=== PATIENT | female | born 1955 | race Caucasian/White ===

== ENCOUNTER 2021-12-16 14:32 | Observation (INO) | payer MEDICARE, SELFPAY ==
[2021-12-16] VITALS (29 sets, daily range): BP systolic 102–142; BP diastolic 76–99; PULSE 82–142; RESP 16–37; TEMP 36.6; O2SAT 90–98; BMI 44.7
--- NOTE | ~2021-12-16 | XR_ITS ---
EXAMINATION: XR chest 1V portable DATE: 12/16/2021 14:52 INDICATION: Chest pain. TECHNIQUE: A single frontal view of the chest was obtained. COMPARISON: Chest 2 views 01/21/2014, CT abdomen and pelvis 01/19/2014 FINDINGS: Sensitivity is decreased by obesity. There are airspace opacities in the lower lung zones. No visible pleural effusion. No pneumothorax. Cardiomegaly is noted. IMPRESSION: 1. Airspace opacities in the lower lung zones, consistent with atelectasis versus pneumonia. 2. Cardiomegaly. Reviewed, dictated and finalized at location A. IMPRESSION: 1. Airspace opacities in the lower lung zones, consistent with atelectasis vers us pneumonia. 2. Cardiomegaly.
--- NOTE | ~2021-12-16 | US_ITS ---
EXAMINATION: US venous doppler [facility] DATE: 12/17/2021 11:29 INDICATION: Bilateral lower limb swelling, shortness of breath TECHNIQUE: Jernigan scale images without and with compression and Doppler images of the bilateral lower e xtremity veins were obtained. COMPARISON: None FINDINGS: The right common femoral vein, profunda femoral vein, femoral vein, popliteal vein, peroneal trunk, p osterior tibial veins, and greater saphenous vein are patent. The left common femoral vein, profunda femoral vein, femoral vein, popliteal vein, peroneal trunk, po sterior tibial veins, and greater saphenous vein are patent. IMPRESSION: 1. Patent bilateral lower extremity veins. No evidence of deep venous thrombosis. Reviewed, dictated and finalized at location A. IMPRESSION: 1. Patent bilateral lower extremity veins. No evidence of deep venous thrombosi s.
--- NOTE | 2021-12-16 14:42 | ECG_ITS ---
Measurements Intervals [place] Rate: 133 P: CT: 0 QRS: 109 QRSD: 145 T: -51 QT: 316 QTc: 472 Interpretive Statements ATRIAL FIBRILLATION WITH RAPID VENTRICULAR RESPONSE RIGHT AXIS DEVIATION [QRS AXIS > 100] RIGHT BUNDLE BRANCH BLOCK [120+ ms QRS DURATION, UPRIGHT V1, 40+ ms S IN I/aVL/V4/V5/V6] NONSPECIFIC T-WAVE ABNORMALITY ABNORMAL ECG NO PREVIOUS ECG AVAILABLE FOR COMPARISON Electronically Signed On 12-16-2021 17:05:43 CDT by Mac Acosta M.D.
[2021-12-16 15:06] LABS: Basophils Absolute Auto 0.1 K/mm3 (0.0-0.1); Basophils Percent Auto 0.8 % (0.2-1.2); Eosinophils Absolute Auto 0.1 K/mm3 (0-0.3); Eosinophils Percent Auto 1.4 % (0-4.4); Hematocrit 42.3 % (37.0-47.0); Hemoglobin 13.5 g/dL (12.0-15.0); Immature Granulocyte Absolute 0.01 K/mm3 (0.00-0.031); Immature Granulocyte Percent A 0.1 % (0-0.5); Lymphocytes Absolute Auto 1.71 K/mm3 (0.9-3.2); Lymphocytes Percent Auto 21.8 % (18.3-44.2); Mean Corpuscular HGB Conc 31.9 g/dl (32-36); Mean Corpuscular Hemoglobin 29.8 pg (26-34); Mean Corpuscular Volume 93.4 fl (80-100); Mean Platelet Volume 9.4 fl (7.4-10.4); Monocytes Absolute Auto 0.7 K/mm3 (0.1-0.6); Monocytes Percent Auto 8.7 % (2.6-8.5); Neutrophils Absolute Auto 5.3 K/mm3 (1.3-6.7); Neutrophils Percent Auto 67.2 % (45.5-73.1); Platelet Count Result 206 k/mm3 (150-375); Red Blood Count 4.53 M/mm3 (4.2-5.4); White Blood Count 7.9 K/mm3 (4.5-10.0)
[2021-12-16 15:16] LABS: Alanine Aminotransferase 77 U/L (4-35); Albumin Level 3.5 g/dL (3.5-5.1); Alkaline Phosphatase 70 U/L (38-126); Anion Gap 7 mmol/L (8-16); Aspartate Amino Transferase 77 U/L (14-36); Bilirubin,Total 0.5 mg/dL (0.2-1.3); Blood Urea Nitrogen 21 mg/dL (7-17); Calcium 8.7 mg/dL (8.4-10.2); Carbon Dioxide 23 mmol/L (22-30); Chloride 109 mmol/L (98-107); Estimated CRCL calculation 75 ml/min; Estimated Glomerular Filt Rate > 60; Glucose 103 mg/dL (65-110); Lipase 152 U/L (23-300); Potassium 4.1 mmol/L (3.4-5.0); Sodium 139 mmol/L (137-145)
[2021-12-16 15:25] LABS: INR 1.1; Prothrombin Time 13.7 Seconds (11.1-14.7)
--- NOTE | 2021-12-16 15:25 | ED.ARRPALP ---
HPI - Arrhythmia/Palpitations General Chief Complaint: Arrhythmia/Palpitations Stated Complaint: irregular heartbeat with sob x 1 week Time Seen by Provider: 12/16/21 14:42 Source: RN notes reviewed History of Present Illness HPI narrative: Patient presents emergency department from PCPs office for rapid heart rate. The patient went to Dr. Reda's office today and was found to be in A. fib with RVR patient does not have a history of atrial fibrillation. States that she has intermittently felt her heart was racing over the past week with some intermittent shortness of breath states she does have an occasional feeling of chest tightness as well. She denies being on any blood thinners she denies any fevers or chills abdominal pain nausea vomiting Related Data Home Medications Medication Instructions Recorded Confirmed calcium carbonate 600 mg-vitamin 1 tablet PO DAILY 12/16/21 D3 20 mcg (800 unit) chewable tablet cholecalciferol (vitamin D3) 25 25 mcg PO DAILY 12/16/21 mcg (1,000 unit) capsule vitamin B complex 1 tablet PO DAILY 12/16/21 Allergies Allergy/AdvReac Type Severity Reaction Status Date / Time Mold (Blue) Cheese AdvReac Unknown THROAT Uncoded 12/16/21 15:41 SWELLING Review of Systems Review of Systems: Gen.: Denies fevers or chills ENT: Denies congestion Respiratory: Ports shortness of CV: See HPI GI: Denies abdominal pain nausea, emesis or diarrhea Musculoskeletal: Denies back pain or muscle pain Neuro: Denies numbness, tingling, weakness or focal weakness Skin: Denies rash Except as documented, all other systems reviewed and negative [facility] Past Medical History Medical History Cystocele, midline Herpes zoster without complication Symptomatic menopausal or female climacteric states Vitamin D deficiency, unspecified Family History Family History Mother Family history of congenital heart disease Father Family history of cardiovascular disease Cerebrovascular accident, Onset Age: 47 Grandparent Diabetes mellitus Other Hypertension Social History Social History (Updated 12/16/21 @ 16:11 by Shakeel Suero DO) Smoking status: Never smoker Alcohol intake: never Exam Narrative: APPEARANCE: No acute distress, nontoxic, resting in bed EYES: EOMI HEENT: Normocephalic, atraumatic, OMM RESPIRATORY: No respiratory distress Clear to auscultation bilaterally with no rhonchi wheezing or rales. CARDIOVASCULAR: Irregular and tachycardic without murmurs rubs or gallops. ABDOMINAL: Soft, nontender, nondistended, no rebound or guarding MUSCULOSKELETAl: Moves all extremities. No clubbing, cyanosis or edema. NEURO: Awake and alert. Following commands, speech normal, no focal deficits SKIN:: Warm, dry. No rashes lesions or abrasions PSYCHIATRIC: Normal affect/mood, Course Course Emergency Course: Discussed with FUR CUTTER Oralia for Dr. Acosta agrees with consult Discussed with FUR CUTTER Beck for Dr. Vargas agrees with admission Discussed with patient and family results of workup and diagnosis. Discussed need for admission. Patient and family understand and agree to current treatment plan Vital Signs Vital signs: Vital Signs Temperature 97.8 F 12/16/21 14:39 Pulse Rate 142 H 12/16/21 14:39 Respiratory Rate 32 H 12/16/21 14:39 Blood Pressure 111/99 H 12/16/21 14:39 Pulse Oximetry 97 12/16/21 14:39 Temperature 97.8 F 12/16/21 14:39 Pulse Rate 121 H 12/16/21 15:27 Respiratory Rate 32 H 12/16/21 14:39 Blood Pressure 111/99 H 12/16/21 15:27 Pulse Oximetry 97 12/16/21 14:39 MDM - Arrhythmia/Palpitations Lab Data Result diagrams: 12/16/21 15:01 12/16/21 15:01 Labs: Lab Results 12/16/21 12/16/21 12/16/21 Range/Units 15:01 15:01 15:01 WBC 7.9 (4.5-10.0) K/mm3 RBC 4.53 (4
[2021-12-16 15:26] LABS: Partial Thromboplastin Time 25.3 SECONDS (22.3-36.8)
[2021-12-16 15:27] LABS: Troponin I 0.014 ng/mL (0.000-0.034)
[2021-12-16] MEDS: dilTIAZem 100 MG/100 ML 100 MG/100 ML BAG IV CONT (15:27)
[2021-12-16] MEDS: dilTIAZem HCl INJ 25 MG/5 ML VIAL 5 MG IV PUSH (15:30)
[2021-12-16 15:40] LABS: NT Pro B Type Natriuretic Pept 3490 pg/mL (5-100)
[2021-12-16] MEDS: ENOXAPARIN 100 MG/ML SYRINGE 95 MG SUB-Q (15:46)
[2021-12-16] MEDS: ENOXAPARIN 30 MG/0.3 ML SYRINGE SUB-Q (15:46)
[2021-12-16 16:29] LABS: SARS-CoV-2 RNA PCR Negative
--- NOTE | 2021-12-16 18:41 | PM.IMHP ---
H&P: HPI History of Present Illness Date/Time: 12/16/21 18:41 Chief Complaint: Shortness of breath and rapid heart rate Narrative: Patient is a 66-year-old female with no significant past medical history who presented to the ED from her primary care provider's office for rapid heart rate and abnormal rhythm. Patient stated that this is been going on for a couple of days where she is feeling heaviness in her left upper shoulder and she is experiencing nausea. Patient did state that she does get very short of breath with moving or walking and patient did get very short of breath when I asked her to sit up. She also complained of severe exhaustion which she stated is she is not a nap for however she has been taking 4 hour naps pretty regularly. She states that she has been urinating okay and has been very stressed out be due to her present illness. BNP is slightly elevated she denies any sweats, fevers, chills, numbness, tingling, dizziness. Patient is being admitted to the hospital service under observation. Review of Systems Review of Systems: All systems reviewed & are unremarkable except as noted in HPI and below PMFSH Past Medical History Medical History (Updated 12/16/21 @ 18:59 by LC Gonzalez) Back fracture Cystocele, midline Elbow fracture Foot fracture Hand fracture Herpes zoster without complication Symptomatic menopausal or female climacteric states Vitamin D deficiency, unspecified Family History Family History Mother Family history of congenital heart disease Father Family history of cardiovascular disease Cerebrovascular accident, Onset Age: 47 Grandparent Diabetes mellitus Other Hypertension Social History Social History (Updated 12/16/21 @ 18:56 by LC Gonzalez) Social History: Patient lives at home with her and is the primary caregiver for her . Her son and her daughter are her surrogate and she wishes to be a full code at this time. Smoking status: Never smoker Alcohol intake: never Substance use: never Living arrangements: with family Occupation/Education: retired Additional occupation/education comments: Teacher Gender identity (if verbalized by the patient): Female Sexual Orientation (if Verbalized by the Patient): Straight or Heterosexual Spiritual care concerns: No Agree to blood products: Yes Meds Home Medications and Allergies Home Medications Medication Instructions Recorded Confirmed Type calcium carbonate 600 mg-vitamin 1 tablet PO DAILY 12/16/21 History D3 20 mcg (800 unit) chewable tablet cholecalciferol (vitamin D3) 25 25 mcg PO DAILY 12/16/21 History mcg (1,000 unit) capsule vitamin B complex 1 tablet PO DAILY 12/16/21 History Allergies Allergy/AdvReac Type Severity Reaction Status Date / Time Mold (Blue) Cheese AdvReac Unknown THROAT Uncoded 12/16/21 15:41 SWELLING Vital Signs Vital Signs - 24 hr 12/16/21 14:38 12/16/21 14:39 12/16/21 14:42 Temperature 97.8 F Pulse Rate 133 H 142 H 124 H Respiratory Rate 21 H 32 H 29 H Blood Pressure 111/99 H 111/99 H Pulse Oximetry 90 97 92 12/16/21 14:47 12/16/21 15:27 12/16/21 15:46 Temperature Pulse Rate 134 H 121 H 110 H Respiratory Rate 23 H 24 H Blood Pressure 111/99 H Pulse Oximetry 93 12/16/21 15:48 12/16/21 16:06 12/16/21 16:17 Temperature Pulse Rate 122 H 110 H 110 H Respiratory Rate 25 H 29 H 21 H Blood Pressure Pulse Oximetry 12/16/21 16:30 12/16/21 16:32 Temperature Pulse Rate 108 H 89 Respiratory Rate 28 H 26 H Blood Pressure 115/78 Pulse Oximetry Exam Const: General: cooperative, well developed, alert, awake, acute distress other (with movement), anxious and tired appearing Nutritional Appearance: well nourished Orientation/consciousness: patient oriented x3 Limitations:
[2021-12-16 18:53] LABS: Troponin I 0.015 ng/mL (0.000-0.034)
--- NOTE | 2021-12-16 21:14 | ADMGEN ---
This patient, Kandice Helton, was admitted to IMU Room 213-01 at 2009. Patient/family oriented to hospital policies and general routines including ID bracelet, bed and alarms, visiting hours, pain management, procedures, bathroom and other care routines, personal items, smoking policy, room service/diet, and visiting hours. Information on how to activate the Rapid Response Team has been discussed. Patient/Family are encouraged to report perceived risks to care and to ask questions if they do not understand what they are told or what they should do.
[2021-12-16 21:49] LABS: Troponin I 0.017 ng/mL (0.000-0.034)
--- NOTE | 2021-12-16 22:54 | ADMGEN ---
This patient, Kandice Helton, was admitted to IMU Room 213-01 at 2250. Patient/family oriented to hospital policies and general routines including ID bracelet, bed and alarms, visiting hours, pain management, procedures, bathroom and other care routines, personal items, smoking policy, room service/diet, and visiting hours. Information on how to activate the Rapid Response Team has been discussed. Patient/Family are encouraged to report perceived risks to care and to ask questions if they do not understand what they are told or what they should do.
[2021-12-17] VITALS (18 sets, daily range): BP systolic 100–130; BP diastolic 63–91; PULSE 73–107; RESP 18–22; TEMP 35.2–36.9; O2SAT 93–98
--- NOTE | 2021-12-17 | ECHO_ITS ---
Patient Info Name: Kandice Helton Age: 66 years : 1955 Gender: Female Ht: 63 in Wt: 274 lbs BSA: 2.43 m2 HR: 82 bpm BP: 100 / 63 mmHg Heart Rhythm: Atrial Fibrillation Technical Quality: Fair Exam Date: 12/17/2021 8:23 AM Exam Location: [facility] Pulmonary Patient Status: Outpatient Admit Date: 12/16/2021 Staff Ordering Physician: Vito Paz Customer Service Associate: India Navarro RDCS Attending Provider: Latoya Vargas MD Referring Physician: Jackson CRAWFORD; Exam Type: CA echo doppler color flow Study Info Indications - fluid overload Complete two-dimensional, color flow and Doppler transthoracic echocardiogram is performed. Summary 1. Complete two-dimensional, color flow and Doppler transthoracic echocardiogram is performed. 2. Left ventricular chamber dimension is moderately enlarged. 3. Left ventricular systolic function is severely reduced, estimated at 30-35%. 4. There is no increased left ventricular wall thickness. 5. The left ventricular diastolic function is abnormal. 6. Right ventricular chamber dimension is mildly enlarged. 7. Right ventricular systolic function is reduced. 8. Left atrial chamber dimension is moderately enlarged. 9. Right atrial chamber dimension is moderately enlarged. 10. There is mild to moderate mitral valve regurgitation. 11. There is mild tricuspid valve regurgitation. 12. Mild pulmonary hypertension, estimated pulmonary arterial systolic pressure is 35 mmHg. 13. There is mild pulmonic regurgitation. Left Ventricle Left ventricular chamber dimension is moderately enlarged. Left ventricular systolic function is severely reduced, estimated at 30-35%. There is no increased left ventricular wall thickness. The left ventricular diastolic function is abnormal. Right Ventricle Right ventricular chamber dimension is mildly enlarged. Right ventricular systolic function is reduced. Left Atria Left atrial chamber dimension is moderately enlarged. Right Atria Right atrial chamber dimension is moderately enlarged. Atrial Septum Intact interatrial septum visualized by color flow imaging. Aortic Valve The aortic valve is trileaflet. There is mild aortic valve sclerosis. There is no aortic valve stenosis. There is trace aortic valve regurgitation. Pulmonic Valve The pulmonic valve is normal. There is no pulmonic valve stenosis. There is mild pulmonic regurgitation. Mitral Valve The mitral valve has normal leaflets. There is no mitral valve stenosis. There is mild to moderate mitral valve regurgitation. Tricuspid Valve The tricuspid valve leaflets are normal. There is no significant tricuspid valve stenosis. There is mild tricuspid valve regurgitation. Mild pulmonary hypertension, estimated pulmonary arterial systolic pressure is 35 mmHg. Pericardium/Pleural The pericardium appears normal. There is small pericardial effusion. Inferior Vena Cava Dilated inferior vena cava with <50% collapse upon inspiration consistent with elevated right atrial pressure, 15 mmHg. Aorta The aortic root size at the sinus of Valsalva is normal. Left Ventricular Outflow Tract Name Value Normal LVOT 2D LVOT Diameter 2.0 cm
[2021-12-17] MEDS: FUROSEMIDE INJ 40 MG/4 ML VIAL IV PUSH (00:04)
[2021-12-17 06:01] LABS: Basophils Absolute Auto 0.1 K/mm3 (0.0-0.1); Basophils Percent Auto 0.8 % (0.2-1.2); Eosinophils Absolute Auto 0.1 K/mm3 (0-0.3); Eosinophils Percent Auto 2.3 % (0-4.4); Hematocrit 39.6 % (37.0-47.0); Hemoglobin 12.6 g/dL (12.0-15.0); Immature Granulocyte Absolute 0.01 K/mm3 (0.00-0.031); Immature Granulocyte Percent A 0.2 % (0-0.5); Lymphocytes Absolute Auto 1.53 K/mm3 (0.9-3.2); Lymphocytes Percent Auto 24.8 % (18.3-44.2); Mean Corpuscular HGB Conc 31.8 g/dl (32-36); Mean Corpuscular Hemoglobin 29.9 pg (26-34); Mean Corpuscular Volume 94.1 fl (80-100); Mean Platelet Volume 9.5 fl (7.4-10.4); Monocytes Absolute Auto 0.6 K/mm3 (0.1-0.6); Monocytes Percent Auto 9.4 % (2.6-8.5); Neutrophils Absolute Auto 3.9 K/mm3 (1.3-6.7); Neutrophils Percent Auto 62.5 % (45.5-73.1); Platelet Count Result 190 k/mm3 (150-375); Red Blood Count 4.21 M/mm3 (4.2-5.4); Red Cell Distribution Width 14.8 % (11.5-14.5); White Blood Count 6.2 K/mm3 (4.5-10.0)
[2021-12-17 06:06] LABS: Alanine Aminotransferase 77 U/L (4-35); Albumin Level 3.4 g/dL (3.5-5.1); Alkaline Phosphatase 62 U/L (38-126); Anion Gap 5 mmol/L (8-16); Aspartate Amino Transferase 67 U/L (14-36); Bilirubin,Total 0.7 mg/dL (0.2-1.3); Blood Urea Nitrogen 14 mg/dL (7-17); Calcium 8.3 mg/dL (8.4-10.2); Carbon Dioxide 27 mmol/L (22-30); Chloride 109 mmol/L (98-107); Estimated CRCL calculation 81 ml/min; Estimated Glomerular Filt Rate > 60; Glucose 82 mg/dL (65-110); Potassium 3.2 mmol/L (3.4-5.0); Sodium 141 mmol/L (137-145)
[2021-12-17] MEDS: POTASSIUM CHLORIDE 20 MEQ TABLET 40 MEQ PO (13:28)
--- NOTE | 2021-12-17 15:09 | PM.CNCAR ---
Assessment and Plan Assessment and plan (1) Atrial fibrillation with rapid ventricular response: Code(s): I48.91 - Unspecified atrial fibrillation Status: Acute Assessment and Plan: Atrial fibrillation with rapid ventricular response for unknown duration. Possibly as far back as Evgeny or beyond. She was having palpitations at that time. She has a chads Vasc score of 3 given heart failure, age and gender. Anticoagulation is warranted. I talked about the risks, benefits alternatives of anticoagulation she is agreeable. Also talked about the different anticoagulants including Eliquis, Xarelto or warfarin. Her is on Eliquis and she is familiar with this medication. Therefore will start her on Eliquis 5 mg p.o. b.i.d.. Also talked about rate versus rhythm control strategy. Initially will pursue rate control. Will start her on medications and pursue outpatient elective cardioversion after minimum of 4 weeks without interrupted anticoagulation. Will discontinue her diltiazem drip and start her on metoprolol tartrate 25 mg p.o. b.i.d. and transition to long-acting metoprolol succinate because of her cardiomyopathy and heart failure. Will check a TSH and T4 level. Will ensure that her magnesium and potassium have been checked in adequately replaced if need be. Apnea link will be ordered also for a screen for sleep apnea as a possible etiology of her sleep apnea. Echocardiogram is already ordered and read (2) Acute systolic (congestive) heart failure: Code(s): I50.21 - Acute systolic (congestive) heart failure Status: Acute Assessment and Plan: Heart failure is likely from cardiomyopathy related to atrial fibrillation with rapid ventricular response albeit other possibilities do remain. Will start Entresto 24/26 mg p.o. b.i.d.. Will start furosemide 20 mg daily. And follow electrolytes with a BMP in the morning. She will need an outpatient stress test and follow-up echocardiogram in 3 months (3) Cardiomyopathy: Code(s): I42.9 - Cardiomyopathy, unspecified Status: Acute Assessment and Plan: New onset severe cardiomyopathy. Likely related atrial fibrillation with rapid ventricular response albeit cannot exclude other etiologies to this point. Due to her risk of sudden cardiac with an ejection fraction less than 35%, LifeVest will be ordered. Patient is agreeable and understands (4) Right bundle branch block: Code(s): I45.10 - Unspecified right bundle-branch block Status: Acute History of Present Illness History of Present Illness Consult date/time: 12/17/21 15:09 Requesting physician: Shakeel Suero DO Consult reason: atrial fibrillation Reason For Visit: Atrial fibrillation with RVR Narrative: Reason for consultation: Atrial fibrillation Date of service 12/17/2021 Requesting provider: Dr. Suero History patient is a 66-year-old female previously fairly healthy who presented to her primary care office Dr. Kyleigh Read because of some weakness, shortness of breath. Patient was found to be in atrial fibrillation with rapid ventricular response and sent to the ER via EMS for further workup evaluation and treatment. Patient states that she had some palpitations around Evgeny. She would feel her heart beating erratically for couple of days and then it stops and then she states that a came back for couple of days but in general has not felt palpitations since that time. Over the past couple of weeks though she has had some heaviness in her chest and her she is doing things like climbing up and down steps. She has had some worsening swelling over the past few months. She denies any paroxysmal nocturnal dyspnea. She does snore but no witnessed apnea. She has had no syncope but did have an episode of severe dizziness while shopping this week. Over the past week or so though she has been extremely weak, short of breath. She has had no energy and no s
[2021-12-17] MEDS: METOPROLOL TARTRATE 25 MG TABLET PO (16:03)
--- NOTE | 2021-12-17 16:05 | PCCCNOTE ---
On 12/17/21, the student, [Nuvia Waggoner], provided care and completed [facility] documentation on this patient. I have reviewed the student's documentation and agree with the findings.
--- NOTE | 2021-12-17 17:43 | PM.IMPN ---
Progress Note: A&P Assessment and Plan (1) Atrial fibrillation with rapid ventricular response: Code(s): I48.91 - Unspecified atrial fibrillation Status: Acute Assessment and Plan: New onset AFib RVR EKG shows AFib with a rate of 133 Cardizem drip started Cards consulted thank you for your recommendations Tele monitor Trend heart rate Adjust medications as indicated Echo ordered and pending 12/17/2021 interval history: 66-year-old female presented with a new onset atrial fibrillation most likely secondary to stress is patient states her is severely ill for several years and she is his caregiver, patient seen by lock fitter stop the diltiazem drip started the patient on metoprolol rate control and patient is CHADS Vasc score is 3 based on hx heart failure, age and gender. patient is familiar with Eliquis Eliquis 5 mg b.i.d. patient will continue anticoagulation without interruption for 1 month before having outpatient cardioversion, patient cardiac echo showed severely reduced ejection fraction of 30% and left ventricular diastolic function is abnormal, patient may need cardiac catheterization to further evaluate cardiomyopathy. (2) Dyspnea: Qualifiers: Dyspnea type: shortness of breath Qualified Code(s): R06.02 - Shortness of breath Code(s): R06.00 - Dyspnea, unspecified Status: Acute Assessment and Plan: Complaints of shortness of breath Troponins negative BNP 3490 1 dose of Lasix Could be a combination of AFib and fluid overload Trend labs Labs in a.m. (3) Fluid overload: Code(s): E87.70 - Fluid overload, unspecified Status: Acute Assessment and Plan: BNP elevated at 3490 1 dose of IV Lasix given Echo ordered and pending Bilateral lower extremity Dopplers 2+ pitting edema on the bilateral lower extremity Trend urine output Subjective Date/time seen: 12/17/21 17:43 Chief Complaint: Shortness of breath and rapid heart rate HPI-Narrative: Patient is a 66-year-old female with no significant past medical history who presented to the ED from her primary care provider's office for rapid heart rate and abnormal rhythm. Patient stated that this is been going on for a couple of days where she is feeling heaviness in her left upper shoulder and she is experiencing nausea. Patient did state that she does get very short of breath with moving or walking and patient did get very short of breath when I asked her to sit up. She also complained of severe exhaustion which she stated is she is not a nap for however she has been taking 4 hour naps pretty regularly. She states that she has been urinating okay and has been very stressed out be due to her present illness. BNP is slightly elevated she denies any sweats, fevers, chills, numbness, tingling, dizziness. Patient is being admitted to the hospital service under observation. 12/17/2021 interval history: 66-year-old female presented with a new onset atrial fibrillation most likely secondary to stress is patient states her is severely ill for several years and she is his caregiver, patient seen by lock fitter stop the diltiazem drip started the patient on metoprolol rate control and patient is CHADS Vasc score is 3 based on hx heart failure, age and gender. patient is familiar with Eliquis Eliquis 5 mg b.i.d. patient will continue anticoagulation without interruption for 1 month before having outpatient cardioversion, patient cardiac echo showed severely reduced ejection fraction of 30% and left ventricular diastolic function is abnormal, patient may need cardiac catheterization to further evaluate cardiomyopathy. Review of Systems Review of Systems: All systems reviewed & are unremarkable except as noted in HPI and below Exam Narrative: morbidly obese Patient is comfortable, NAD HEENT: eyes are clear and none icteric LUNGS: normal r
[2021-12-17] MEDS: APIXABAN 5 MG TABLET PO (20:29)
[2021-12-17] MEDS: SACUBITRIL/VALSARTAN 24-26 MG TABLET 1 TAB PO (20:30)
[2021-12-18] VITALS (14 sets, daily range): BP systolic 108–128; BP diastolic 72–94; PULSE 79–116; RESP 14–18; TEMP 36.1–36.8; O2SAT 95–99
[2021-12-18 06:49] LABS: Hematocrit 39.8 % (37.0-47.0); Hemoglobin 12.7 g/dL (12.0-15.0); Mean Corpuscular HGB Conc 31.9 g/dl (32-36); Mean Corpuscular Hemoglobin 29.4 pg (26-34); Mean Corpuscular Volume 92.1 fl (80-100); Mean Platelet Volume 9.3 fl (7.4-10.4); Platelet Count Result 196 k/mm3 (150-375); Red Blood Count 4.32 M/mm3 (4.2-5.4); Red Cell Distribution Width 14.6 % (11.5-14.5); White Blood Count 6.2 K/mm3 (4.5-10.0)
[2021-12-18 07:00] LABS: Anion Gap 5 mmol/L (8-16); Blood Urea Nitrogen 9 mg/dL (7-17); Calcium 8.3 mg/dL (8.4-10.2); Carbon Dioxide 25 mmol/L (22-30); Chloride 110 mmol/L (98-107); Estimated CRCL calculation 93 ml/min; Estimated Glomerular Filt Rate > 60; Glucose 89 mg/dL (65-110); Potassium 3.7 mmol/L (3.4-5.0); Sodium 140 mmol/L (137-145)
[2021-12-18] MEDS: METOPROLOL TARTRATE 25 MG TABLET PO (08:28)
[2021-12-18] MEDS: FUROSEMIDE 20 MG TABLET PO (08:28)
[2021-12-18] MEDS: APIXABAN 5 MG TABLET PO ×2 (08:28→20:11)
[2021-12-18] MEDS: SACUBITRIL/VALSARTAN 24-26 MG TABLET 1 TAB PO ×2 (08:29→20:11)
--- NOTE | 2021-12-18 09:49 | PM.PNCARD ---
Progress Note: A&P Assessment and Plan (1) Atrial fibrillation with rapid ventricular response: Code(s): I48.91 - Unspecified atrial fibrillation Status: Acute Assessment and Plan: Atrial fibrillation with rapid ventricular response for unknown duration. Possibly as far back as [place] or beyond. She was having palpitations at that time. She has a chads Vasc score of 3 given heart failure, age and gender. Anticoagulation is warranted. I talked about the risks, benefits alternatives of anticoagulation she is agreeable. Continue Eliquis. Continue metoprolol but will transition her to metoprolol succinate 50 mg p.o. daily. Will start her on medications and pursue outpatient elective cardioversion after minimum of 4 weeks without interrupted anticoagulation. (2) Acute systolic (congestive) heart failure: Code(s): I50.21 - Acute systolic (congestive) heart failure Status: Acute Assessment and Plan: Heart failure is likely from cardiomyopathy related to atrial fibrillation with rapid ventricular response albeit other possibilities do remain. Continue Entresto, metoprolol, furosemide. KCL 40 mg p.o. x1 as her potassium is low She will need an outpatient stress test and follow-up echocardiogram in 3 months (3) Cardiomyopathy: Code(s): I42.9 - Cardiomyopathy, unspecified Status: Acute Assessment and Plan: New onset severe cardiomyopathy. Likely related atrial fibrillation with rapid ventricular response albeit cannot exclude other etiologies to this point. Due to her risk of sudden cardiac with an ejection fraction less than 35%. Awaiting [facility] (4) Right bundle branch block: Code(s): I45.10 - Unspecified right bundle-branch block Status: Acute Assessment and Plan: She has a mildly abnormal ApneaLink. Will recommend a formal outpatient sleep study Subjective Date/time seen: 12/18/21 09:49 Interval history: 66-year-old with weakness, atrial fibrillation with rapid ventricular response, cardiomyopathy Date of service 12/18/2021: She is tolerating her medications well. She feels okay denies any chest pain. She has some dyspnea and elevated heart rate by walking to the bathroom but overall is doing better. Swelling has improved. Heart rate is controlled at rest. Off diltiazem drip Review of Systems Review of Systems: All systems reviewed & are unremarkable except as noted in HPI and below Constitutional: Constitutional: Denies fatigue, Denies headache(s), Reports lethargy and Reports weakness Eyes: Eyes: Denies blurry vision ENT: Denies Normal hearing present, Denies headache(s) and Denies neck pain Cardiovascular: Cardiovascular: Denies chest pain, Reports palpitations, Reports dyspnea and Reports dyspnea on exertion Respiratory: Respiratory: Reports dyspnea and Reports dyspnea on exertion Gastrointestinal: Gastrointestinal: Denies abdominal pain Genitourinary: Genitourinary: Denies hematuria and Denies flank pain Musculoskeletal: Musculoskeletal: Denies neck pain Integumentary/Breasts: Skin/Breast: Denies dry skin Neurologic: Denies Normal hearing present, Denies headache(s) and Reports weakness Psychiatric: Psychiatric: Denies anxiety Endocrine: Endocrine: Denies fatigue and Reports palpitations Hematologic/Lymphatic: Hematologic/Lymphatic: Denies easy bleeding Allergic/Immunologic: Allergic/Immunologic: Denies GI upset with certain foods Exam Narrative: Pleasant and appropriate and appears stated age Const: General: comfortable and no acute distress HENMT: General nose exam: Normal nares present Eyes: Sclera: sclerae normal Neck: Neck: supple and no JVD Chest: Other: No reproducible chest wall pain to palpation Resp: Auscultation: diminished lung sounds Cardio: Rate: regular rate Rhythm: abnormal rhythm irregularly irregular GI: Inspection: non-distended Auscultation: normal bowel sounds Skin:
--- NOTE | 2021-12-18 10:51 | PC.NURSE ---
RN called [facility] at requesting a time when patient would get [facility] today. [employer] Manager said that patient insurance was denying at this time and that they needed the ECHO report faxed to [phone]. Report was faxed at 1050am on 12-18-21.
[2021-12-18] MEDS: POTASSIUM CHLORIDE 20 MEQ TABLET 40 MEQ PO (11:48)
--- NOTE | 2021-12-18 17:36 | PM.DS ---
DS: Admitting Diagnosis Discharge Date 12/18/2021 Admitting Diagnosis Shortness of breath and rapid heart rate DS: Discharge Diagnosis Discharge Diagnosis (1) Atrial fibrillation with rapid ventricular response: Code(s): I48.91 - Unspecified atrial fibrillation Status: Acute Assessment and Plan: New onset AFib RVR EKG shows AFib with a rate of 133 Cardizem drip started Cards consulted thank you for your recommendations Tele monitor Trend heart rate Adjust medications as indicated Echo ordered and pending 12/17/2021 interval history: 66-year-old female presented with a new onset atrial fibrillation most likely secondary to stress is patient states her is severely ill for several years and she is his caregiver, patient seen by stippler stop the diltiazem drip started the patient on metoprolol rate control and patient is CHADS Vasc score is 3 based on hx heart failure, age and gender. patient is familiar with Eliquis Eliquis 5 mg b.i.d. patient will continue anticoagulation without interruption for 1 month before having outpatient cardioversion, patient cardiac echo showed severely reduced ejection fraction of 30% and left ventricular diastolic function is abnormal, patient may need cardiac catheterization to further evaluate cardiomyopathy. (2) Dyspnea: Qualifiers: Dyspnea type: shortness of breath Qualified Code(s): R06.02 - Shortness of breath Code(s): R06.00 - Dyspnea, unspecified Status: Acute Assessment and Plan: Complaints of shortness of breath Troponins negative BNP 3490 1 dose of Lasix Could be a combination of AFib and fluid overload Trend labs Labs in a.m. (3) Fluid overload: Code(s): E87.70 - Fluid overload, unspecified Status: Acute Assessment and Plan: BNP elevated at 3490 1 dose of IV Lasix given Echo ordered and pending Bilateral lower extremity Dopplers 2+ pitting edema on the bilateral lower extremity Trend urine output DS: Summary Hospital Course Reason for hospitalization: Chief Complaint: Shortness of breath and rapid heart rate Narrative: Patient is a 66-year-old female with no significant past medical history who presented to the ED from her primary care provider's office for rapid heart rate and abnormal rhythm. Patient stated that this is been going on for a couple of days where she is feeling heaviness in her left upper shoulder and she is experiencing nausea. Patient did state that she does get very short of breath with moving or walking and patient did get very short of breath when I asked her to sit up. She also complained of severe exhaustion which she stated is she is not a nap for however she has been taking 4 hour naps pretty regularly. She states that she has been urinating okay and has been very stressed out be due to her present illness. BNP is slightly elevated she denies any sweats, fevers, chills, numbness, tingling, dizziness. Patient is being admitted to the hospital service under observation. Hospital Course: 12/17/2021 interval history: 66-year-old female presented with a new onset atrial fibrillation most likely secondary to stress is patient states her is severely ill for several years and she is his caregiver, patient seen by stippler stop the diltiazem drip started the patient on metoprolol rate control and patient is CHADS Vasc score is 3 based on hx heart failure, age and gender. patient is familiar with Eliquis Eliquis 5 mg b.i.d. patient will continue anticoagulation without interruption for 1 month before having outpatient cardioversion, patient cardiac echo showed severely reduced ejection fraction of 30% and left ventricular diastolic function is abnormal, patient may need cardiac catheterization to further evaluate cardiomyopathy. today patient remains clinically stable due to severe cardiomyopathy with ejection fraction
--- NOTE | 2021-12-18 18:40 | PC.NURSE ---
Discharge packet and new medication scripts discussed with patient. IV is out. Patient just waiting of artist's representative from [facility].
== END 2021-12-18 20:13 | disposition home or self-care (01) ==
LOC: ANHED 16:13 → ANHIMU 12-17 10:18
PROVIDERS: Internal Medicine Cardiovascular Disease; Admitting Provider Internal Medicine; Emergency Provider Emergency Medicine; PCP Family Medicine; Visit Provider Family Medicine
DX: I48.91 Unspecified atrial fibrillation (principal); I50.21 Acute systolic (congestive) heart failure; I42.9 Cardiomyopathy, unspecified; I45.10 Unspecified right bundle-branch block; R06.00 Dyspnea, unspecified; M79.89 Other specified soft tissue disorders; E87.70 Fluid overload, unspecified; I34.0 Nonrheumatic mitral (valve) insufficiency; I36.1 Nonrheumatic tricuspid (valve) insufficiency; I27.20 Pulmonary hypertension, unspecified; E55.9 Vitamin D deficiency, unspecified; Z20.822 Contact with and (suspected) exposure to COVID-19
CPT/HCPCS: 36415; 71045; 80048; 80053; 83690; 83735; 83880; 84436; 84443; 84484; 85025; 85027; 85610; 85730; 93005; 93306; 93970; 94762; 96372; 96374; 96375; 99285; A9270; C9803; G0378; J1650; J1940; U0003; U0005

== ENCOUNTER 2022-01-13 08:44 | Emergency (ER) | payer MEDICARE, SELFPAY ==
[2022-01-13 08:50] VITALS: BP 83/65; PULSE 65; RESP 18; TEMP 37; O2SAT 96
--- NOTE | 2022-01-13 09:39 | ED.EXTPRO ---
HPI - Extremity Problem General Chief complaint: Extremity Problem,Nontraumatic Stated complaint: L swollen UE Time Seen by Provider: 01/13/22 09:00 Source: patient Mode of arrival: ambulatory Limitations: no limitations History of Present Illness HPI Narrative: 66-year-old female presents with left elbow swelling and tenderness since Monday night. Patient states she noticed her left elbow was tender and swollen. Patient states symptoms have been getting worse. Patient states left elbow is warm to touch. Patient denies fevers. Patient denies any history of skin infection. MD Complaint: extremity pain and extremity swelling Onset (ago): day(s) (Four) Pain Consistency: constant Location: left Quality: other (Pressure) Radiation: none Relieving factors: cold therapy Exacerbating factors: range of motion Associated symptoms: arthralgias Related Data Home Medications Medication Instructions Recorded Confirmed calcium carbonate 600 mg-vitamin 1 tablet PO DAILY 12/16/21 12/22/21 D3 20 mcg (800 unit) chewable tablet cholecalciferol (vitamin D3) 25 25 mcg PO DAILY 12/16/21 12/22/21 mcg (1,000 unit) capsule vitamin B complex 1 tablet PO DAILY 12/16/21 12/22/21 Allergies Allergy/AdvReac Type Severity Reaction Status Date / Time Mold (Blue) Cheese AdvReac Unknown THROAT Uncoded 01/13/22 09:10 SWELLING Review of Systems Review of Systems: All systems reviewed & are unremarkable except as noted in HPI and below Constitutional: Constitutional: Reports no additional constitutional complaints Eyes: Eyes: Reports no additional eye complaints ENT: Reports system reviewed and no additional complaints, except as documented Cardiovascular: Cardiovascular: Reports no additional cardiovascular complaints Respiratory: Respiratory: Reports no additional respiratory complaints Gastrointestinal: Gastrointestinal: Reports no additional gastrointestinal complaints Genitourinary: Genitourinary: Reports no additional female genitourinary complaints Musculoskeletal: Musculoskeletal: Reports joint swelling Comments: Left elbow Integumentary/Breasts: Skin/Breast: Reports erythema Comments: warm Neurologic: Reports system reviewed and no additional complaints, except as documented Psychiatric: Psychiatric: Reports no additional psychiatric complaints Endocrine: Endocrine: Reports no additional endocrine complaints Hematologic/Lymphatic: Hematologic/Lymphatic: Reports no additional hematologic/lymphatic complaints Allergic/Immunologic: Allergic/Immunologic: Reports no additional allergic/immunologic complaints [facility] Past Medical History Medical History (Updated 01/13/22 @ 09:46 by Chace Renee APRN) Back fracture Cystocele, midline Elbow fracture Foot fracture Hand fracture Herpes zoster without complication Right bundle branch block Symptomatic menopausal or female climacteric states Vitamin D deficiency, unspecified Family History Family History Mother Family history of congenital heart disease Father Family history of cardiovascular disease Cerebrovascular accident, Onset Age: 47 Grandparent Diabetes mellitus Other Hypertension Social History Social History Social History: Patient lives at home with her and is the primary caregiver for her . Her son and her daughter are her surrogate and she wishes to be a full code at this time. Smoking packs per day: 0 Smoking cigarettes per day: 0.0 Years smoked: 15 Smoking pack-years: 0.[address]
[2022-01-13 09:56] VITALS: RESP 16
== END 2022-01-13 09:57 | disposition home or self-care (01) ==
PROVIDERS: Emergency Provider Nurse Practitioner Family; PCP Family Medicine
DX: L02.414 Cutaneous abscess of left upper limb (principal); Z87.891 Personal history of nicotine dependence
CPT/HCPCS: 10060; 87070; 87147; 87181; 87186; 87205; 99283

== ENCOUNTER 2022-01-28 00:34 | Day surgery (SDC) | payer MEDICARE, SELFPAY ==
[2022-01-27 13:16] VITALS: BMI 41.9
--- NOTE | 2022-01-28 07:30 | ECG_ITS ---
Measurements Intervals [place] Rate: 63 P: 60 LA: 262 QRS: 80 QRSD: 161 T: -3 QT: 445 QTc: 458 Interpretive Statements SINUS RHYTHM WITH FIRST DEGREE AV BLOCK RIGHT BUNDLE BRANCH BLOCK BASELINE ARTIFACT- I, II, AVR ABNORMAL ECG Electronically Signed On 01-28-2022 17:09:17 CDT by Kelby Quick D.O.
[2022-01-28 08:05] VITALS: BP 119/86; PULSE 96; RESP 21; TEMP 36.5; O2SAT 94; BMI 42.1
[2022-01-28 08:18] LABS: Anion Gap 7 mmol/L (8-16); Blood Urea Nitrogen 29 mg/dL (7-17); Carbon Dioxide 22 mmol/L (22-30); Chloride 109 mmol/L (98-107); Estimated CRCL calculation 69 ml/min; Estimated Glomerular Filt Rate > 60; Glucose 94 mg/dL (65-110); Magnesium 2.2 mg/dL (1.6-2.3); Potassium 5.5 mmol/L (3.4-5.0); Sodium 138 mmol/L (137-145)
--- NOTE | 2022-01-28 09:11 | WPDMODSED ---
Moderate Sedation Note-Pt Data Patient Data Diagnosis: A atrial fibrillation Cardiomyopathy Present Complaint: No complaints this morning Procedure to be performed/Plan: DC cardioversion Allergies Allergy/AdvReac Type Severity Reaction Status Date / Time Mold (Blue) Cheese AdvReac Unknown THROAT Uncoded 01/28/22 08:02 SWELLING Home Medications Medication Instructions Recorded Confirmed Type calcium carbonate 600 mg-vitamin 1 tablet PO DAILY 12/16/21 01/27/22 History D3 20 mcg (800 unit) chewable tablet (Caltrate 600 plus D) cholecalciferol (vitamin D3) 25 25 mcg PO DAILY 12/16/21 01/27/22 History mcg (1,000 unit) capsule vitamin B complex (B 1 tablet PO DAILY 12/16/21 01/27/22 History Complex-Vitamin B12) apixaban 5 mg tablet (Eliquis) 5 mg PO Q12HR #60 tabs 12/22/21 01/27/22 Rx furosemide 20 mg tablet 20 mg PO DAILY #30 tabs 12/22/21 01/27/22 Rx metoprolol succinate 50 mg 50 mg PO QAM #30 tabs 12/22/21 01/27/22 Rx tablet,extended release 24 hr sacubitril 24 mg-valsartan 26 mg 1 tablet PO Q12HR #60 tabs 12/22/21 01/27/22 Rx tablet (Entresto) doxycycline hyclate 100 mg capsule 100 mg PO Q12H 10 days #20 caps 01/27/22 01/27/22 Rx Current Medications: Active Medications Sodium Chloride (Normal Saline Iv) 1,000 mls @ 30 mls/hr IV CONT .Q24H LEE Sedation/Anesthesia: No previous sedation/anesthesia problems (including family history). [facility] Past Medical History Medical History Acute systolic (congestive) heart failure Back fracture Cystocele, midline Elbow fracture Fluid overload Foot fracture Hand fracture Herpes zoster without complication Right bundle branch block Symptomatic menopausal or female climacteric states Vitamin D deficiency, unspecified Family History Family History Mother Family history of congenital heart disease Father Family history of cardiovascular disease Cerebrovascular accident, Onset Age: 47 Grandparent Diabetes mellitus Other Hypertension Social History Social History Social History: Patient lives at home with her and is the primary caregiver for her . Her son and her daughter are her surrogate and she wishes to be a full code at this time. Smoking packs per day: 0 Smoking cigarettes per day: 0.0 Years smoked: 15 Smoking pack-years: 0.00 Smoking status: Former smoker Tobacco type: cigarettes Second hand tobacco smoke exposure: Yes Smoking end date: 09/04/71 Alcohol intake: never Substance use: never Substance use type: does not use Living arrangements: with family Additional occupation/education comments: Teacher Gender identity (if verbalized by the patient): Female Sexual Orientation (if Verbalized by the Patient): Straight or Heterosexual Spiritual care concerns: No Agree to blood products: Yes Mod Sed Physical Exam Physical Exam Pre Procedural Exam: Normal: Throat, Airway, Lungs, Neuro Exam and Extremities and Variation: Appearance (Morbidly obese lady no distress), Heart Size (PMI not palpable), Heart Rate (Tachycardic) and Heart Rhythm (Irregularly irregular) Hours since solid foods: 12 Hours since liquid intake: 12 Mallampati Classification: class III Internal Medicine - PN: Obj Da Vital Signs Vital Signs: Vital Signs - 24 hr 01/28/22 08:05 Temperature 36.5 C Pulse Rate 96 Respiratory Rate 21 H Blood Pressure 119/86 Pulse Oximetry 94 Oxygen Delivery Room Air Meds/Results Medications: Active Medications Generic Name Dose Route Start Last Admin Trade Name Freq PRN Reason Stop Dose Admin Sodium Chloride 1,000 mls @ 30 mls/hr 01/28/22 07:30 Normal Saline Iv IV CONT .Q24H LEE Labs CBC & Chem 7: 01/28/22 07:58 Labs: Laboratory Result
--- NOTE | 2022-01-28 09:15 | ECG_ITS ---
Measurements Intervals [place] Rate: 106 P: [place]: 0 QRS: 93 QRSD: 156 T: -51 QT: 370 QTc: 491 Interpretive Statements ATRIAL FIBRILLATION WITH RAPID VENTRICULAR RESPONSE VENTRICULAR PREMATURE COMPLEX RIGHT BUNDLE BRANCH BLOCK MINIMAL Q WAVES- INFERIOR LEADS ST-T WAVE ABNORMALITY IN INFERIOR LEADS- CONSIDER ISCHEMIA ABNORMAL ECG Electronically Signed On 01-28-2022 8:00:10 CDT by Kelby Quick D.O.
[2022-01-28 09:20] VITALS: BP 120/83; PULSE 79; RESP 23; O2SAT 100
--- NOTE | 2022-01-28 09:24 | P.PCNCC_ITS ---
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 She is been treated with anticoagulation as an outpatient in recommendation for today was admission for attempt at restoring sinus rhythm electrically. Procedure Procedure performed:: DC cardioversion Sedation/Medication given:: Propofol 50 mg Estimated blood loss:: None Procedure note:: Patient was brought to the cardiac nursery laborer holding area where she was in the postabsorptive state IV access was placed in the right upper extremity. The patient had defibrillator patches placed in the AP position and a connected to the defibrillator which was set at 200 joules of synchronized mode. She was then sedated with propofol 1 bolus of 50 mg provided very good sedation. She was then DC counter shocked in synchronized fashion with 200 joules restoring normal sinus rhythm with heart rate in the 70s. Findings:: As above Conclusion:: Successful uncomplicated DC cardioversion of atrial fibrillation restoring sinus rhythm using 200 joules x1 shock Darrian Flynn MD [facility]
[2022-01-28 09:26] VITALS: BP 119/82; PULSE 67; RESP 21; O2SAT 98
[2022-01-28 09:40] VITALS: BP 112/70; PULSE 65; RESP 17; O2SAT 96
[2022-01-28 09:55] VITALS: BP 111/85; PULSE 67; RESP 22; O2SAT 98
== END 2022-01-28 10:27 | disposition home or self-care (01) ==
PROVIDERS: PCP Family Medicine; Visit Provider Specialist
PROC: 5A2204Z Restoration of Cardiac Rhythm, Single (ICD-10-PCS; principal; 2022-01-28 09:00)
DX: I48.19 Other persistent atrial fibrillation (principal); I42.0 Dilated cardiomyopathy; I11.0 Hypertensive heart disease with heart failure; I50.22 Chronic systolic (congestive) heart failure; E78.5 Hyperlipidemia, unspecified; Z86.73 Personal history of transient ischemic attack (TIA), and cerebral infarction without residual deficits; Z87.891 Personal history of nicotine dependence; Z79.01 Long term (current) use of anticoagulants
CPT/HCPCS: 36415; 80048; 83735; 92960; J2704; J7040

== ENCOUNTER 2022-03-22 07:19 | Outpatient (CLI) | payer MEDICARE, SELFPAY ==
--- NOTE | 2022-04-12 21:00 | WPDSLEEPSTUD ---
Sleep Study Date of Study: 03/22/22 Ordering Provider: MICHELET Bae Interpreting Physician: Jeannie Durand DO Sleep Study Type: Polysomnogram Height: 1.6 m Weight: 107.955 kg Body Mass Index: 42.1 Neck Circumference (inches): 14.5 [place]: 4 Reason for Sleep Study Daytime hypersomnia, unrefreshing sleep Sleep History The patient is a 66-year-old female with GERD, chronic back pain, acute systolic congestive heart failure, atrial fibrillation, right bundle branch block and history of tobacco use disorder that had a sleep study ordered by the Pulmonary office because of an abnormal ApneaLink test during a recent hospitalization. The patient denies awakening from sleep short of breath. She denies awakening at night with heartburn, belching or cough. Her family states that she does snore but it is never loud enough that others complain. She occasionally has trouble sleeping when she has a cold. She denies waking up gasping for air throughout the night. She denies having breathing problems at night observed by herself or others. She occasionally sweats excessively at night. She frequently has heart palpitations or irregular heartbeats during the night. She constantly falls asleep during the day but never while driving. She denies sleep paralysis, cataplexy and hypnagogic / hypnopompic hallucinations. She denies having trouble at school or work due to sleepiness. She denies having nightmares. She frequently remembers her dreams. She frequently has thoughts racing through her mind. She denies feeling sad or depressed. She frequently has anxiety. She denies having muscular tension. She denies noticing parts of her body jerk. She occasionally kicks during the night. She occasionally has crawling and aching feelings in her legs and occasionally has leg pain during the night. She frequently grinds her teeth during sleep and frequently awakens with morning jaw pain. The patient is occasionally bothered by pain during the day and occasionally awakened by pain during the night. She occasionally wakes up feeling stiff in the morning. She occasionally wakes up with sore achy muscles. She occasionally wakes up with pain in the neck, spine and other joints. She goes to bed between midnight to 1:00 a.m. on both weekdays and weekends. She is able to fall asleep immediately. She will wake up once at most throughout the night to use the restroom. She is able fall back asleep within 5 minutes. She wakes up between 8:29 a.m. on both weekdays and weekends. She gets 6-1/2 hours of sleep per night. She will stay in bed for 30 minutes after waking up in the morning. She currently lives with her and 2 adult children. She will drink decaffeinated tea within 2 hours of bedtime. She does not engage in physical exercise before bedtime. She will read on her phone before falling asleep. She did take 3-4 hour naps in December and January 2022. She drinks 2-3 cups of coffee per day. She quit smoking cigarettes several years ago. She denies alcohol recreational drug use. PENDING SALE TO [facility] Past Medical History Medical History Acute systolic (congestive) heart failure Back fracture Cystocele, midline Elbow fracture Fluid overload Foot fracture Hand fracture Herpes zoster without complication History of cardioversion 5. Successful uncomplicated DC cardioversion of atrial fibrillation restoring sinus rhythm using 200 joules x1 shock Right bundle branch block Sleep disorder, unspecified Symptomatic menopausal or female climacteric states Vitamin D deficiency, unspecified Surgical History Surgical History Hx of tonsillectomy (~1972) Family History Family History Mother Family history of congenital heart disease Father Family history of cardiovasc
[2022-04-13 05:44] VITALS: BMI 42.1
--- NOTE | 2022-05-04 13:28 | SLEEP ---
PT RECEIVED RESULTS
== END 2022-03-23 05:23 | disposition home or self-care (01) ==
LOC: ANHCSM 07:20
PROVIDERS: PCP Family Medicine; Visit Provider Physician Assistant
DX: G47.9 Sleep disorder, unspecified (principal)
CPT/HCPCS: 95810

== ENCOUNTER 2022-03-30 00:47 | Day surgery (SDC) | payer MEDICARE, SELFPAY ==
[2022-03-29 12:48] VITALS: BMI 42.1
[2022-03-30] VITALS (9 sets, daily range): BP systolic 91–107; BP diastolic 56–71; PULSE 56–81; RESP 12–20; TEMP 35.8; O2SAT 91–97; BMI 44.4
--- NOTE | 2022-03-30 08:30 | ECG_ITS ---
Measurements Intervals [place] Rate: 90 P: [place]: 0 QRS: 96 QRSD: 164 T: -53 QT: 427 QTc: 524 Interpretive Statements ATRIAL FIBRILLATION RIGHT BUNDLE BRANCH BLOCK BORDERLINE ST-T WAVE ABNORMALITY- INFERIOR LEADS ABNORMAL ECG Electronically Signed On 03-30-2022 10:37:00 CDT by Kelby Quick D.O.
[2022-03-30 09:32] LABS: Anion Gap 8 mmol/L (8-16); Blood Urea Nitrogen 29 mg/dL (7-17); Calcium 9.2 mg/dL (8.4-10.2); Carbon Dioxide 26 mmol/L (22-30); Chloride 105 mmol/L (98-107); Estimated CRCL calculation 64 ml/min; Estimated Glomerular Filt Rate > 60; Glucose 92 mg/dL (65-110); Magnesium 2.2 mg/dL (1.6-2.3); Potassium 4.4 mmol/L (3.4-5.0); Sodium 139 mmol/L (137-145)
--- NOTE | 2022-03-30 10:00 | ECG_ITS ---
Measurements Intervals [place] Rate: 62 P: 59 WI: 246 QRS: 73 QRSD: 170 T: 81 QT: 480 QTc: 491 Interpretive Statements SINUS RHYTHM WITH FIRST DEGREE AV BLOCK RIGHT BUNDLE BRANCH BLOCK MINIMAL Q WAVES- INFERIOR LEADS BASELINE ARTIFACT- V5 ABNORMAL ECG Electronically Signed On 03-30-2022 10:39:27 CDT by Kelby Quick D.O.
--- NOTE | 2022-03-30 10:03 | WPDMODSED ---
Moderate Sedation Note-Pt Data Patient Data Diagnosis: Atrial fibrillation Present Complaint: Atrial fibrillation Procedure to be performed/Plan: Moderate sedation Electrical cardioversion Allergies Allergy/AdvReac Type Severity Reaction Status Date / Time contact metal agent Allergy Severe Swelling Verified 03/04/22 08:40 orange Allergy Severe Fatigued Verified 03/04/22 08:40 Mold (Blue) Cheese AdvReac Unknown THROAT Uncoded 03/04/22 08:40 SWELLING Home Medications Medication Instructions Recorded Confirmed Type calcium carbonate 600 mg-vitamin 1 tablet PO DAILY 12/16/21 03/04/22 History D3 20 mcg (800 unit) chewable tablet (Caltrate 600 plus D) cholecalciferol (vitamin D3) 25 25 mcg PO DAILY 12/16/21 03/04/22 History mcg (1,000 unit) capsule vitamin B complex (B 1 tablet PO DAILY 12/16/21 03/04/22 History Complex-Vitamin B12 tablet) apixaban 5 mg tablet (Eliquis) 5 mg PO Q12HR #60 tabs 12/22/21 03/04/22 Rx furosemide 20 mg tablet 20 mg PO DAILY #30 tabs 12/22/21 03/04/22 Rx sacubitril 24 mg-valsartan 26 mg 0.5 tablet PO BID 02/10/22 03/04/22 History tablet (Entresto) amiodarone 200 mg tablet 400 mg PO DAILY 03/04/22 03/04/22 History eszopiclone 1 mg tablet (Lunesta) 1 mg PO QHS #1 tablet 03/04/22 03/04/22 Rx metoprolol succinate 25 mg 25 mg PO DAILY 03/04/22 03/04/22 History tablet,extended release 24 hr Current Medications: Active Medications Sodium Chloride (Normal Saline Iv) 1,000 mls @ 30 mls/hr IV CONT .Q24H LEE Sedation/Anesthesia: No previous sedation/anesthesia problems (including family history). [facility] Past Medical History Medical History (Updated 03/21/22 @ 13:56 by Elizabeth Schreiber MA) Acute systolic (congestive) heart failure Back fracture Cystocele, midline Elbow fracture Fluid overload Foot fracture Hand fracture Herpes zoster without complication History of cardioversion 01.28.22 Successful uncomplicated DC cardioversion of atrial fibrillation restoring sinus rhythm using 200 joules x1 shock Right bundle branch block Sleep disorder, unspecified Symptomatic menopausal or female climacteric states Vitamin D deficiency, unspecified Surgical History Surgical History (Updated 03/21/22 @ 13:53 by Elizabeth Schreiber MA) Hx of tonsillectomy Family History Family History Mother Family history of congenital heart disease Father Family history of cardiovascular disease Cerebrovascular accident, Onset Age: 47 Grandparent Diabetes mellitus Other Hypertension Social History Social History (Updated 03/04/22 @ 08:43 by Alissa Lemons MA) Social History: Patient lives at home with her and is the primary caregiver for her . Her son and her daughter are her surrogate and she wishes to be a full code at this time. Smoking packs per day: 1 Smoking cigarettes per day: 20.0 Years smoked: 15 Smoking pack-years: 15.00 Smoking status: Former smoker Tobacco type: cigarettes Second hand tobacco smoke exposure: Yes Smoking end date: 09/04/10 Alcohol intake: never Substance use: never Substance use type: does not use Living arrangements: with family Additional occupation/education comments: Teacher Gender identity (if verbalized by the patient): Female Sexual Orientation (if Verbalized by the Patient): Straight or Heterosexual Spiritual care concerns: No Agree to blood products: Yes Mod Sed Physical Exam Physical Exam Pre Procedural Exam: Normal: Appearance, Eyes, Ears, Nose, Neck, Throat, Airway, Lungs, Heart Size, Heart Rate, Neuro Exam, Extremities and Skin and Variation: Heart Rhythm (Irregular irregular) Hours since solid foods: 12 Hours since liquid intake: 12 Mallampati Classification: class II Internal Medicine - PN: Obj Da Vital Signs Vital Signs: Vital Signs - 24 hr 03/30/22 09:05 03/30/22 09:57 Omer
--- NOTE | 2022-03-30 10:15 | WPDCARDVER ---
Cardioversion Cardioversion Date of procedure: 03/30/22 Procedure: 1. Moderate sedation 2. Electrical cardioversion Pre-op diagnosis: Atrial fibrillation Post-op diagnosis: Same Indications: Atrial fibrillation Description of procedure: After discussing the risks, benefits alternatives of procedure the patient be via verbal and written informed consent. Risks discussed included skin irritation or burning, bleeding, pain, infection, shocking into a more problematic heart rhythm, , adverse reaction to anesthesia. Patient has not missed any doses of her anticoagulant. After establishing continuous telemetry monitoring, pulse oxygenation and serial blood pressure assessments, time-out was taken procedure started. Procedure start time: 10:09 a.m. Procedure stop time 10:14 a.m. Complications: None Blood loss: None Medications were administered and patient was monitored by Yandy Davis RN Sedation: A total of 3 mg of Versed 50 mcg of fentanyl given in divided dosages Findings: Atrial fibrillation was confirmed. After adequate sedation, 150 joules of biphasic synchronized energy was used to restore sinus rhythm from atrial fibrillation. Conclusion: 1. Successful roman catholic of sinus rhythm using 150 joules of synchronized biphasic energy 2. Moderate sedation
== END 2022-03-30 12:12 | disposition home or self-care (01) ==
PROVIDERS: Internal Medicine Cardiovascular Disease; PCP Family Medicine; Visit Provider Specialist
PROC: 5A2204Z Restoration of Cardiac Rhythm, Single (ICD-10-PCS; principal; 2022-03-30 10:00)
DX: I48.19 Other persistent atrial fibrillation (principal); I42.0 Dilated cardiomyopathy; I50.22 Chronic systolic (congestive) heart failure; I45.10 Unspecified right bundle-branch block; E55.9 Vitamin D deficiency, unspecified; Z79.01 Long term (current) use of anticoagulants; Z87.891 Personal history of nicotine dependence
CPT/HCPCS: 36415; 80048; 83735; 92960; J2250; J2310; J3010; J7030

== ENCOUNTER 2022-05-12 08:08 | Outpatient (CLI) | payer MEDICARE, SELFPAY ==
--- NOTE | 2022-05-13 09:40 | WPDPFTINT ---
PFT Procedure Performed PFT Procedure Performed Spirometry with Pre/Post Bronchodilator Plethysmography (Lung Vol) Diffusing Cap (DLCO) Flow Vol Loop PFT Interpretation Lung volumes were measured with the body plethysmography method. The diminished expiratory reserve volume is due to obesity. The remaining lung volumes are unremarkable. Spirometry showed normal expiratory flow rates and a normal FEV1 to FVC ratio of 70%. Following administration of a bronchodilator there was no significant increase in the expiratory flow rates. Lung diffusion capacity is within the normal range at 76% predicted. The flow volume loop is unremarkable. Impression: Spirometry, lung volumes, and lung diffusion capacity all within the normal range.
--- NOTE | 2022-05-13 09:42 | WPDSIXMINUTE ---
Six Minute Walk Procedure Procedure Performed Pulmonary Stress Test (6 min walk) Six Minute Walk Six Minute Walk: This 6 minute walk test was carried out with the patient breathing ambient air. The pre walk oxyhemoglobin saturation was 95%. The patient walked over 426 m with no stops during testing. During the walk the oxyhemoglobin saturation remained in the range of 90% or higher. The perceived dyspnea on the Thania scale at baseline was less than 1 and increased to 4 at the end of testing. Impression: No evidence of oxyhemoglobin desaturation on this testing.
== END 2022-05-12 08:09 | disposition home or self-care (01) ==
LOC: ANHPFT 08:09
PROVIDERS: PCP Family Medicine; Visit Provider Physician Assistant
DX: G47.34 Idiopathic sleep related nonobstructive alveolar hypoventilation (principal); R06.09 Other forms of dyspnea
CPT/HCPCS: 94060; 94618; 94726; 94729

== ENCOUNTER 2022-07-27 13:30 | Outpatient (RCR) | payer MEDICARE, SELFPAY ==
[2022-04-19 12:07] VITALS: PULSE 80
== END 2022-07-29 13:40 | disposition home or self-care (01) ==
LOC: ANHCPREHAB 13:30
PROVIDERS: PCP Family Medicine; Visit Provider Nurse Practitioner Adult Health
DX: I50.89 Other heart failure (principal)
CPT/HCPCS: 93798

== ENCOUNTER 2022-08-02 14:21 | Outpatient (CLI) | payer MEDICARE, SELFPAY ==
--- NOTE | ~2022-08-02 | CT_ITS ---
EXAMINATION: CT abdomen wo con DATE: 08/02/2022 15:05 INDICATION: Adrenal gland tumor TECHNIQUE: Computed tomography (CT) of the abdomen and pelvis was performed without intravenous contr ast. The dose-length product was 1107.18 mGy-cm. Automated exposure control and iterative reconstruct ion technique were employed. COMPARISON: CT dated 01/19/2014. FINDINGS: There is dependent atelectasis. Cardiomegaly. No significant pleural or pericardial effusio n. There is a stable 1.3 x 1.1 cm left adrenal nodule measuring 5 Hounsfield units, compatible with b enign adenoma. Stable 1.3 cm right adrenal nodule measuring -11 Hounsfield units, also consistent wit h benign adenoma. The liver, spleen, pancreas, and kidneys are unremarkable. No hydronephrosis or renal stones. Nonobst ructive bowel pattern. No free air or free fluid. Gallbladder is present. No significant vascular abn ormality. No lymphadenopathy. Small hiatal hernia. IMPRESSION: 1. Stable small bilateral adrenal masses compared with 01/19/2014, compatible with benign adenomas. Reviewed, dictated and finalized at location A. HIC DESIGN ASSISTANT IMPRESSION: 1. Stable small bilateral adrenal masses compared with 01/19/2014, compatible wi th benign adenomas.
--- NOTE | ~2022-08-02 | US_ITS ---
US thyroid INDICATION: Nontoxic thyroid nodule TECHNIQUE: Real-time sonographic images of the thyroid gland were obtained. COMPARISON: No prior studies for comparison. FINDINGS: The right thyroid lobe measures 5.4 x 2.3 x 2.4 cm. The left thyroid lobe measures 5.8 x 2 .4 x 2.4 cm. Thyroid echotexture is heterogeneous. In the right lobe there is a solid predominantly h ypoechoic mass which is wider than tall, ill-defined margins and no internal echogenic foci, measurin g 1.8 x 1.6 x 1.5 cm, TR 4. Isthmus measures 1.2 cm. No discrete mass in the left lobe. IMPRESSION: 1. Enlarged thyroid gland with a 1.8 cm right thyroid mass, TR 4. Ultrasound-guided fine-needle aspi ration biopsy recommended. Reviewed, dictated and finalized at location A. JAVASCRIPT ENGINEER IMPRESSION: 1. Enlarged thyroid gland with a 1.8 cm right thyroid mass, TR 4. Ultrasound-g uided fine-needle aspiration biopsy recommended.
== END 2022-08-02 14:22 | disposition home or self-care (01) ==
PROVIDERS: PCP Family Medicine; Visit Provider Family Medicine
DX: D49.7 Neoplasm of unspecified behavior of endocrine glands and other parts of nervous system (principal); E04.1 Nontoxic single thyroid nodule; E27.9 Disorder of adrenal gland, unspecified
CPT/HCPCS: 74150; 76536

== ENCOUNTER 2022-10-25 16:46 | Outpatient (CLI) | payer MEDICARE, SELFPAY ==
--- NOTE | ~2022-10-25 | DEXA_ITS ---
Bone Density Report Name: DARIAN CANTRELL Age: 67 Sex: Female Ethnicity: White Date of : 1955 Indication: postmenopausal; screening for osteoporosis; prior fracture; Referring Provider: SHOAIB WALTER Study: Bone densitometry was performed. Exam Date: October 25, 2022 Accession number: [id number] Bone Density: Region BMD T-score Z-score Classification AP Spine(L1-L4) 1.225 1.6 3.7 Normal Femoral Neck (Left) 0.721 -1.2 0.6 Osteopenia Total Hip (Left) 0.954 0.1 1.6 Normal Femoral Neck (Right) 0.771 -0.7 1.0 Normal Total Hip (Right) 0.992 0.4 1.9 Normal Total Hip Mean 0.973 0.3 1.8 Normal World Health Organization criteria for BMD impression classify patients as: Normal (T-score at or above -1.0), Osteopenia (T-score between -1.0 and -2.5), or Osteoporosis (T-score at or below -2.5). 10-year Fracture Risk: FRAX not reported because: Prior hip or vertebral fracture Clinical Information Provided by Patient: Have had a previous hip or vertebral fracture Has had a low trauma fracture Has used the following medications: Vitamin D, Calcium Patient maximum height was 63 Menopause Age: 49 No regular weight bearing exercise Drinks caffeinated beverages Onset of menses at age 14 Number of children 2 Impression: The patient has low bone mass, based on the Left Femoral Neck T-score. The patient has risk factors, including: previous fracture. Discussion: INCREASED RISK OF FRACTURE DUE TO HISTORY OF FRACTURE. The patient's previous fracture puts the patient at high risk of a future fracture. In untreated patients, the risk of osteoporotic fracture increases approximately two-fold for each 1.0 SD decrease in T-score. Low bone density is not the only risk factor for fracture; also consider factors such as patient's age, frailty or poor health, risk of falling, risk of injury, previous osteoporotic fracture, family history of osteoporosis, cigarette smoking, low body weight, etc. Not everyone with a low trauma fracture has osteoporosis; osteomalacia and other metabolic bone disorders should also be considered. Patients who have osteoporosis should be evaluated for specific diseases and conditions (secondary causes) that may cause or contribute to bone loss and fracture risk. National Osteoporosis Foundation (NOF) recommends pharmacologic intervention for patients with a prior hip or vertebral fracture regardless of BMD T-score. The patient should follow a healthful lifestyle (good nutrition with adequate calcium and vitamin D, and appropriate weight-bearing exercise). Follow-Up: Consider a repeat BMD and Vertebral Fracture Assessment (VFA) exam in 2 years or sooner if medically necessary, to reassess this patient's status. Reported by: HEMAL on 10/25/2022 5:18:00 PM.
--- NOTE | ~2022-10-25 | MM_ITS ---
EXAMINATION: MM screening philippe BI w kary HISTORY: Screening mammogram TECHNIQUE: Craniocaudal and mediolateral oblique 3-D tomosynthesis images were obtained and synthetic 2-D images were generated. CAD analysis was submitted and interpreted. COMPARISON: 04/18/2013 bilateral screening mammogram BREAST PARENCHYMAL COMPOSITION: There are scattered areas of fibroglandular density. FINDINGS: Occasional stable circumscribed masses and occasional benign calcifications. There is no ev idence of suspicious mass, calcification, or architectural distortion to suggest malignancy in either breast. There has been no suspicious interval change. IMPRESSION: 1. No mammographic evidence of malignancy. 2. Recommend routine screening mammography in one year. BI-RADS Category 2: Benign finding(s). Reviewed, dictated and finalized at location A. ESSOR OF ENGINEERING
== END 2022-10-25 16:47 | disposition home or self-care (01) ==
PROVIDERS: PCP Family Medicine; Visit Provider Family Medicine
DX: Z12.31 Encounter for screening mammogram for malignant neoplasm of breast (principal); Z78.0 Asymptomatic menopausal state; M85.852 Other specified disorders of bone density and structure, left thigh
CPT/HCPCS: 77063; 77067; 77080

== ENCOUNTER → 2023-07-20 10:56 | Outpatient (CLI) | payer MEDICARE, SELFPAY ==
--- NOTE | ~2023-07-20 | XR_ITS ---
Lumbosacral Spine: AP and lateral views Clinical History: Pain Findings: The normal lordotic curve is maintained. Mild compression fracture deformity of L3 is prese nt, chronic. There is 8mm anterolisthesis of L3 over L4. There is advanced facet arthropathy througho ut the lumbar spine. There is advanced generative disc narrowing at L5-S1.. The sacroiliac joints ar e normally outlined. Impression: Chronic compression fracture of L3. 8 mm anterolisthesis of L3 over L4. Extensive facet joint arthropathy. Reviewed, dictated and finalized at location M. TYPE TELEGRAPHER Impression: Chronic compression fracture of L3. 8 mm anterolisthesis of L3 over L4. Extensive facet joint arthropathy.
--- NOTE | ~2023-07-20 | XR_ITS ---
Right Shoulder Technique: AP and scapular Y views were obtained. Clinical History: Pain Findings: No fracture or dislocation is seen. Osseous alignment is anatomic. Glenohumeral joint is in tact. There is mild AC joint degenerative change. Soft tissues are unremarkable. Impression: Mild AC joint degenerative change. Reviewed, dictated and finalized at [facility]. D ENGINEER AUDIO CONTROL Impression: Mild AC joint degenerative change.
--- NOTE | ~2023-07-20 | XR_ITS ---
AP and lateral views of the left hip Clinical history: Pain Findings: No acute fracture or dislocation is seen. Osseous alignment is anatomic. The left hip joint and left SI joint are preserved. Soft tissues are unremarkable. Impression: No significant abnormality is seen. Reviewed, dictated and finalized at [facility]. DER BRAKE LINING Impression: No significant abnormality is seen.
== END ==
PROVIDERS: PCP Family Medicine; Visit Provider Physician Assistant
DX: M25.552 Pain in left hip (principal); M54.50 Low back pain, unspecified; M25.511 Pain in right shoulder; M48.56XA Collapsed vertebra, not elsewhere classified, lumbar region, initial encounter for fracture; M47.816 Spondylosis without myelopathy or radiculopathy, lumbar region
CPT/HCPCS: 72100; 73030; 73502

== ENCOUNTER → 2023-07-24 09:48 | Outpatient (CLI) | payer MEDICARE, SELFPAY ==
--- NOTE | ~2023-07-24 | US_ITS ---
EXAMINATION: US thyroid DATE: 07/24/2023 10:06 INDICATION: Nontoxic single thyroid nodule. TECHNIQUE: Multiple ultrasound images of the thyroid were obtained. COMPARISON: Ultrasound 08/02/2022 FINDINGS: The right thyroid lobe measures 5.9 x 2.1 x 2.6 cm. The left thyroid lobe measures 5.0 x 2.0 x 2.4 c m. In the right thyroid lobe, there is a 2.1 cm predominantly solid, isoechoic, wider than tall nodu le with ill-defined margin without echogenic foci (TI-RADS TR3), stable from 08/02/22. In the thyroid isthmus, there is a 12 mm predominantly solid, hypoechoic, wider than tall nodule with smooth margin without echogenic foci (TR4). IMPRESSION: 1. Thyroid nodules. Thyroid ultrasound is recommended in one year. Reviewed, dictated and finalized at location E. [facility] EDUCATION COORDINATOR
== END ==
PROVIDERS: PCP Family Medicine; Visit Provider Physician Assistant
DX: E04.2 Nontoxic multinodular goiter (principal)
CPT/HCPCS: 76536

== ENCOUNTER 2024-01-01 13:14 | Outpatient (CLI) | payer MEDICARE, SELFPAY ==
--- NOTE | ~2024-01-01 | MM_ITS ---
EXAMINATION: MM diagnostic philippe BI w kary HISTORY: Reported abnormal PET scan of right breast TECHNIQUE: ML, MLO and CC 3-D tomosynthesis images of both breasts were performed and synthetic 2-D i mages were generated. CAD analysis was submitted and interpreted. COMPARISON: 10/25/2022, 04/18/2013 bilateral screening mammogram examinations BREAST PARENCHYMAL COMPOSITION: There are scattered areas of fibroglandular density. FINDINGS: There is a circumscribed low density opacity in the posterior inner mid to upper right breast, dimini shed in size since 04/18/2013. Stable circumscribed 6.5 mm posterior upper outer left breast circumscribed opacity since 2012. Stable or slightly smaller approximately 2.5 mm circumscribed opacity in the lower outer left breast at mid depth. No interval suspicious mass, architectural distortion, malignant calcification, skin thickening or re traction or significant new or developing density since 04/18/2013 is detected. IMPRESSION: 1. Stable or diminished size of the benign appearing circumscribed opacities of each breast; no mammo graphic evidence of malignancy 2. No mammographic correlate for a reported 1.7 cm right breast lesion is evident. Recommend review o f the PET/CT scan for correlation with the mammogram. The PET CT examination is not available here. BI-RADS Category 2: Benign finding(s). Reviewed, dictated and finalized at location A. IMPRESSION: 1. Stable or diminished size of the benign appearing circumscribed opacities of each breast; no mammographic evidence of malignancy 2. No mammographic correlate for a reported 1.7 cm right breast lesion is evide nt. Recommend review of the PET/CT scan for correlation with the mammogram. The PET CT examination is not available here. BI-RADS Category 2: Benign finding(s).
== END 2024-01-01 13:15 | disposition home or self-care (01) ==
PROVIDERS: PCP Family Medicine; Visit Provider Nurse Practitioner Family
DX: N63.12 Unspecified lump in the right breast, upper inner quadrant (principal); R94.8 Abnormal results of function studies of other organs and systems; R92.8 Other abnormal and inconclusive findings on diagnostic imaging of breast
CPT/HCPCS: 77062; 77066; G0279

== ENCOUNTER 2024-07-12 20:33 | Emergency (ER) | payer MEDICARE, SELFPAY ==
[2024-07-12] VITALS (14 sets, daily range): BP systolic 115–154; BP diastolic 75–104; PULSE 67–80; RESP 17–20; TEMP 37.1; O2SAT 88–100
--- NOTE | ~2024-07-12 | XR_ITS ---
HISTORY: Right arm pain COMPARISON: None TECHNIQUE: 3 views of the right humerus FINDINGS: Acute comminuted fracture of the right humeral neck is identified with overlap of the fracture fragme nts Significant soft tissue deformity is also present. The distal humerus is unremarkable. IMPRESSION: Comminuted right humeral neck fracture, as detailed above. Reviewed, dictated and finalized at location A. EGNATOR ELECTROLYTIC CAPACITORS
--- NOTE | ~2024-07-12 | XR_ITS ---
CHEST RADIOGRAPH CLINICAL HISTORY: Syncope . COMPARISON: 12/16/2021 TECHNIQUE: Single portable view of the chest. FINDINGS The cardiomediastinal silhouette is enlarged, unchanged. The lungs are clear. Visualized osseous structures and soft tissues are unremarkable. IMPRESSION: No focal infiltrate or effusion. Reviewed, dictated and finalized at location A. ITURE REPAIRER
--- NOTE | ~2024-07-12 | CT_ITS ---
EXAMINATION: CT brain wo con DATE: 07/12/2024 21:08 INDICATION: Head injury. TECHNIQUE: Computed tomography (CT) of the head was performed without intravenous contrast. The mA wa s adjusted according to patient size. Iterative reconstruction technique was employed. The dose-lengt h product was 681.00 mGy-cm. COMPARISON: None FINDINGS: There are scattered areas of low attenuation in the cerebral white matter. There is no intr acranial hemorrhage, acute infarction, or abnormal intracranial mass lesion. The ventricles are barrington l in size. The orbits are normal. There is mild mucosal thickening in the paranasal sinuses. The mast oid air cells are normal. There is right frontal scalp soft tissue swelling. IMPRESSION: 1. Extensive nonspecific cerebral white matter disease, which likely represents chronic small vessel ischemic disease. Reviewed, dictated and finalized at location A. EATION PROGRAM COORDINATOR
--- NOTE | ~2024-07-12 | XR_ITS ---
HISTORY: Right shoulder pain COMPARISON: None TECHNIQUE: 2 views of the right shoulder were performed FINDINGS: Acute comminuted fracture of the neck of the right humerus is identified with overlap of the fracture fragments. Inferior displacement of the humeral head in relation to the glenoid fossa. Significant narrowing of the acromioclavicular joint is also noted. The adjacent lung is unremarkable. No acute rib fracture is present. IMPRESSION: Comminuted acute right humeral neck fracture, as detailed above. Reviewed, dictated and finalized at location A. EGNATION OPERATOR
--- NOTE | 2024-07-12 20:45 | PC.NURSE ---
Patient stated she want to wait right now on the morphine, they just gave me fentanyl, I don't want to be drugged out. Patient informed to hit call button if she needs pain medicine, that it is ordered when she needs it. Patient verbalized understanding. Patient now being taken to imaging via stretcher at this time.
[2024-07-12] MEDS: MORPHINE SULFATE (*CRX) 4 MG/ML INJ IV PUSH (21:21)
--- NOTE | 2024-07-12 22:07 | ED_ITS ---
HPI - Fall General Chief Complaint: Fall Stated Complaint: fall Time Seen by Provider: 07/12/24 20:34 Source: patient and EMS Mode of arrival: EMS Limitations: no limitations History of Present Illness HPI Narrative: This is a 68-year-old female, with history of AFib on Eliquis, brought in by EMS after a fall. The patient states she was on a motorized scooter in the yard and fell off when it hit a divot in the ground. She states she hit her head and fell on her right shoulder. She complains of 9/10 right shoulder pain. She was given a total of 100 mcg of fentanyl EN route. She denies loss of consciousness or focal weakness / numbness. She has no other complaints at this time. Related Data Home Medications Medication Instructions Recorded Confirmed calcium 600 mg (as carbonate)-vit 1 tablet PO DAILY 12/16/21 04/30/24 D3 20 mcg (800 unit) chewable tablet (Caltrate plus D) cholecalciferol (vitamin D3) 25 25 mcg PO DAILY 12/16/21 04/30/24 mcg (1,000 unit) capsule vitamin B complex (B 1 tablet PO DAILY 12/16/21 04/30/24 Complex-Vitamin B12 tablet) metoprolol succinate 25 mg 25 mg PO DAILY 03/04/22 04/30/24 tablet,extended release 24 hr sacubitril 49 mg-valsartan 51 mg 1 tablet PO BID 05/02/22 04/30/24 tablet (Entresto) magnesium oxide 250 mg PO DAILY 11/16/23 04/30/24 Allergies Allergy/AdvReac Type Severity Reaction Status Date / Time contact metal agent Allergy Severe Swelling Verified 07/12/24 20:41 orange Allergy Severe Fatigued Verified 07/12/24 20:41 amiodarone AdvReac Intermediate abnormal Verified 07/12/24 20:41 thyroid function Mold (Blue) Cheese AdvReac Unknown THROAT Uncoded 04/30/24 13:31 SWELLING Review of Systems Review of Systems: All systems reviewed & are unremarkable except as noted in HPI and below PMFSH Past Medical History Medical History Abscess of left elbow Acute systolic (congestive) heart failure Back fracture Cystocele, midline Elbow fracture Elbow pain, left Fluid overload Foot fracture Hand fracture Herpes zoster without complication History of cardioversion 5..22 Successful uncomplicated DC cardioversion of atrial fibrillation restoring sinus rhythm using 200 joules x1 shock Olecranon bursitis, left elbow Right bundle branch block Sleep disturbances Symptomatic menopausal or female climacteric states Tendonitis of shoulder, right Vitamin D deficiency, unspecified Surgical History Surgical History Hx of tonsillectomy (~1972) Family History Family History Mother Family history of congenital heart disease Hypertension Family history of cardiovascular disease Father Family history of cardiovascular disease Cerebrovascular accident, Onset Age: 47 Hypertension Grandparent Diabetes mellitus Sibling Hypertension Family history of cardiovascular disease Diabetes mellitus Emphysema lung Social History Social History Social History: Patient lives at home with her and is the primary caregiver for her . Her son and her daughter are her surrogate and she wishes to be a full code at this time. Smoking packs per day: 0.5 Smoking cigarettes per day: 10.0 Years smoked: 20 Smoking pack-years: 10.00 Smoking status: Former smoker Tobacco type: cigarettes Second hand tobacco smoke exposure: Yes Smoking end date: 09/04/10 Additional smoking assessment comments: smoke off and on, quit several times Alcohol intake: never Substance use: never Substance use type: does not use Do You Feel Safe in your Home?: Yes Lack of Transportation: No Lack of Food: Never True Current Housing: I Have Housing Concerned About Future Housing: No Difficulty Paying Gas/Electric Bills: No Difficulty Paying for Meds: No Currently Unemployed: No Education: Master's Degree or Higher Difficulty w/ Childcare or Family Care: No Living arrangements: with family Occupation/Education: retired Additional occupation/education comments: Teacher Gender identity (if verbalized by the patient): Female Sexual Orientation (if Verbalized by the Patient): Straight or Heterosexual Spiritual care concerns: No Agree to blood products: Yes Exam Narrative: GENERAL: Well-developed, well-nourished, and in no acute distress. HEAD: Normocephalic, The hematoma is noted over the right frontal forehead with superficial abrasion EYES: PERRLA and EOMI. ENT: Nares clear, no rhinorrhea or epistaxis. Mucous membranes moist. Oropharynx without tonsillar hypertrophy exudate or other lesions. NECK: Supple. No midline spine tenderness to palpation, no step-off or crepitus CHEST: Clear to auscultation. No respiratory distress. No wheezes rales or rhonchi HEART: Regular rate and rhythm. No murmur heard. Normal peripheral pulses. ABDOMEN: Soft, nontender, nondistended, normal active bowel sounds. BACK: No midline spine tenderness to palpation, no step-off or crepitus EXTREMITIES: the right arm is in a sling. It is tender to palpation at the lateral aspect of the arm, just distal to the shoulder. Range of motion of the right arm limited by pain. Normal range of motion Of all other extremities. No edema. SKIN: Warm, dry, no rash. NEURO: Alert and oriented x3. No focal deficit. Moving all 4 limbs spontaneously PSYCH: Normal mood and affect. Course Course Emergency Course: 23:15 - STAT Rad interpretation of CT head demonstrates no intracranial hemorrhage. No significant mass or midline shift. No skull fracture. 03:53 - On initial attempt to discharge the patient, she lost consciousness while being placed and a sling for her right arm. I suspected vasovagal syncope at that time, however the patient lost consciousness again while sitting forward. Multiple attempts were required by nursing staff to obtain line and draw labs leading to delay. CBC demonstrates baseline anemia with hemoglobin of 11 but is otherwise unremarkable. Chemistries demonstrate mild hypokalemia with potassium of 3.1 and decreased bicarb of 18 as well as hypocalcemia of 6.9. The patient was given IV fluids and IV calcium with improvement. I suspect vasovagal syncope. the patient was able to ambulate without difficulty after intervention. Will discharge. Vital Signs Vital signs: Vital Signs Temperature 98.8 F 07/12/24 20:34 Pulse Rate 78 07/12/24 20:34 Respiratory Rate 20 07/12/24 20:34 Blood Pressure 154/81 H 07/12/24 20:34 Pulse Oximetry 100 07/12/24 20:34 Oxygen Delivery Room Air 07/12/24 20:34 Temperature 98.8 F 07/12/24 20:34 Pulse Rate 70 07/13/24 03:46 Respiratory Rate 17 07/13/24 03:46 Blood Pressure 146/61 H 07/13/24 03:46 Pulse Oximetry 94 07/13/24 03:46 Oxygen Delivery Room Air 07/12/24 20:34 MDM - Fall MDM Narrative Medical decision making narrative: Plan: Imaging, pain control, reassess Differential Diagnosis Differential diagnosis: Likely concussion without loss of consciousness and other ( skull fracture, intracranial hemorrhage, humerus fracture, dislocation, other) Lab Data 07/13/24 01:21 07/13/24 01:21 Labs: Lab Results 07/13/24 Range/Units 01:21 WBC 7.7 (4.5-10.0) K/mm3 RBC 3.65 L (4.2-5.4) M/mm3 Hgb 11.0 L (12.0-15.0) g/dL Hct 37.0 (37.0-47.0) % MCV 101.4 H (80-100) fl MCH 30.1 (26-34) pg MCHC 29.7 L (32-36) g/dl RDW 13.1 (11.5-14.5) % Plt Count 154 (150-375) k/mm3 MPV 9.5 (7.4-10.4) fl Immature Gran % (Auto) 0.3 (0-0.5) % Neut % (Auto) 80.2 H (45.5-73.1) % Lymph % (Auto) 10.8 L (18.3-44.2) % Hodgeman % (Auto) 7.5 (2.6-8.5) % Eos % (Auto) 0.4 (0-4.4) % Baso % (Auto) 0.8 (0.2-1.2) % Lymph # (Auto) 0.83 L (0.9-3.2) K/mm3 [place]geman # (Auto) 0.6 (0.1-0.6) K/mm3 Eos # (Auto) 0.0 (0-0.3) K/mm3 Baso # (Auto) 0.1 (0.0-0.1) K/mm3 Abs Immat Gran (auto) 0.02 (0.00-0.031) K/mm3 Absolute Neuts (auto) 6.2 (1.3-6.7) K/mm3 Absolute Nucleated RBC 0.000 (0.0-0.012) K/mm3 Nucleated RBC % 0.0 (0.0-0.2) % % Immature Plt Fraction 1.8 (0.9-11.2) % Sodium 139 (137-145) mmol/L Potassium 3.1 L (3.4-5.0) mmol/L Chloride 118 H (98-107) mmol/L Carbon Dioxide 18 L (22-30) mmol/L Anion Gap 3 L (4-12) mmol/L BUN 18 H D (7-17) mg/dL Creatinine 0.50 L (0.7-1.0) mg/dL Estim Creat Clear Calc 101 ml/min Estimated GFR > 60 (59 - ) Glucose 96 (65-110) mg/dL Calcium 6.9 L (8.4-10.2) mg/dL Total Bilirubin 0.5 (0.2-1.3) mg/dL AST 31 (14-36) U/L ALT 17 (6-35) U/L Alkaline Phosphatase 72 (38-126) U/L Total Protein 6.0 L (6.3-8.2) g/dL Albumin 3.0 L (3.5-5.1) g/dL Discharge Plan Discharge Clinical Impression: Fracture of proximal end of humerus Qualifiers: Encounter type: initial encounter Fracture type: closed Fracture morphology: other fracture Fracture alignment: displaced Laterality: right Qualified Code(s): S42.291A - Other displaced fracture of upper end of right humerus, initial encounter for closed fracture Hematoma of frontal scalp Qualifiers: Encounter type: initial encounter Qualified Code(s): S00.03XA - Contusion of scalp, initial encounter Syncope Qualifiers: Syncope type: vasovagal syncope Qualified Code(s): R55 - Syncope and collapse Patient Disposition: Home, Self-Care Condition: Stable Instructions: Antibiotic Form, Arm Fracture in Adults (ED) Additional Instructions: You were seen in the emergency department. an x-ray of the arm and shoulder showed a fracture of the humerus without dislocation. I recommend pain medications and follow-up with an orthopedic surgeon. a CT scan of the head was not concerning for a skull fracture or bleeding in the brain. If you develop persistent vomiting, weakness/ numbness, loss of consciousness, the arm appears blue/cold, or if you have other emergent concerns for life, limb, or eyesight, return to the emergency department. Patient Language: Kinyarwanda Prescriptions: No Action Eliquis 5 mg tablet 5 mg PO Q12HR Qty: 60 0RF furosemide 20 mg tablet 20 mg PO DAILY Qty: 30 0RF Caltrate 600 plus D 600 mg-20 mcg (800 unit) tablet,chewable 1 tablet PO DAILY vitamin B complex [B Complex-Vitamin B12] Tablet 1 tablet PO DAILY cholecalciferol (vitamin D3) 25 mcg (1,000 unit) capsule 25 mcg PO DAILY metoprolol succinate 25 mg tablet extended release 24 hr 25 mg PO DAILY magnesium oxide 250 mg magnesium tablet 250 mg PO DAILY Entresto 49-51 mg Tablet 1 tablet PO BID atorvastatin 20 mg tablet 20 mg PO QHS Qty: 90 3RF Follow-up/Referrals: Jose R Partida MD [Physician] - 1 Week Kyleigh Read MD [Primary Care Provider] - 2 Weeks Time of Disposition: 23:18
--- NOTE | 2024-07-12 23:20 | PC.NURSE ---
Patient was getting sling placed on right arm by phlebotomy tech, and patient had syncopal episode that was witnessed. ERP notified, no new orders. Patient had vasovagal sycnopal episode. Patient given snack upon request. Patient a/ox4.
[2024-07-12] MEDS: oxyCODONE/ACETAMINOPHEN (*CRX) 5-325 MG TABLET 1 TABLET PO (23:26)
--- NOTE | 2024-07-12 23:47 | PC.NURSE ---
RN went to go discharge pt when family member mentioned pt had just passed out from her dose of oxycodone. Dr. Resendez notified and verbally states for this Rn to get pt up and moving and see how she feels.This RN went back into room had pt sit up very slowly. Pt states she felt fine and kept belching. Rn asked if she felt like she was going to vomit pt denies N/V at this time. Pt then proceeds to tell RN that she is going to pass out. RN sat pt down on bed and called seasonal tax preparer to have Dr. resendez come into room. Dr. Resendez now present at bedside. This RN explained to Dr. resendez what had happened and he had helped pull pt back up into bed at this time.
[2024-07-12] MEDS: SODIUM CHLORIDE 0.9% IV 1,000 ML 999 ML IV CONT (23:56)
[2024-07-13] VITALS (18 sets, daily range): BP systolic 119–146; BP diastolic 61–73; PULSE 66–84; RESP 16–21; O2SAT 91–97
--- NOTE | 2024-07-13 00:03 | ECG_ITS ---
Test Date: 2024-07-13 00:03:17 Measurements Intervals [place] Rate: 70 P: 53 FL: 227 QRS: 43 QRSD: 166 T: 66 QT: 438 QTc: 475 Interpretive Statements SINUS RHYTHM WITH FIRST DEGREE AV BLOCK RIGHT BUNDLE BRANCH BLOCK CONSIDER INFERIOR INFARCT, AGE INDETERMINATE BASELINE ARTIFACT- I, III, V4 ABNORMAL ECG No previous ECG available for comparison Electronically Signed On 07-13-2024 06:56:51 ENVIRONMENTAL STUDIES PROFESSOR by Kelby Quick D.O.
--- NOTE | 2024-07-13 01:08 | PC.NURSE ---
Patient is tough stick, liliana RNs and holter scanning technician attempted, labs were rejected and now need redrawn. Phlebotomy called.
[2024-07-13 01:37] LABS: Basophils Absolute Auto 0.1 K/mm3 (0.0-0.1); Basophils Percent Auto 0.8 % (0.2-1.2); Eosinophils Percent Auto 0.4 % (0-4.4); Immature Granulocyte Absolute 0.02 K/mm3 (0.00-0.031); Immature Granulocyte Percent A 0.3 % (0-0.5); Immature Platelet Fraction Pct 1.8 % (0.9-11.2); Lymphocytes Absolute Auto 0.83 K/mm3 (0.9-3.2); Lymphocytes Percent Auto 10.8 % (18.3-44.2); Mean Corpuscular HGB Conc 29.7 g/dl (32-36); Mean Corpuscular Hemoglobin 30.1 pg (26-34); Mean Corpuscular Volume 101.4 fl (80-100); Mean Platelet Volume 9.5 fl (7.4-10.4); Monocytes Absolute Auto 0.6 K/mm3 (0.1-0.6); Monocytes Percent Auto 7.5 % (2.6-8.5); Neutrophils Absolute Auto 6.2 K/mm3 (1.3-6.7); Neutrophils Percent Auto 80.2 % (45.5-73.1); Platelet Count Result 154 k/mm3 (150-375); Red Blood Count 3.65 M/mm3 (4.2-5.4); Red Cell Distribution Width 13.1 % (11.5-14.5); White Blood Count 7.7 K/mm3 (4.5-10.0)
[2024-07-13 01:47] LABS: Alanine Aminotransferase 17 U/L (6-35); Alkaline Phosphatase 72 U/L (38-126); Anion Gap 3 mmol/L (4-12); Aspartate Amino Transferase 31 U/L (14-36); Bilirubin,Total 0.5 mg/dL (0.2-1.3); Blood Urea Nitrogen 18 mg/dL (7-17); Calcium 6.9 mg/dL (8.4-10.2); Carbon Dioxide 18 mmol/L (22-30); Chloride 118 mmol/L (98-107); Estimated CRCL calculation 101 ml/min; Estimated Glomerular Filt Rate > 60; Glucose 96 mg/dL (65-110); Potassium 3.1 mmol/L (3.4-5.0); Sodium 139 mmol/L (137-145)
[2024-07-13] MEDS: CALCIUM GLUCONATE 1,000 MG/10 ML VIAL 1000 MG IV PUSH (02:07)
--- NOTE | 2024-07-13 03:49 | PC.NURSE ---
Patient able to stand and move positions with no assistance. Patient states she feels better and pain is more tolerable. Patient states she feels comfortable going home. Patient denies any lightheadedness with position change. ERP notified.
== END 2024-07-13 04:18 | disposition home or self-care (01) ==
PROVIDERS: Emergency Provider Preventive Medicine Aerospace Medicine; PCP Family Medicine
DX: S42.291A Other displaced fracture of upper end of right humerus, initial encounter for closed fracture (principal); S00.03XA Contusion of scalp, initial encounter; R55 Syncope and collapse; V29.99XA Rider (driver) (passenger) of other motorcycle injured in unspecified traffic accident, initial encounter; I48.91 Unspecified atrial fibrillation; Z79.01 Long term (current) use of anticoagulants; E55.9 Vitamin D deficiency, unspecified; Z87.891 Personal history of nicotine dependence
CPT/HCPCS: 36415; 70450; 71045; 73030; 73060; 80053; 85025; 85055; 93005; 96361; 96374; 96375; 99284; A4565; A9270; J0612; J2270; J7030

== ENCOUNTER 2024-08-26 08:17 | Outpatient (CLI) | payer MEDICARE, SELFPAY ==
--- NOTE | ~2024-08-26 | US_ITS ---
EXAMINATION: US thyroid DATE: 08/26/2024 08:34 INDICATION: Thyroid nodule. TECHNIQUE: Multiple ultrasound images of the thyroid were obtained. COMPARISON: Ultrasound 07/24/2023, 08/02/2022 FINDINGS: The right thyroid lobe measures 5.1 x 2.1 x 2.0 cm. The left thyroid lobe measures 4.3 x 1.9 x 1.9 c m. In the right thyroid lobe, there is a 14 mm predominantly solid, hypoechoic, wider than tall nodu le with ill-defined margin and punctate echogenic foci (TI-RADS TR5). In the thyroid isthmus, there i s a 13 mm solid, isoechoic, wider than tall nodule with ill-defined margin and punctate echogenic foc i (TR4), stable in size from 07/24/23 and not visualized on 08/02/22. IMPRESSION: 1. Thyroid nodules. Ultrasound-guided fine-needle aspiration of the 14 mm right thyroid nodule is rec ommended. Reviewed, dictated and finalized at location [] LEVELER IMPRESSION: 1. Thyroid nodules. Ultrasound-guided fine-needle aspiration of the 14 mm right thyroid nodule is recommended.
== END 2024-08-26 08:18 | disposition home or self-care (01) ==
LOC: GOSHIMG 08:18
PROVIDERS: PCP Family Medicine; Visit Provider Family Medicine
DX: E04.2 Nontoxic multinodular goiter (principal)
CPT/HCPCS: 76536

== ENCOUNTER 2024-10-08 12:20 | Outpatient (CLI) | payer MEDICARE, SELFPAY ==
--- NOTE | ~2024-10-08 | US_ITS ---
EXAMINATION: US FNA w image guidance DATE: 10/08/2024 13:22 INDICATION: Nontoxic single thyroid nodule. TECHNIQUE: The procedure and its benefits and risks were discussed with the patient. Risks specifically discusse d included bleeding. The patient verbalized understanding of the risks and agreed to proceed. The nec k was prepped and draped in the usual sterile manner. 1% lidocaine was used for local anesthesia. 8 passes were made with a 25G needle into the lesion under ultrasound guidance. There were no immedia te complications. FINDINGS: Grayscale ultrasound images demonstrate needles advanced into a 14 mm nodule in right thyroid lobe fo r biopsy. IMPRESSION: 1. Ultrasound-guided fine needle aspiration of a right thyroid nodule. Reviewed, dictated and finalized at location A. RUMENT REPAIR SPECIALIST
--- OUTSIDE RECORDS SUMMARY | 2024-10-08 12:26 | XMS_ITS | Encounter Summary ---
Author Organization [facility] Healthcare Address [address] [place] [address] Care Team Providers Care Canvas Shrinker Name Role Phone Kyleigh Read MD Primary Care Provider + Encounter Details Date Type Department Care Team (Late st Contact Info) Description 10/07/2024 Telephone [facility] Medical Group Cardiology [address] [facility] [address] [facility] [address] [place] [address] Debra Cancino NP [address] [facility] [address] [place] [address] Social History Tobacco Use Types Packs/Day Years Used Date Smoking Tobacco: Former Cigarettes 0.3 35 1 975 - 2010 Smokeless Tobacco: Never AUDIT-C Answer Date Recorded Q1: How often do you have a drink containing alcohol? Never 01/25/2023 Q2: How many drinks containi ng alcohol do you have on a typical day when you are drinking? Patient does not drink Q3: How often do you have si x or more drinks on one occasion? Never 01/25/2023 Personal Safety Answer Date Recorded Have you ever been in or are you currently in a harmful physical or emotional relationship or is someone making you feel afraid or unsafe? Denies 03/06/2023 Comments No Sex and Gender Information Value Date Recorded Sex Assigned at Not on file Legal Sex Female 12:40 PM LABORATORY MECHANICAL TECHNICIAN Gender Identity Female 01/25/2022 10:56 AM CDT Sexual Orientation Not on file documented as of this encounter Miscellaneous Notes * Addendum Note - Roxana Donovan RN - 10/07/2024 10:02 AM CSTAddended by: ROXANA DONOVAN on: 10/07/2024 10:02 AM Modules accepted: Orders RATORY MECHANICAL TECHNICIAN * Telephone Encounter - Roxana Donovan RN - 10/07/2024 10:01 AM LABORATORY MECHANICAL TECHNICIAN LM on VM reviewing message from CT and sent lab orders to [employer]. Advised pt to callback with any questions or concerns. RATORY MECHANICAL TECHNICIAN * Telephone Encounter - Debra Cancino NP - 10/07/2024 9:57 AM LABORATORY MECHANICAL TECHNICIAN I am glad to hear that. I would like her to continue the same schedule with furosemide 20 mg b.i.d.and potassium chloride 20 mEq once daily and recheck a BMP in 1 month again. Thank you. RATORY MECHANICAL TECHNICIAN * Telephone Encounter - Roxana Donovan RN - 10/07/2024 9:44 AM LABORATORY MECHANICAL TECHNICIAN Spoke with pt, reviewed message from CT and she verbalized understanding. Pt has lost 8 lbs and theswelling has gone down but is not completely gone. She said her legs are definitely not as tight asthey once were. Pt said she also cut out crackers from her diet so she hopes that will also help inthe future. Pt wanted me to let you know that she is transitioning back to sleeping in her bed and o nly in the recliner when her shoulders are hurting her and she also mentioned that she feels like spacing out the water pills has also helped instead of just taking once a day. Will forward to CT. Please advise, thank you! RATORY MECHANICAL TECHNICIAN * Telephone Encounter - Roxana Donovan RN - 10/07/2024 8:48 AM LABORATORY MECHANICAL TECHNICIAN ----- Message from Debra Cancino NP sent at 10/07/2024 8:35 AM LABORATORY MECHANICAL TECHNICIAN ----- Please call her to let her know I got the results of her blood test from Monday. Result is normal. When I saw her in the office I had her increase furosemide to 20 mg b.i.d. and add potassium chloride 20 mEq once daily with a meal. Please ask her how she is doing in regards to change in weight and change in leg swelling and then we will determine what to do with diuretics at that point. Thank you. LM on VM reviewing message from CT and requested callback to discuss her message. RATORY MECHANICAL TECHNICIAN RATORY MECHANICAL TECHNICIAN documented in this encounter Plan of Treatment Scheduled Orders Name Type Priority Associated Diagnoses Orde r Schedule Basic metabolic panel Lab Routine Chronic systolic congestive heart failure (CMS/HCC) (HCC) Expected: 10/10/2024, Expires: 10/07/2025 documented as of this encounter Visit Diagnoses Diagnosis Chronic systolic congestive heart failure (CMS/HCC) (HCC)- Primary documented in this encounter Care Teams Canvas Shrinker Relationship Specialty Start Date End Date Kyleigh Read MD PCP - General Family Medicine 12/17/21 documented as of this encounter
--- OUTSIDE RECORDS SUMMARY | 2024-10-08 12:26 | XMS_ITS | Referral Summary ---
Author Organization [facility] [address] [facility] [address] Address [address] [place] [address] Care Team Providers Care Hazmat Truck Driver Name Role Phone Kyleigh Read MD Primary Care Provider + Encounters Date Type Department Care Team Description 10/07/2024 Telephone [facility] Cardiology [address] [place] [address] Debra Cancino NP 09/30/2024 9:40 AM [facility] - 09/30/2024 11:59 PM [facility] Hospital Encounter [facility] [address] [place] [address] Ling Goodwin MD Other closed displaced fracture of proximal end of right humerus, initial encounter Discharge Disposition: Discharge to home or self care 09/30/2024 10:40 AM [facility] Office Visit [facility] Orthopaedic Surgery [address] [facility] Advanced Medicine 6th [place] [address] [place] [address] Ling Goodwin MD Other closed displaced fracture of proximal end of right humerus, initial encounter (Primary Dx) 09/27/2024 8:30 AM [facility] Office Visit [facility] Cardiology [address] [place] [address] Debra Cancino NP Chronic systolic congestive heart failure (CMS/HCC) (HCC); Edema, lower extremity 09/13/2024 Telephone [facility] Cardiology [address] [place] [address] Mac Acosta MD 09/12/2024 10:30 AM [facility] Office Visit [facility] Cardiology [address] [facility] Office Building [address] [place] [address] Rohit Workman MD Atrial fibrillation and flutter (HCC) [I48.91, I48.92] (Primary Dx) 08/30/2024 8:43 AM [facility] - 08/30/2024 11:59 PM [facility] Hospital Encounter [facility] ([facility]) [address] [place] [address] Discharge Disposition: Discharge to home or self care 08/30/2024 8:43 AM [facility] - 08/30/2024 11:59 PM [facility] Hospital Encounter [facility] ([facility]) [address] [place] [address] Cardiac sarcoidosis Discharge Disposition: Discharge to home or self care 08/30/2024 2:00 PM [facility] Office Visit [facility] Pulmonary [address] [place] [address] Advanced Medicine 8th [place] [address] [place] [address] Florentino Partida MD Nonischemic cardiomyopathy (CMS/HCC) (HCC) (Primary Dx); Atrial fibrillation and flutter (HCC) 08/21/2024 10:40 AM [facility] - 08/21/2024 11:59 PM [facility] Hospital Encounter [facility] [address] [place] [address] Ling Goodwin MD Other closed displaced fracture of proximal end of right humerus, initial encounter Discharge Disposition: Discharge to home or self care 08/21/2024 11:40 AM [facility] Office Visit [facility] Orthopaedic Surgery [address] [place] [address] Advanced Medicine 6th [place] [address] [place] [address] Ling Goodwin MD Other closed displaced fracture of proximal end of right humerus, initial encounter (Primary Dx) 07/24/2024 10:25 AM [facility] Office Visit [facility] Orthopaedic Surgery [address] [place] [address] Medicine 6th [place] [address] [place] [address] Ling Goodwin MD Other closed displaced fracture of proximal end of right humerus, initial encounter (Primary Dx) 07/18/2024 9:05 PM [facility] - 07/18/2024 11:59 PM [facility] Hospital Encounter [facility] [address] [place] [address] Discharge Disposition: Discharge to home or self care 07/18/2024 7:47 PM [facility] - 07/18/2024 11:59 PM [facility] Hospital Encounter [facility] [address] [place] [address] Discharge Disposition: Discharge to home or self care from Last 3 Months Allergies Active Allergy Reactions Criticality Noted Date Comments Amiodarone Other (See comments) Medium 08/30/2024 Thyroid Toxicity Cheese - Blue Other (See comments) Low 04/07/2022 Neck gland swelling and bloating Medications calcium carbonate/vitam in D3 (CALTRATE 600 PLUS D ORAL) Take 1 tablet by mouth nightly Active vitamin b complex tabletIndicatio ns:Vitamin Deficiency Prevention Take 1 tablet by mouth nightly Active cholecalciferol (VITAMIN D-3) 1,000 unit capsule Take 1 capsule (1,000 Units total) by mouth nightly Active oxygenIndicatio ns:Dyspnea Administer 2 L/min into each nostril nightly Active atorvastatin (LIPITOR) 20 mg tabletIndicatio ns:hyperlipidem ia Take 1 tablet (20 mg total) by mouth nightly Active magnesium oxide (MAG-OX) 250 mg (150.8 mg elemental) tabletIndicatio ns:hypomagnesem ia Take 1 tablet (250 mg total) by mouth daily Active Eliquis 5 mg tabletIndicatio ns:Atrial fibrillation, unspecified type (HCC) TAKE 1 TABLET BY MOUTH EVERY 12 HOURS 60 tablet 11 12/18/19 24 Active metoprolol XL (TOPROL-XL) 25 mg extended release tabletIndicatio ns:Atrial fibrillation, unspecified type (HCC) TAKE 1 TABLET BY MOUTH EVERY DAY IN THE MORNING 90 tablet 3 01/08/20 24 Active Entresto 49-51 mg tabletIndicatio ns:Chronic systolic congestive heart failure (CMS/HCC) (HCC) TAKE 1 TABLET BY MOUTH TWICE A DAY 60 tablet 11 03/11/20 24 Active azithromycin (ZITHROMAX) 250 mg tablet TAKE 2 TABLETS BY MOUTH TODAY, THEN TAKE 1 TABLET DAILY FOR 4 DAYS DIRECTED 08/18/20 Active predniSONE (DELTASONE) 20 mg tablet TAKE 3 TABLETS ORAL ROUTE ONCE DAILY FOR 5 DAYS 08/18/20 24 Active potassium chloride ER (KLOR-CON) 20 mEq CR tabletIndicatio ns:Chronic systolic congestive heart failure (CMS/HCC) (HCC) Take 1 tablet (20 mEq total) by mouth daily With a meal 30 tablet 1 09/27/19 25 Active furosemide (LASIX) 20 mg tabletIndicatio ns:Chronic systolic congestive heart failure (CMS/HCC) (HCC) Take 1 tablet (20 mg total) by mouth 2 (two) times a day 60 tablet 1 09/27/19 25 Active furosemide (LASIX) 20 mg tabletIndicatio ns:Chronic systolic congestive heart failure (CMS/HCC) (HCC) Take 1 tablet (20 mg total) by mouth daily 90 tablet 1 07/01/20 24 025 Discontinued Active Problems Problem Noted Date Diagnosed Date Cardiac sarcoidosis 01/25/2024 Frequent PVCs 06/09/2023 Atrial fibrillation and flutter 01/25/2023 Assessment & Plan (03/29/2023 2:06 PM CDT): Persistent atrial fibrillation s/p PVI x 4, Cryo ablation - 07/2022 Developed recurrent symptomatic atrial fibrillation and flutter and underwent repeat PVI ablation with posterior wall isolation - 01/25/2023 She had atypical flutter post ablation and was successfully cardioverted 03/06/2023 She remains in sinus rhythm following cardioversion Reduce amiodarone 100 mg daily due to abnormal thyroid studies, possible subclinical hypothyroidism. Will continue to follow closely. If she remains in sinus rhythm, will plan to discontinue amiodarone at next visit Continue metoprolol and Eliquis Assessment & Plan (03/01/2023 10:55 AM CDT): Persistent atrial fibrillation s/p PVI x 4, Cryo ablation - 07/2022 Developed recurrent symptomatic atrial fibrillation and flutter and underwent repeat PVI ablation with posterior wall isolation - 01/25/2023 She is in atypical flutter today, rate controlled. Will schedule cardioversion, she has not missed any doses of Eliquis in the past 4 weeks Continue amiodarone, metoprolol and Eliquis Assessment & Plan (01/26/2023 12:30 PM CDT): -recurrent episodes of Atrial fib/flutter for the past year, causing exertional SOB and palpitations -failed medical management and DCCV -now s/p ablation by EP, monitored overnight. Required IV lasix x2 doses; diuresed well. Continue home PO lasix 01/27 -resumed amiodarone, metoprolol and eliquis -PPI x30 days per EP recs -NSR on tele - EP f/u 03/01 Morbid obesity with BMI of 40.0-44.9, adult 01/03 Assessment & Plan (01/25/2023 4:49 PM CDT): -counseled on weight loss NICM (nonischemic cardiomyopathy) ([facility]) 02/02 Assessment & Plan (03/29/2023 2:06 PM CDT): Chronic HFrEF, euvolemic on exam Continue GDMT per cosmetology teacher Assessment & Plan (03/01/2023 10:55 AM CDT): Chronic HFrEF, euvolemic on exam Continue GDMT per Dr. Acosta Assessment & Plan (01/25/2023 4:50 PM CDT): -currently stable Chronic systolic congestive heart failure ([facility]) 02/14/2022 Assessment & Plan (01/26/2023 12:31 PM CDT): -previous TTE with EF of 35% -was given IV lasix during A fib ablation today; additional dose given today. Diuresed well. Cleared for d/c by EP. -seems to be euvolemic at this time -CTM -resumed entresto, statin, BB Assessment & Plan (07/07/2022 10:01 AM CDT): - Continue home medications of metoprolol XL, entresto BID, lasix 20mg daily Hyperlipidemia, unspecified 02/14/2022 Assessment & Plan (01/25/2023 4:49 PM CDT): -resumed statin Resolved Problems Problem Noted Date Diagnosed Date Resolved Date Atrial fibrillation ([facility]) 07/06/2022 01/25/2023 Chronic anticoagulation 05/26/202201/03 Persistent atrial fibrillation 02/14/2022 01/25/2023 Assessment & Plan (07/07/2022 10:01 AM CDT): Patient with atrial fibrillation, had unsuccessful cardioversions. Now s/p ablation 07/06 - continue amiodarone 200mg, metoprolol XL 25, and eliquis - PPI x 30d - EP f/u 08/01 Lumbago 06/23/2010 01/25/2023 Immunizations Name Administration Dates Next Due Influenza, Unspecified 06/13/2022 Social History Tobacco Use Types Packs/Day Years Used Date Smoking Tobacco: Former Cigarettes 0.3 35 1 975 - 2009 Smokeless Tobacco: Never Tobacco Cessation:Counseling Given: Not Answered AUDIT-C Answer Date Recorded Q1: How often [...] on file Legal Sex Female 12:40 PM [facility] Gender Identity Female 01/25/2022 10:56 AM CDT Sexual Orientation Not on file Last Filed Vital Signs Vital Sign Reading Time Taken Comments Blood Pressure 110/66 09/27/2024 8:27 AM [facility] Pulse 74 09/27/2024 8:27 AM [facility] Temperature 36.3 ??C (97.4 ??F) 08/30/2024 1:47 PM CS T Respiratory Rate 15 08/30/2024 1:47 PM [facility] Oxygen Saturation 95% 09/27/2024 8:27 AM [facility] Inhaled Oxygen Concentration - - Weight 115.7 kg (255 lb) 09/27/2024 8:27 AM [facility] Height 160 cm (5' 3 ) 09/27/2024 8:27 AM [facility] Body Mass Index 45.17 09/27/2024 8:27 AM [facility] Plan of Treatment Not on file Medical Devices Implanted Type Area Personnel Arbitrator Device Identifier Shelf Expiration Date Model / Serial / Lot [employer] Vascade Mvp 6-12fr Venous Closure [id number] - [id number] - [id number] Implanted:Qty: 1 on 01/25/2023 by Rohit Workman MD at [facility] Collagen Right: Femoral Vein [employer] 11/03/2024 800-612C- 10U / [id number] / [id number] [employer] Vascade Mvp 6-12fr Venous Closure [id number] - [id number] - [id number] Implanted:Qty: 1 on 01/25/2023 by Rohit Workman MD at [facility] Collagen Left: Femoral Vein [employer] 10/28/2024 800-612C- 10U / [id number] 02B / [id number] 02B [employer] Vascade Mvp 6-12fr Venous Closure [id number] - [id number] - [id number] Implanted:Qty: 1 on 01/25/2023 by Rohit Workman MD at [facility] Collagen Left: Femoral Vein [employer] 10/28/2024 800-612C- 10U / [id number] 02B / [id number] 02B [employer] Vascade 6/7fr Bioabsorbable Vascular System Compression Collagen [id number] - [id number] Implanted:Qty: 1 on 07/06/2022 by Rohit Workman MD at [facility] Left: Femoral Vein [employer] 03/29/2024 700-580I- 05U / / [id number] 01A [employer] Vascade Mvp 6-12fr Venous Closure [id number] - [id number] Implanted:Qty: 1 on 07/06/2022 by Derek Day DO at [facility] Left: Femoral Vein [employer] 03/21/2024 800-612C- 10U / / [id number] 26C Description:rEF #[id number] [employer] Vascade Mvp 6-12fr Venous Closure [id number] - [id number] Implanted:Qty: 1 on 07/06/2022 by Derek Day DO at [facility] Right: Femoral Vein [employer] 03/21/2024 800-612C- 10U / / [id number] 26C Description:REF: 800-612C Procedures Procedure Name Priority Date/Time Associated Diagnosis Comments BASIC METABOLIC PANEL Routine 10/04/2024 10:55 AM [facility] Chronic systolic congestive heart failure (CMS/HCC) (HCC) XR SHOULDER RIGHT 2 OR MORE VIEWS Schedule Routine, Read Routine (OP Routine) 09/30/2024 10:10 AM [facility] Other closed displaced fracture of proximal end of right humerus, initial encounter ECG 12-LEAD Routine 09/12/2024 10:17 AM [facility] Atrial fibrillation and flutter (HCC) [I48.91, I48.92] PET/CT MYOCARDIAL METABOLIC EVALUATION FOR SARCOID Schedule Routine, Read Routine (OP Routine) 08/30/2024 11:39 AM [facility] Cardiac sarcoidosis XR SHOULDER RIGHT 2 OR MORE VIEWS Schedule Routine, Read Routine (OP Routine) 08/21/2024 10:53 AM [facility] Other closed displaced fracture of proximal end of right humerus, initial encounter XR TRANSFER OF OUTSIDE FILMS Routine 07/18/2024 9:05 PM [facility] XR TRANSFER OF OUTSIDE FILMS Routine 07/18/2024 7:47 PM [facility] from Last 3 Months Results * (ABNORMAL) Basic metabolic panel (10/04/2024 10:55 AM [facility]) Glucose 93 65 - 139 mg/dL [facility] Comment: ? Non-fasting reference interval BUN 26(H) 7 - 25 mg/dL [facility] Creatinine 0.64 0.60 - 1.00 mg/dL [facility] eGFR 94 > OR = 60 mL/min/1.7 3m2 [facility] BUN/creat ratio 41(H) 6 - 22 (calc) [facility] Sodium 142 135 - 146 mmol/L [facility] Potassium, pl 4.3 3.5 - 5.3 mmol/L [facility] Chloride 105 98 - 110 mmol/L [facility] CO2 27 20 - 32 mmol/L [facility] Calcium 9.5 8.6 - 10.4 mg/dL [facility] Blood 10/04/2024 10:5 5 AM [facility] 10/04/2024 10:55 AM [facility] Narrative [facility] - 10/05/2024 4:00 AM [facility] FASTING:NO FASTING: NO Debra Cancino NP LAB BLOOD ORDERABLES Annette l Result [facility] [address] [place] [address] * X-ray shoulder right 2+ views (09/30/2024 10:10 AM [facility]) Anatomical Region Laterality Modality Upper Extremities, Shoulder Right Comp uted Radiography 09/30/2024 11:0 2 AM [facility] Impressions 09/30/2024 12:57 PM [facility] 1. ??Healing right humeral surgical neck fracture in unchanged alignment. Dictated by: Ho Arriola MD PHD The radiology attending physician has personally reviewed this study, and had reviewed and/or edited this written report and agrees with it. Electronically signed by: Stanislav Villasenor M.D. Narrative 09/30/2024 12:57 PM [facility] EXAMINATION: XR SHOULDER RIGHT 2 OR MORE VIEWS HISTORY: ??Shoulder fracture. FINDINGS: 3 exposures of the right shoulder compared to 08/21/2024. Healing reduced fracture of the right humerus surgical neck with fragments in unchanged alignment. ??Mild acromioclavicular osteoarthritis. Procedure Note Stanislav Sunshine MD - 09/30/2024 EXAMINATION: XR SHOULDER RIGHT 2 OR MORE VIEWS HISTORY: Shoulder fracture. FINDINGS: 3 exposures of the right shoulder compared to 08/21/2024. Healing reduced fracture of the right humerus surgical neck with fragments in unchanged alignment. Mild acromioclavicular osteoarthritis. IMPRESSION: 1. Healing right humeral surgical neck fracture in unchanged alignment. Dictated by: Ho Arriola MD PHD The radiology attending physician has personally reviewed this study, and had reviewed and/or edited this written report and agrees with it. Electronically signed by: Stanislav Villasenor M.D. us Ling Goodwin MD IMG XR PROCEDURES Final Re sult * ECG 12 lead (09/12/2024 10:17 AM [facility]) us Rohit Workman MD ECG ORDERABLES Final R esult * PET/CT FDG Cardiac Sarcoid/Infection (08/30/2024 11:39 AM [facility]) Anatomical Region Laterality Modality N/A Positron Emissio n Tomography (PET) 08/30/2024 2:05 PM [facility] Impressions 08/30/2024 2:09 PM [facility] 1. ??Interval complete resolution of the abnormal inflammatory myocardial FDG uptake described in prior exam dating 11/27/23. ??Thus, no evidence of myocardial inflammation any more. 2. ??No evidence of systemic inflammation. 3. ??Moderate FDG uptake around the healed proximal right humerus fracture. Dr. Armstrong also participated in the interpretation of the study. Dictated by: Del Epperson MD The radiology attending physician has personally reviewed this study, and had reviewed and/or edited this written report and agrees with it. Electronically signed by: Mikie Del Valle M.D. Narrative 08/30/2024 2:09 [address] [facility] EXAMINATION: MYOCARDIAL PET/CT (METABOLISM) DATE OF STUDY: 08/30/2024 ?? SCANNER: [facility] [employer] (NV1). ??This is a high-resolution scanner, which can result in higher SUVs (and even detection of new small lesions) compared to older scanners. RADIOPHARMACEUTICAL: 16.29 mCi F-18 Fluorodeoxyglucose (FDG) i.v. Injection site: Left hand. HISTORY: 69-year-old woman with atrial fibrillation (treated with amiodarone and ablation in 2021 and ) further to the left premature ventricular contractions likely LV in origin based on Holter monitoring raising concern for cardiac sarcoidosis. ??Prior PET/CT dated 3 01/27/2024 showed findings compatible with cardiac inflammatory process. ??Genetic testing did not identify any pathological gradients to cause disease. Evaluate for active inflammation/sarcoidosis of the myocardium. ?? TECHNIQUE: The patient fasted for approximately 16 hours prior to administration of FDG. ??The patient had been instructed to avoid carbohydrates (and consume only proteins and fat) during the last meal prior to fasting, and the patient did comply with these instructions. ?? The patient's fasting blood glucose level, measured by glucometer before injection of FDG, was 90 mg/dL. ?? After intravenous administration of FDG, noncontrast CT images were obtained for attenuation correction and for fusion with emission PET images to allow for anatomical localization of findings. Emission PET images were then obtained. ??The study was interpreted on the [employer] workstation. Scanned area: upper thorax to the lower thorax; the time from injection of FDG to start of imaging for this scan position was 83 and 90 minutes. COMPARISON: FDG-PET/CT 11/26/2023. FINDINGS: There is interval resolution of the patchy tracer uptake along the left ventricular myocardium and septal quiroz. ??No abnormal myocardial FDG uptake on the current study. Moderate FDG uptake around the healing proximal right humerus fracture. Procedure Note Mikie Del Valle MD - 08/30/2024 EXAMINATION: MYOCARDIAL PET/CT (METABOLISM) DATE OF STUDY: 08/30/2024 SCANNER: [facility] [employer] (NV1). This is a high-resolution scanner, which can result in higher SUVs (and even detection of new small lesions) compared to older scanners. RADIOPHARMACEUTICAL: 16.29 mCi F-18 Fluorodeoxyglucose (FDG) i.v. Injection site: Left hand. HISTORY: 69-year-old woman with atrial fibrillation (treated with amiodarone and ablation in 2021 and ) further to the left premature ventricular contractions likely LV in origin based on Holter monitoring raising concern for cardiac sarcoidosis. Prior PET/CT dated 3 01/27/2024 showed findings compatible with cardiac inflammatory process. Genetic testing did not identify any pathological gradients to cause disease. Evaluate for active inflammation/sarcoidosis of the myocardium. TECHNIQUE: The patient fasted for approximately 16 hours prior to administration of FDG. The patient had been instructed to avoid carbohydrates (and consume only proteins and fat) during the last meal prior to fasting, and the patient did comply with these instructions. The patient's fasting blood glucose level, measured by glucometer before injection of FDG, was 90 mg/dL. After intravenous administration of FDG, noncontrast CT images were obtained for attenuation correction and for fusion with emission PET images to allow for anatomical localization of findings. Emission PET images were then obtained. The study was interpreted on the [employer] workstation. Scanned area: upper thorax to the lower thorax; the time from injection of FDG to start of imaging for this scan position was 83 and 90 minutes. COMPARISON: FDG-PET/CT 11/26/2023. FINDINGS: There is interval resolution of the patchy tracer uptake along the left ventricular myocardium and septal quiroz. No abnormal myocardial FDG uptake on the current study. Moderate FDG uptake around the healing proximal right humerus fracture. IMPRESSION: 1. Interval complete resolution of the abnormal inflammatory myocardial FDG uptake described in prior exam dating 11/27/23. Thus, no evidence of myocardial inflammation any more. 2. No evidence of systemic inflammation. 3. Moderate FDG uptake around the healed proximal right humerus fracture. Dr. Armstrong also participated in the interpretation of the study. Dictated by: Del Epperson MD The radiology attending physician has personally reviewed this study, and had reviewed and/or edited this written report and agrees with it. Electronically signed by: Mikie Del Valle M.D. Florentino Partida MD IMG PET PROCEDURES Final Res ult * X-ray shoulder right 2+ views (08/21/2024 10:53 AM [facility]) Anatomical Region Laterality Modality Upper Extremities, Shoulder Right Comp uted Radiography 08/21/2024 11:3 0 AM [facility] Impressions 08/21/2024 11:30 AM [facility] Healing comminuted proximal right humerus fracture in unchanged alignment. Electronically signed by: Uriel Weaver M.D. Narrative 08/21/2024 11:30 AM [facility] XR SHOULDER RIGHT 2 OR MORE VIEWS HISTORY: ??Shoulder fracture. FINDINGS: ??3 views of the right shoulder are obtained and compared with 07/12/2024. There is redemonstrated mildly comminuted and displaced proximal right humerus fracture. ??There is mild interval callus formation. Alignment is unchanged. ??There is unchanged mild acromial clavicular and glenohumeral osteoarthritis. ??Soft tissues are normal. Procedure Note Uriel Weaver MD - 08/21/2024 XR SHOULDER RIGHT 2 OR MORE VIEWS HISTORY: Shoulder fracture. FINDINGS: 3 views of the right shoulder are obtained and compared with 07/12/2024. There is redemonstrated mildly comminuted and displaced proximal right humerus fracture. There is mild interval callus formation. Alignment is unchanged. There is unchanged mild acromial clavicular and glenohumeral osteoarthritis. Soft tissues are normal. IMPRESSION: Healing comminuted proximal right humerus fracture in unchanged alignment. Electronically signed by: Uriel Weaver M.D. Ling Goodwin MD IMG XR PROCEDURES Final Re sult * XR Outside Reference (07/18/2024 9:05 PM [facility]) Impressions RAD_PACS_[facility] - 07/18/2024 9:05 PM [facility] These images are for Reference purposes only and have not been reviewed by [facility]. ??There will be no report generated by a [facility] Radiologist. Narrative RAD_PACS_[facility] - 07/18/2024 9:05 PM [facility] EXAMINATION: ??Images For Reference Purposes Only us Ling Goodwin MD IMG XR PROCEDURES Final Re sult Performing Organization Address City/[facility] Co de Phone Number [facility]_PACS[facility] * XR Outside Reference (07/18/2024 7:47 PM [facility]) Impressions [facility] - 07/18/2024 7:47 PM [facility] These images are for Reference purposes only and have not been reviewed by [facility]. ??There will be no report generated by a [facility] Radiologist. Narrative [facility] - 07/18/2024 7:47 PM [employer] EXAMINATION: ??Images For Reference Purposes Only us Ling Goodwin MD IMG XR PROCEDURES Final Re sult Performing Organization Address [facility] Co de Phone Number [facility] from Last 3 Months Insurance T MEDICARE [facility] MEDICARE [facility] MEDICARE [facility] MEDICARE Advance Directives For more information, please contact: [phone] * Full Code (Latest Code Status on File) Date Activated Date Inactivated Comments 01/25/2023 4:20 PM 01/26/2023 4:32 PM * Full Code Date Activated Date Inactivated Comments 07/06/2022 4:07 PM 07/07/2022 3:29 PM Care Teams Hazmat Truck Driver Relationship Specialty Start Date End Date Kyleigh Read MD PCP - General Family Medicine 12/17/21
--- OUTSIDE RECORDS SUMMARY | 2024-10-08 12:27 | XMS_ITS | Clinical Summary ---
Author Organization [facility] [place] [address] [facility] [address] Address [address] [place] [address] Care Team Providers Care Tare Weigher Name Role Phone Kyleigh Read MD Primary Care Provider + Allergies Active Allergy Reactions Criticality Noted Date [...] TABLET DAILY FOR 4 DAYS DIRECTED 08/18/20 24 Active predniSONE (DELTASONE) 20 mg tablet TAKE [...] -counseled on weight loss NICM (nonischemic cardiomyopathy) ([facility]) 02/02 Assessment & Plan (03/29/2023 2:06 PM CDT): Chronic HFrEF, euvolemic on exam Continue GDMT per sample checker Assessment & Plan (03/01/2023 10:55 AM CDT): Chronic HFrEF, euvolemic on exam Continue GDMT per Dr. Acosta Assessment & Plan (01/25/2023 4:50 PM CDT): -currently stable Chronic systolic congestive heart failure (CMS/H CC) 02/14/2022 Assessment & Plan (01/26/2023 12:31 [...] Date Diagnosed Date Resolved Date Atrial fibrillation ([facility]) 07/06/2022 01/25/2023 Chronic anticoagulation 05/26/202201/03 Persistent atrial fibrillation 02/14/2022 01/25/2023 Assessment & Plan (07/07/2022 10:01 AM CDT): Patient with atrial fibrillation, had unsuccessful cardioversions. Now s/p ablation 07/06 - continue amiodarone 200mg, metoprolol XL 25, and eliquis - PPI x 30d - EP f/u 08/01 Lumbago 06/23/2010 01/25/2023 Encounters Date Type Department Care Team Description 10/07/[address] [facility] Cardiology [address] [facility] [address] [place] [address] Debra Cancino NP 09/30/2024 10:40 AM CLAIMS AUDITOR Office Visit [facility] Orthopaedic Surgery [address] [facility] 6th [place] [address] [place] [address] Ling Goodwin MD Other closed displaced fracture of proximal end of right humerus, initial encounter (Primary Dx) 09/30/2024 9:40 AM CLAIMS AUDITOR - 09/30/2024 11:59 PM CLAIMS AUDITOR Hospital Encounter [facility] [address] [place] [address] Ling Goodwin MD Other closed displaced fracture of proximal end of right humerus, initial encounter Discharge Disposition: Discharge to home or self care 09/27/2024 8:30 AM CLAIMS AUDITOR Office Visit [facility] Medical [facility] Cardiology [address] [place] [address] Debra Cancino NP Chronic systolic congestive heart failure (CMS/HCC) (HCC); Edema, lower extremity 09/13/[address] [facility] Medical [facility] Cardiology [address] [place] [address] Mac Acosta MD 09/12/2024 10:30 AM CLAIMS AUDITOR Office Visit [facility] Cardiology [address] [facility] [address] [place] [phone] Rohit Workman MD Atrial fibrillation and flutter (HCC) [I48.91, I48.92] (Primary Dx) 08/30/2024 2:00 PM CLAIMS AUDITOR Office Visit [facility] Pulmonary [facility] [facility] 8th [place] [address] [place] [address] Florentino Partida MD Nonischemic cardiomyopathy (CMS/HCC) (HCC) (Primary Dx); Atrial fibrillation and flutter (HCC) 08/30/2024 8:43 AM CLAIMS AUDITOR - 08/30/2024 11:59 PM CLAIMS AUDITOR Hospital Encounter [facility]) [address] [place] [phone] Discharge Disposition: Discharge to home or self care 08/30/2024 8:43 AM CLAIMS AUDITOR - 08/30/2024 11:59 PM CLAIMS AUDITOR Hospital Encounter [facility]) [address] [place] [address] Cardiac sarcoidosis Discharge Disposition: Discharge to home or self care 08/21/2024 11:40 AM CLAIMS AUDITOR Office Visit [facility] [address] [facility] 6th [place] [address] [place] [address] Ling Goodwin MD Other closed displaced fracture of proximal end of right humerus, initial encounter (Primary Dx) 08/21/2024 10:40 AM CLAIMS AUDITOR - 08/21/2024 11:59 PM CLAIMS AUDITOR Hospital Encounter [facility]) [address] [place] [address] Ling Goodwin MD Other closed displaced fracture of proximal end of right humerus, initial encounter Discharge Disposition: Discharge to home or self care 07/24/2024 10:25 AM CLAIMS AUDITOR Office Visit [facility]edic Surgery [address] [place] [address] Advanced Medicine 6th [place] [address] [place] [address] Ling Goodwin MD Other closed displaced fracture of proximal end of right humerus, initial encounter (Primary Dx) 07/18/2024 9:05 PM CLAIMS AUDITOR - 07/18/2024 11:59 PM CLAIMS AUDITOR Hospital Encounter [facility] Radiology [place] [facility] ([facility]) [address] [place] [phone] Discharge Disposition: Discharge to home or self care 07/18/2024 7:47 PM CLAIMS AUDITOR - 07/18/2024 11:59 PM CLAIMS AUDITOR Hospital Encounter [facility] ([facility]) [address] [place] [phone] Discharge Disposition: Discharge to home or self care from Last 3 Months Immunizations Name Administration Dates Next Due Influenza, Unspecified 06/13/2022 Surgical History Surgery Date Site/Laterality Comments TONSILLECTOMY TUBAL LIGATION CARDIOVERSION x 3 CARDIAC ELECTROPHYSIOLOGY MA PPING AND ABLATION 07/05/2022 - 08/03/2022 Medical History Medical History Date Comments Arrhythmia CHF (congestive heart failure) (CMS/HCC) (HCC) Atrial fibrillation and flutter (HCC) Obesity Back pain Family History Medical History Relation Name Comments Heart disease Father atrial septal defect Mother Stroke Other 1 Stroke Syndrome - (Added by TW Conv) Hypertension Other 2 Hypertension - (Added by TW Conv) Heart disease Other 3 Heart Disease - (Added by TW Conv) Heart failure Sister Anesthesia problems Neg Hx Malig Hyperthermia Neg Hx Pseudochol deficiency Neg Hx Relation Name Status Comments Father Mother Other 1 Other 2 Other 3 Sister Social History Tobacco Use Types Packs/Day Years Used Date Smoking Tobacco: Former Cigarettes 0.3 35 1 975 - 2010 Smokeless Tobacco: Never Tobacco Cessation:Counseling Given: Not [...] on file Legal Sex Female 12:40 PM CLAIMS AUDITOR Gender Identity Female 01/25/2022 10:56 AM CDT Sexual Orientation Not on file Obstetrics History Last Filed Vital Signs Vital Sign Reading Time Taken Comments Blood Pressure 110/66 09/27/2024 8:27 AM CLAIMS AUDITOR Pulse 74 09/27/2024 8:27 AM CLAIMS AUDITOR Temperature 36.3 ??C (97.4 ??F) 08/30/2024 1:47 PM CS T Respiratory Rate 15 08/30/2024 1:47 PM CLAIMS AUDITOR Oxygen Saturation 95% 09/27/2024 8:27 AM CLAIMS AUDITOR Inhaled Oxygen Concentration - - Weight 115.7 kg (255 lb) 09/27/2024 8:27 AM CLAIMS AUDITOR Height 160 cm (5' 3 ) 09/27/2024 8:27 AM CLAIMS AUDITOR Body Mass Index 45.17 09/27/2024 8:27 AM CLAIMS AUDITOR Plan of Treatment Health Maintenance Due Date Last Done Comments Breast Cancer Screening-Mammogram 1953 Colon Cancer Screening-Colonoscopy 1955 Depression Screening 1953 Hepatitis C Screening 1953 Osteoporosis Screening-Bone Density Scan 1953 Pneumococcal vaccine 65+ (1 of 2 - PCV) 1959 DTaP/Tdap/Td Vaccine (1 - Tdap) 1964 Hepatitis B Screening 1971 Zoster Vaccine (1 of 2) 2003 Well Visit 65+ 2018 Fall Risk Assessment 03/06/2024 03/06/2023 Covid-19 Vaccine (4 - 2023-2 5 season) 2024 06/13/2021, 11/19/2020, 10/29/2020 Influenza Vaccine (#1) 2024 2, 06/13/2021, 06/15/2020, Additional history exists Medical Devices Implanted Type Area Certified Orthotist/Pedorthist Device Identifier Shelf Expiration Date Model / Serial / Lot [employer] Vascade Mvp 6-12fr Venous Closure [id number] - [id number] - [id number] Implanted:Qty: 1 on 01/25/2023 by Rohit Workman MD at [facility] Collagen Right: Femoral Vein [employer] 11/03/2024 800-612C- 10U / [id number] / [id number] 13A [employer] Vascade Mvp 6-12fr Venous Closure [id number] - [id number] - [id number] Implanted:Qty: 1 on 01/25/2023 by Rohit Workman MD at [facility] Collagen Left: Femoral Vein [employer] 10/28/2024 800-612C- 10U / [id number] 02B / [id number] 02B [employer] Vascade Mvp 6-12fr Venous Closure [id number] - [id number] - [id number] Implanted:Qty: 1 on 01/25/2023 by Rohit Workman MD at [facility] Collagen Left: Femoral Vein [employer] 10/28/2024 800-612C- 10U / [id number] 02B / [id number] 02B [employer] Vascade 6/7fr Bioabsorbable Vascular System Compression Collagen [id number] - [id number] Implanted:Qty: 1 on 07/06/2022 by Rohit Workman MD at [facility] Left: Femoral Vein [employer] 03/29/2024 700-580I- 05U / / [id number] 01A [employer] Vascade Mvp 6-12fr Venous Closure [id number] - [id number] Implanted:Qty: 1 on 07/06/2022 by Derek Day DO at [facility] Left: Femoral Vein [employer] 03/21/2024 800-612C- 10U / / [id number] 26C Description:rEF #[id number] [employer] Vascade Mvp 6-12fr Venous Closure [id number] - [id number] Implanted:Qty: 1 on 07/06/2022 by Derek Day DO at [facility] Right: Femoral Vein [employer] 03/21/2024 800-612C- 10U / / [id number] 26C Description:REF: 800-612C Procedures Procedure Name Priority Date/Time Associated Diagnosis Comments BASIC METABOLIC PANEL Routine 10/04/2024 10:55 AM CLAIMS AUDITOR Chronic systolic congestive heart failure (CMS/HCC) (HCC) XR SHOULDER RIGHT 2 OR MORE VIEWS Schedule Routine, Read Routine (OP Routine) 09/30/2024 10:10 AM CLAIMS AUDITOR Other closed displaced fracture of proximal end of right humerus, initial encounter ECG 12-LEAD Routine 09/12/2024 10:17 AM CLAIMS AUDITOR Atrial fibrillation and flutter (HCC) [I48.91, I48.92] PET/CT MYOCARDIAL METABOLIC EVALUATION FOR SARCOID Schedule Routine, Read Routine (OP Routine) 08/30/2024 11:39 AM CLAIMS AUDITOR Cardiac sarcoidosis XR SHOULDER RIGHT 2 OR MORE VIEWS Schedule Routine, Read Routine (OP Routine) 08/21/2024 10:53 AM CLAIMS AUDITOR Other closed displaced fracture of proximal end of right humerus, initial encounter XR TRANSFER OF OUTSIDE FILMS Routine 07/18/2024 9:05 PM CLAIMS AUDITOR XR TRANSFER OF OUTSIDE FILMS Routine 07/18/2024 7:47 PM CLAIMS AUDITOR from Last 3 Months Results * (ABNORMAL) Basic metabolic panel (10/04/2024 10:55 AM CLAIMS AUDITOR) Glucose 93 65 - 139 mg/dL [facility] Blood 10/04/2024 10:5 5 AM CLAIMS AUDITOR 10/04/2024 10:55 AM CLAIMS AUDITOR Narrative [facility] - 10/05/2024 4:00 AM CLAIMS AUDITOR FASTING:NO FASTING: NO Debra Cancino NP LAB BLOOD ORDERABLES Annette l Result [facility] [address] [place] [address] * X-ray shoulder right 2+ views (09/30/2024 10:10 AM CLAIMS AUDITOR) Anatomical Region Laterality Modality Upper Extremities, Shoulder Right Comp uted Radiography 09/30/2024 11:0 2 AM CLAIMS AUDITOR Impressions 09/30/2024 12:57 PM CLAIMS AUDITOR 1. ??Healing right humeral surgical neck fracture in unchanged alignment. Dictated by: Ho Arriola MD PHD The radiology attending physician has personally reviewed this study, and had reviewed and/or edited this written report and agrees with it. Electronically signed by: Stanislav Villasenor M.D. Narrative 09/30/2024 12:57 PM CLAIMS AUDITOR EXAMINATION: XR SHOULDER RIGHT 2 OR MORE VIEWS HISTORY: ??Shoulder fracture. FINDINGS: 3 exposures of the right shoulder compared to 08/21/2024. Healing reduced fracture of the right humerus surgical neck with fragments in unchanged alignment. ??Mild acromioclavicular osteoarthritis. Procedure Note Zi Sunshinege Alberto, MD - 09/30/2024 EXAMINATION: XR SHOULDER RIGHT [...] * ECG 12 lead (09/12/2024 10:17 AM CLAIMS AUDITOR) us Rohit Workman MD ECG ORDERABLES Final R esult * PET/CT FDG Cardiac Sarcoid/Infection (08/30/2024 11:39 AM CLAIMS AUDITOR) Anatomical Region Laterality Modality N/A Positron Emissio n Tomography (PET) 08/30/2024 2:05 PM CLAIMS AUDITOR Impressions 08/30/2024 2:09 PM CLAIMS AUDITOR 1. ??Interval complete resolution of the abnormal [...] Del Valle M.D. Narrative 08/30/2024 2:09 PM CLAIMS AUDITOR EXAMINATION: MYOCARDIAL PET/CT (METABOLISM) DATE OF STUDY: 08/30/2024 ?? SCANNER: [facility] N PET Vision (NV1). ??This is a high-resolution [...] obtained. ??The study was interpreted on the Gevo workstation. Scanned area: upper thorax to the [...] PET/CT (METABOLISM) DATE OF STUDY: 08/30/2024 SCANNER: [facility] Quench (NV1). This is a high-resolution scanner, which [...] obtained. The study was interpreted on the Gevo workstation. Scanned area: upper thorax to the [...] shoulder right 2+ views (08/21/2024 10:53 AM CLAIMS AUDITOR) Anatomical Region Laterality Modality Upper Extremities, Shoulder Right Comp uted Radiography 08/21/2024 11:3 0 AM CLAIMS AUDITOR Impressions 08/21/2024 11:30 AM CLAIMS AUDITOR Healing comminuted proximal right humerus fracture in unchanged alignment. Electronically signed by: Uriel Weaver M.D. Narrative 08/21/2024 11:30 AM CLAIMS AUDITOR XR SHOULDER RIGHT 2 OR MORE VIEWS [...] * XR Outside Reference (07/18/2024 9:05 PM CLAIMS AUDITOR) Impressions [facility] - 07/18/2024 9:05 PM CLAIMS AUDITOR These images are for Reference purposes only and have not been reviewed by [facility]. ??There will be no report generated by a [facility] Radiologist. Narrative [facility] - 07/18/2024 9:05 PM CLAIMS AUDITOR EXAMINATION: ??Images For Reference Purposes Only Ling Goodwin MD IMG XR PROCEDURES Final Re sult [facility] * XR Outside Reference (07/18/2024 7:47 PM CLAIMS AUDITOR) Impressions [facility] - 07/18/2024 7:47 PM CLAIMS AUDITOR These images are for Reference purposes only and have not been reviewed by [facility]. ??There will be no report generated by a [facility] Radiologist. Narrative [facility] - 07/18/2024 7:47 PM CLAIMS AUDITOR EXAMINATION: ??Images For Reference Purposes Only us Ling Goodwin MD IMG XR PROCEDURES Final Re sult [facility] from Last 3 Months Insurance [employer] MEDICARE [employer] MEDICARE [employer] MEDICARE [employer] MEDICARE Advance Directives For more information, please contact: [phone] * Full Code (Latest Code Status on File) Date Activated Date Inactivated Comments 01/25/2023 4:20 PM 01/26/2023 4:32 PM * Full Code Date Activated Date Inactivated Comments 07/06/2022 4:07 PM 07/07/2022 3:29 PM Care Teams Tare Weigher Relationship Specialty Start Date End Date Kyleigh Read MD PCP - General Family Medicine 12/17/21
== END 2024-10-08 12:21 | disposition home or self-care (01) ==
PROVIDERS: PCP Family Medicine; Visit Provider Family Medicine
DX: E04.1 Nontoxic single thyroid nodule (principal)
CPT/HCPCS: 10005; 88172; 88173; 88177; 88305

== ENCOUNTER 2025-01-01 10:28 | Emergency (ER) | payer MEDICARE, SELFPAY ==
--- NOTE | ~2025-01-01 | XR_ITS ---
Right Knee Technique: AP, lateral, and sunrise views were obtained. Clinical History: Pain Findings: No fracture or dislocation is seen. Osseous alignment is anatomic. There is mild tricompart mental degenerative change. Soft tissues are unremarkable. No joint effusion is seen. Impression: Mild tricompartmental degenerative change. Reviewed, dictated and finalized at [facility]. Impression: Mild tricompartmental degenerative change.
[2025-01-01 10:36] VITALS: BP 110/80; PULSE 70; RESP 18; TEMP 36.6; O2SAT 96
--- OUTSIDE RECORDS SUMMARY | 2025-01-01 11:40 | XMS_ITS | Referral Summary ---
Author Organization [facility] [address] [facility] [address] Address [address] [place] [address] Care Team Providers Care Director Workforce Management Name Role Phone Kyleigh Read MD Primary Care Provider + Encounters Date Type Department Care Team Description 12/25/2024 10:12 AM CDT - 12/25/2024 11:59 PM CDT Hospital Encounter [facility] [address] [place] [address] Other closed displaced fracture of proximal end of right humerus, initial encounter Discharge Disposition: Discharge to home or self care 12/25/2024 10:40 AM CDT Office Visit [facility] Orthopaedic Surgery [address] [facility] Advanced Medicine 6th [place] [address] [place] [address] Ling Goodwin MD Other closed displaced fracture of proximal end of right humerus, initial encounter (Primary Dx); Follow-up exam 11/15/2024 11:30 AM CDT Office Visit [facility] Medical Group Cardiology [address] [facility] [address] [place] [address] Mac Acosta MD Atrial fibrillation and flutter (HCC) (Primary Dx); Cardiac sarcoidosis; Chronic systolic congestive heart failure (HCC); Frequent PVCs; NICM (nonischemic cardiomyopathy) (HCC); Morbid obesity with BMI of 40.0-44.9, adult (HCC); Hyperlipidemia, unspecified hyperlipidemia type 11/05/2024 Results Follow-Up [facility] Medical Group Cardiology [address] [place] [address] Debra Cancino NP 10/16/2024 Orders Only [facility] Orthopaedic Surgery [address] [facility] 6th [place] [address] [place] [address] Ling Goodwin MD Other closed displaced fracture of proximal end of right humerus, initial encounter (Primary Dx) 10/07/2024 Telephone [facility] Medical [facility] Cardiology [address] [place] [address] Debra Cancino NP from Last 3 Months Allergies Active Allergy Reactions Criticality Noted Date Comments Amiodarone Other (See comments) Medium 08/30/2024 Thyroid Toxicity Cheese - Blue Other (See comments) Low 04/07/2022 Neck gland swelling and bloating Medications calcium carbonate/vandana min D3 (CALTRATE 600 PLUS D ORAL) Take 1 tablet by mouth nightly Active vitamin b complex tabletIndicati ons:Vitamin Deficiency Prevention Take 1 tablet by mouth nightly Active cholecalcifero l (VITAMIN D-3) 1,000 unit capsule Take 1 capsule (1,000 Units total) by mouth nightly Active oxygenIndicati ons:Dyspnea Administer 2 L/min into each nostril nightly Active atorvastatin (LIPITOR) 20 mg tabletIndicati ons:hyperlipid emia Take 1 tablet (20 mg total) by mouth nightly Active magnesium oxide (MAG-OX) 250 mg (150.8 mg elemental) tabletIndicati ons:hypomagnes emia Take 1 tablet (250 mg total) by mouth daily Active Entresto 49-51 mg tabletIndicati ons:Chronic systolic congestive heart failure (HCC) TAKE 1 TABLET BY MOUTH TWICE A DAY 60 tablet 11 024 Active furosemide (LASIX) 20 mg tabletIndicati ons:Chronic systolic congestive heart failure (HCC) TAKE 1 TABLET BY MOUTH TWICE A DAY 180 tablet 1 025 Active potassium chloride ER 20 mEq CR tabletIndicati ons:Chronic systolic congestive heart failure (HCC) TAKE 1 TABLET (20 MEQ TOTAL) BY MOUTH DAILY WITH A MEAL 90 tablet 1 025 Active Eliquis 5 mg tabletIndicati ons:Atrial fibrillation, unspecified type (HCC) TAKE 1 TABLET BY MOUTH EVERY 12 HOURS 60 tablet 11 025 Active Zepbound 2.5 mg/0.5 mL pen injector 2.5 MG (0.5 ML) SUBCUTANEOUSLY WEEKLY 025 Active Zepbound 5 mg/0.5 mL pen injector INJECT 5 MG (0.5 ML) SUBCUTANEOUSLY WEEKLY BMI 44 025 Active metoprolol XL (TOPROL-XL) 25 mg extended release tabletIndicati ons:Atrial fibrillation, unspecified type (HCC) TAKE 1 TABLET BY MOUTH EVERY DAY IN THE MORNING 90 tablet 2 025 Active metoprolol XL (TOPROL-XL) 25 mg extended release tabletIndicati ons:Atrial fibrillation, unspecified type (HCC) TAKE 1 TABLET BY MOUTH EVERY DAY IN THE MORNING 90 tablet 3 024 2024 Discontinued Active Problems Problem Noted Date Diagnosed [...] -counseled on weight loss NICM (nonischemic cardiomyopathy) 02/14/2022 Assessment & Plan (03/29/2023 2:06 PM CDT): Chronic HFrEF, euvolemic on exam Continue GDMT per town administrator Assessment & Plan (03/01/2023 10:55 AM CDT): Chronic HFrEF, euvolemic on exam Continue GDMT per Dr. Acosta Assessment & Plan (01/25/2023 4:50 PM CDT): -currently stable Chronic systolic congestive heart failure 2021 Assessment & Plan (01/26/2023 12:31 PM CDT): [...] Date Diagnosed Date Resolved Date Atrial fibrillation 07/06/2022 01/26/20 23 Chronic anticoagulation 05/26/2022 052 12/2022 Persistent atrial fibrillation 02/14/2022 01/25/2023 Assessment & Plan (07/07/2022 10:01 AM CDT): Patient with atrial fibrillation, had unsuccessful cardioversions. Now s/p ablation 07/06 - continue amiodarone 200mg, metoprolol XL 25, and eliquis - PPI x 30d - EP f/u 08/01 Lumbago 06/23/2010 01/25/2023 Immunizations Immunization Administration Dates Next Due Influenza, Unspecified 06/13/2022 Social History Tobacco Use Types Packs/Day Years Used Date Smoking Tobacco: Former Cigarettes 0.3 40.7 0 09/04/1974 - 2009 Smokeless Tobacco: Never Tobacco Cessation:Counseling [...] on file Legal Sex Female 12:40 PM BUSINESS EMPLOYMENT SPECIALIST Gender Identity Female 01/25/2022 10:56 AM CDT Sexual Orientation Not on file Last Filed Vital Signs Vital Sign Reading Time Taken Comments Blood Pressure 114/70 11/15/2024 11:38 AM CDT Pulse 77 11/15/2024 11:38 AM CDT Temperature 36.3 C (97.4 F) 08/30/2024 1:47 PM BUSINESS EMPLOYMENT SPECIALIST Respiratory Rate 15 08/30/2024 1:47 PM BUSINESS EMPLOYMENT SPECIALIST Oxygen Saturation 97% 11/15/2024 11:38 AM CDT Inhaled Oxygen Concentration - - Weight 111.1 kg (245 lb) 11/15/2024 11:38 AM CDT Height 160 cm (5' 3 ) 11/15/2024 11:38 AM CDT Body Mass Index 43.4 11/15/2024 11:38 AM CDT Plan of Treatment Not on file Medical Devices Implanted Type Area Freight Sorter Device Identifier Shelf Expiration Date Model / Serial / Lot [employer] Vascade Mvp 6-12fr Venous Closure [id number] - [id number] - [id number] Implanted:Qty: 1 on 01/25/2023 by Rohit Workman MD at [facility] Collagen Right: Femoral Vein [employer] 11/03/2024 800-612C- 10U / [id number] / [id number] 13A [employer] Vascade Mvp 6-12fr Venous Closure [id number] - [id number] - [id number] Implanted:Qty: 1 on 01/25/2023 by Rohit Workman MD at [facility] Collagen Left: Femoral Vein [employer] 10/28/2024 800-612C- 10U / [id number] [id number] / [id number] 02B [employer] Vascade Mvp 6-12fr Venous Closure [id number] - [id number] - [id number] Implanted:Qty: 1 on 01/25/2023 by Rohit Workman MD at [facility] Collagen Left: Femoral Vein [employer] 10/28/2024 800-612C- 10U / [id number] 02B / [id number] 02B [employer] Vascade 6/7fr Bioabsorbable Vascular System Compression Collagen [id number] - [id number] Implanted:Qty: 1 on 07/06/2022 by Rohit Workman MD at [facility] Left: Femoral Vein [employer] 03/29/2024 700-580I- 05U / / [id number] 01A [employer] Vascade Mvp 6-12fr Venous Closure [id number] - [id number] Implanted:Qty: 1 on 07/06/2022 by Derek Day DO at [facility] Left: Femoral Vein [employer] 03/21/2024 800-612C- 10U / / [id number] 26C Description:rEF #800-612C [employer] Vascade Mvp 6-12fr Venous Closure [id number] - [id number] Implanted:Qty: 1 on 07/06/2022 by Derek Day DO at [facility] Right: Femoral Vein [employer] 03/21/2024 800-612C- 10U / / [id number] 26C Description:REF: 800-612C Procedures Procedure Name Priority Date/Time Associated Diagnosis Comments XR SHOULDER RIGHT 2 OR MORE VIEWS Routine 12/25/2024 10:25 AM CDT Other closed displaced fracture of proximal end of right humerus, initial encounter POCT LIPID PANEL Routine 11/15/2024 11:3 8 AM CDT Hyperlipidemia, unspecified hyperlipidemia type BASIC METABOLIC PANEL Routine 11/04/2024 11:12 AM BUSINESS EMPLOYMENT SPECIALIST Chronic systolic congestive heart failure (HCC) BASIC METABOLIC PANEL Routine 10/04/2024 10:55 AM BUSINESS EMPLOYMENT SPECIALIST Chronic systolic congestive heart failure (HCC) from Last 3 Months Results * XR Shoulder Right 2 or More Views (12/25/2024 10:25 AM CDT) Anatomical Region Laterality Modality Upper Extremities, Shoulder Right Comp uted Radiography 12/25/2024 11:0 1 AM CDT Impressions 12/25/2024 11:01 AM CDT 1. Healing proximal right humerus fracture in unchanged alignment Electronically signed by: Arlette Hernandez MD Narrative 12/25/2024 11:01 AM CDT EXAMINATION: XR SHOULDER RIGHT 2 OR MORE VIEWS HISTORY: Right shoulder pain FINDINGS: 3 views of the right shoulder are compared to 09/30/2024. There is a healing fracture of the proximal right humerus at the surgical neck. Overall alignment is unchanged. Mild acromioclavicular joint osteoarthritis is noted. The glenohumeral joint appears normal. Procedure Note Chari Hernandez MD - 12/25/2024 EXAMINATION: XR SHOULDER RIGHT 2 OR MORE VIEWS HISTORY: Right shoulder pain FINDINGS: 3 views of the right shoulder are compared to 09/30/2024. There is a healing fracture of the proximal right humerus at the surgical neck. Overall alignment is unchanged. Mild acromioclavicular joint osteoarthritis is noted. The glenohumeral joint appears normal. IMPRESSION: 1. Healing proximal right humerus fracture in unchanged alignment Electronically signed by: Arlette Hernandez MD Ling Goodwin MD IMG XR PROCEDURES Final Re sult * POCT lipid panel (11/15/2024 11:38 AM CDT) Cholesterol, POC 172 mg/dL HDL, POC 65 mg/dL Triglycerides, POC 45 mg/dL LDL Cholesterol POC 98 mg/dL Chol/HDL Ratio, POC 1.5 Non-HDL Cholesterol, POC 107 mg/dL Cholesterol Total, POC 172 mg/dL Capillary blood 11/15/2024 1 1:38 AM CDT Mac Acosta MD POINT OF CARE TEST ORDERA BLES Final Result * (ABNORMAL) Basic metabolic panel (11/04/2024 11:12 AM BUSINESS EMPLOYMENT SPECIALIST) Glucose 102(H) 65 - 99 mg/dL [facility] Comment: Fasting reference interval For someone without known diabetes, a glucose value between 100 and 125 mg/dL is consistent with prediabetes and should be confirmed with a follow-up test. BUN 25 7 - 25 mg/dL [facility] Creatinine 0.73 0.60 - 1.00 mg/dL [facility] eGFR 88 > OR = 60 mL/min/1.7 3m2 [facility] BUN/creat ratio SEE NOTE: 6 - 22 (calc) [facility] Comment: Not Reported: BUN and Creatinine are within reference range. Sodium 141 135 - 146 mmol/L [facility] Potassium, pl 3.8 3.5 - 5.3 mmol/L [facility] Chloride 105 98 - 110 mmol/L [facility] CO2 28 20 - 32 mmol/L [facility] Calcium 9.1 8.6 - 10.4 mg/dL [facility] Blood 11/04/2024 11:1 2 AM BUSINESS EMPLOYMENT SPECIALIST 11/04/2024 11:13 AM BUSINESS EMPLOYMENT SPECIALIST Debra Cancino NURSES' AIDE LAB BLOOD ORDERABLES Annette l Result [facility] [address] [place] [address] * (ABNORMAL) Basic metabolic panel (10/04/2024 10:55 AM BUSINESS EMPLOYMENT SPECIALIST) Pathologist [facility] Glucose 93 65 - 139 mg/dL [facility] Comment: Non-fasting reference interval BUN 26(H) 7 - [...] [facility] Blood 10/04/2024 10:5 5 AM BUSINESS EMPLOYMENT SPECIALIST 10/04/2024 10:55 AM BUSINESS EMPLOYMENT SPECIALIST Narrative [facility] - 10/05/2024 4:00 AM BUSINESS EMPLOYMENT SPECIALIST FASTING:NO FASTING: NO Debra Cancino NP LAB BLOOD ORDERABLES Annette l Result [facility] [address] [place] [address] from Last 3 Months Insurance [facility] MEDICARE [facility] MEDICARE [employer] MEDICARE [employer] MEDICARE Advance Directives For more information, please contact: [phone] * Full Code (Latest Code Status on File) Date Activated Date Inactivated Comments 01/25/2023 4:20 PM 01/26/2023 4:32 PM * Full Code Date Activated Date Inactivated Comments 07/06/2022 4:07 PM 07/07/2022 3:29 PM Care Teams Director Workforce Management Relationship Specialty Start Date End Date Kyleigh Read MD PCP - General Family Medicine 12/17/21
--- OUTSIDE RECORDS SUMMARY | 2025-01-01 11:41 | XMS_ITS | Encounter Summary ---
Author Organization [facility] Healthcare Address [address] [place] [address] Care Team Providers Care Molding Machine Operator Name Role Phone Kyleigh Read MD Primary Care Provider + Encounter Details Date Type Department Care Team (Late st Contact Info) Description 11/05/2024 Results Follow-Up [facility] Medical Group Cardiology [address] [facility] 162 [facility] [address] [place] [address] Debra Cancino NP [address] [facility] [address] [place] [address] Social History Tobacco Use Types [...] on file Legal Sex Female 12:40 PM SOA INTEGRATION ARCHITECT Gender Identity Female 01/25/2022 10:56 AM CDT Sexual Orientation Not on file documented as of this encounter Plan of Treatment Not on file documented as of this encounter Visit Diagnoses Not on filedocumented in this encounter Care Teams Molding Machine Operator Relationship Specialty Start Date End Date Kyleigh Read MD PCP - General Family Medicine 12/17/21 documented as of this encounter
--- OUTSIDE RECORDS SUMMARY | 2025-01-01 11:41 | XMS_ITS | Clinical Summary ---
Author Organization [facility] [address] [facility] [address] Address [address] [place] [address] Care Team Providers Care Tail Puller Name Role Phone Kyleigh Read MD Primary [...] HFrEF, euvolemic on exam Continue GDMT per gameplay engineer Assessment & Plan (03/01/2023 10:55 AM CDT): [...] Date Resolved Date Atrial fibrillation 07/06/2022 01/26/20 Chronic anticoagulation 05/26/202201/03 Persistent atrial fibrillation 02/14/2022 01/25/2023 Assessment & Plan (07/07/2022 10:01 AM CDT): Patient with atrial fibrillation, had unsuccessful cardioversions. Now s/p ablation 07/06 - continue amiodarone 200mg, metoprolol XL 25, and eliquis - PPI x 30d - EP f/u 08/01 Lumbago 06/23/2010 01/25/2023 Encounters Date Type Department Care Team Description 12/25/2024 10:40 AM CDT Office Visit [facility] Orthopaedic Surgery [address] [facility] Advanced Medicine 6th [place] [address] [place] [address] Ling Goodwin MD Other closed displaced fracture of proximal end of right humerus, initial encounter (Primary Dx); Follow-up exam 12/25/2024 10:12 AM CDT - 12/25/2024 11:59 PM CDT Hospital Encounter [facility] [address] [place] [address] Other closed displaced fracture of proximal end of right humerus, initial encounter Discharge Disposition: Discharge to home or self care 11/15/2024 11:30 AM CDT Office Visit [facility] Medical Group Cardiology [address] [facility] [address] [place] [address] Mac Acosta MD Atrial fibrillation and flutter (HCC) (Primary Dx); Cardiac sarcoidosis; Chronic systolic congestive heart failure (HCC); Frequent PVCs; NICM (nonischemic cardiomyopathy) (HCC); Morbid obesity with BMI of 40.0-44.9, adult (HCC); Hyperlipidemia, unspecified hyperlipidemia type 11/05/2024 Results Follow-Up [facility] Medical Group Cardiology [address] [place] [address] Debra Cancino NP 10/16/2024 Orders Only [facility] Orthopaedic Surgery [address] [facility] 6th [place] [address] [place] [address] Ling Goodwin MD Other closed displaced fracture of proximal end of right humerus, initial encounter (Primary Dx) 10/07/2024 Telephone [facility] Medical Group Cardiology [address] [place] [address] Debra Cancino NP from Last 3 Months Immunizations Immunization Administration Dates Next Due Influenza, Unspecified 06/13/2022 Surgical History Surgery Date Site/Laterality Comments TONSILLECTOMY TUBAL LIGATION CARDIOVERSION x 3 CARDIAC ELECTROPHYSIOLOGY MA PPING AND ABLATION 07/05/2022 - 08/03/2022 Medical History Medical History Date Comments Arrhythmia CHF (congestive heart failure) (HCC) Atrial fibrillation and flutter (HCC) Obesity Back pain Family History Medical History Relation Name Comments Asthma Father Father Clotting disorder Father Father Heart attack Father Father Heart disease Father Father defects Mother atrial septal defect Mother Stroke Other 1 Stroke Syndrome - (Added by TW Conv) Hypertension Other 2 Hypertension - (Added by TW Conv) Heart disease Other 3 Heart Disease - (Added by TW Conv) Heart failure Sister Anesthesia problems Neg Hx Malig Hyperthermia Neg Hx Pseudochol deficiency Neg Hx Relation Name Status Comments Father Father Mother Other 1 Other 2 Other [...] on file Legal Sex Female 12:40 PM ROUTE SALES DRIVER Gender Identity Female 01/25/2022 10:56 AM CDT Sexual Orientation Not on file Obstetrics History Last Filed Vital Signs Vital Sign Reading Time Taken Comments Blood Pressure 114/70 11/15/2024 11:38 AM CDT Pulse 77 11/15/2024 11:38 AM CDT Temperature 36.3 C (97.4 F) 08/30/2024 1:47 PM ROUTE SALES DRIVER Respiratory Rate 15 08/30/2024 1:47 PM ROUTE SALES DRIVER Oxygen Saturation 97% 11/15/2024 11:38 AM CDT Inhaled Oxygen Concentration - - Weight 111.1 kg (245 lb) 11/15/2024 11:38 AM CDT Height 160 cm (5' 3 ) 11/15/2024 11:38 AM CDT Body Mass Index 43.4 11/15/2024 11:38 AM CDT Plan of Treatment Health Maintenance Due Date Last Done Comments Breast Cancer Screening-Mammogram 1955 Colon Cancer Screening-Colonoscopy 1955 Depression Screening 1953 Hepatitis C Screening 1955 Osteoporosis Screening-Bone Density Scan 1953 DTaP/Tdap/Td Vaccine (1 - Tdap) 1964 Hepatitis B Screening 1971 Pneumococcal vaccine 65+ (1 of 2 - PCV) 1972 Zoster Vaccine (1 of 2) 2003 Well Visit 65+ 2018 Fall Risk Assessment 03/06/2024 03/06/2023 Covid-19 Vaccine (4 - 2023-2 5 season) 2024 06/13/2021, 11/19/2020, 10/29/2020 Influenza Vaccine (Season Ended) 2025 06/13/2022, 06/13/2021, 06/15/2020, Additional history exists Medical Devices Implanted Type Area Winter Sports Manager Device Identifier Shelf Expiration Date Model / Serial / Lot [employer] Vascade Mvp 6-12fr Venous Closure [id number] - [id number] - [id number] Implanted:Qty: 1 on 01/25/2023 by Rohit Workman MD at [facility] Collagen Right: Femoral Vein [employer] 11/03/2024 800-612C- 10U / [id number] 13A / [id number] 13A [employer] Vascade Mvp 6-12fr Venous Closure [id number] - [id number] - [id number] Implanted:Qty: 1 on 01/25/2023 by Rohit Workman MD at [facility] Collagen Left: Femoral Vein [employer] 10/28/2024 800-612C- 10U / [id number] 02B / [id number] 02B [employer] Vascade Mvp 6-12fr Venous Closure [id number] - [id number] - [id number] Implanted:Qty: 1 on 01/25/2023 by Rohit Workman MD at [facility] Collagen Left: Femoral Vein [employer] 10/28/2024 800-612C- 10U / [id number] 02B / [id number] 02B [employer] Vascade 6/7fr Bioabsorbable Vascular System Compression Collagen [id number] - [id number] Implanted:Qty: 1 on 07/06/2022 by Rohit Workman MD at [facility] Left: Femoral Vein [employer] 03/29/2024 700-580I- 05U / / [id number] 01A [employer] Vascade Mvp 6-12fr Venous Closure [id number] - [id number] Implanted:Qty: 1 on 07/06/2022 by Derek Day DO at [facility] Left: Femoral Vein [employer] 03/21/2024 800-612C- 10U / / [id number] 26C Description:rEF #800-612C [employer] Vascade Mvp 6-12fr Venous Closure [id number] - [id number] Implanted:Qty: 1 on 07/06/2022 by Derek Day DO at [facility] Right: Femoral Vein [employer] 03/21/2024 800-612C- 10U / / [id number] 26C Description:REF: 800-612C Procedures Procedure Name Priority Date/Time Associated Diagnosis Comments XR SHOULDER RIGHT 2 OR MORE VIEWS Routine 12/25/2024 10:25 AM CDT Other closed displaced fracture of proximal end of right humerus, initial encounter POCT LIPID PANEL Routine 11/15/2024 11:3 8 AM CDT Hyperlipidemia, unspecified hyperlipidemia type BASIC METABOLIC PANEL Routine 11/04/2024 11:12 AM ROUTE SALES DRIVER Chronic systolic congestive heart failure (HCC) BASIC METABOLIC PANEL Routine 10/04/2024 10:55 AM ROUTE SALES DRIVER Chronic systolic congestive heart failure (HCC) from [...] (ABNORMAL) Basic metabolic panel (11/04/2024 11:12 AM ROUTE SALES DRIVER) Glucose 102(H) 65 - 99 mg/dL [facility] Blood 11/04/2024 11:1 2 AM ROUTE SALES DRIVER 11/04/2024 11:13 AM ROUTE SALES DRIVER us Debra Cancino TEACHER DRAMATICS LAB BLOOD ORDERABLES Annette l Result [facility] [address] [place] [address] * (ABNORMAL) Basic metabolic panel (10/04/2024 10:55 AM ROUTE SALES DRIVER) [facility] Glucose 93 65 - 139 mg/dL [facility] Blood 10/04/2024 10:5 5 AM ROUTE SALES DRIVER 10/04/2024 10:55 AM ROUTE SALES DRIVER Narrative [facility] - 10/05/2024 4:00 AM ROUTE SALES DRIVER FASTING:NO FASTING: NO us Debra Cancino TEACHER DRAMATICS LAB BLOOD ORDERABLES Annette l Result [facility] [address] [place] [address] from Last 3 Months Insurance [facility] MEDICARE [facility] MEDICARE [facility] [place] [address] [employer] MEDICARE Advance Directives For more information, please contact: [phone] * Full Code (Latest Code Status on File) Date Activated Date Inactivated Comments 01/25/2023 4:20 PM 01/26/2023 4:32 PM * Full Code Date Activated Date Inactivated Comments 07/06/2022 4:07 PM 07/07/2022 3:29 PM Care Teams Tail Puller Relationship Specialty Start Date End Date Kyleigh Read MD PCP - General Family Medicine 12/17/21
--- NOTE | 2025-01-01 12:48 | ED.GENADULT ---
HPI - General Adult General Chief complaint: Extremity Problem,Nontraumatic Stated complaint: my knee, my leg R side Time Seen by Provider: 01/01/25 11:00 History of Present Illness HPI narrative: Patient is a 69-year-old female who presents ER with right knee pain. No fevers or chills or sweats. Was walking in her leg buckled. Has tenderness over the medial aspect of the knee. No fevers or chills or sweats. No swelling. Worse with bearing weight. Radiates into the posterior calf. She is on anticoagulation. Related Data Home Medications ?Medication ?Instructions ?Recorded ?Confirmed ?Last Taken ?Type calcium 600 mg (as carbonate)-vit 1 tablet PO DAILY 12/16/21 10/22/24 03/30/22 07:00 History D3 20 mcg (800 unit) chewable tablet (Caltrate plus D) cholecalciferol (vitamin D3) 25 25 mcg PO DAILY 12/16/21 10/22/24 03/30/22 07:00 History mcg (1,000 unit) capsule vitamin B complex (B 1 tablet PO DAILY 12/16/21 10/22/24 01/27/22 History Complex-Vitamin B12 tablet) metoprolol succinate 25 mg 25 mg PO DAILY 03/04/22 10/22/24 03/30/22 History tablet,extended release 24 hr 0700 sacubitril 49 mg-valsartan 51 mg 1 tablet PO BID 05/02/22 10/22/24 Unknown History tablet (Entresto) magnesium oxide 250 mg PO DAILY 11/16/23 10/22/24 Unknown History furosemide 20 mg tablet 40 mg PO DAILY 10/22/24 10/22/24 Unknown History potassium chloride 20 mEq 20 meq PO DAILY 10/22/24 10/22/24 Unknown History tablet,extended release (K-Tab) Allergies Allergy/AdvReac Type Severity Reaction Status Date / Time contact metal agent Allergy Severe Swelling Verified 07/22/24 10:52 orange Allergy Severe Fatigued Verified 07/22/24 10:52 amiodarone AdvReac Intermediate abnormal Verified 07/22/24 10:52 thyroid function Mold (Blue) Cheese AdvReac Unknown THROAT Uncoded 07/22/24 10:52 SWELLING Review of Systems Review of Systems: All systems reviewed & are unremarkable except as noted in HPI and below Constitutional: Constitutional: Reports no additional constitutional complaints Cardiovascular: Cardiovascular: Reports no additional cardiovascular complaints Respiratory: Respiratory: Reports no additional respiratory complaints Musculoskeletal: Musculoskeletal: Reports no additional musculoskeletal complaints Neurologic: Reports system reviewed and no additional complaints, except as documented [facility] Past Medical History Medical History Tendonitis of shoulder, right Sleep disturbances Elbow pain, left Olecranon bursitis, left elbow History of cardioversion 5.. Successful uncomplicated DC cardioversion of atrial fibrillation restoring sinus rhythm using 200 joules x1 shock Abscess of left elbow Right bundle branch block Acute systolic (congestive) heart failure Fluid overload Foot fracture Elbow fracture Hand fracture Back fracture Vitamin D deficiency, unspecified Cystocele, midline Herpes zoster without complication Symptomatic menopausal or female climacteric states Surgical History Surgical History Hx of tonsillectomy (~1972) Family History Family History Mother Family history of congenital heart disease Hypertension Family history of cardiovascular disease Father Family history of cardiovascular disease Cerebrovascular accident, Onset Age: 47 Hypertension Grandparent Diabetes mellitus Sibling Hypertension Family history of cardiovascular disease Diabetes mellitus Emphysema lung Social History Social History Social History: Patient lives at home with her and is the primary caregiver for her . Her son and her daughter are her surrogate and she wishes to be a full code at this time. Smoking packs per day: 0.5 Smoking cigarettes per day: 10.0 Years smoked: 20 Smoking pack-years: 10.00 Smoking status: Former smoker Tobacco type: cigarettes Second hand tobacco smoke exposure: Yes Smoking end date: 09/04/10 Additional smoking assessment comments: smoke off and on, quit several times Alcohol intake: never Substance use: never Substance use type: does not use Do You Feel Safe in your Home?: No Lack of Transportation: YES Lack of Food: Never True Current Housing: I Have Housing Concerned About Future Housing: No Difficulty Paying Gas/Electric Bills: No Difficulty Paying for Meds: No Currently Unemployed: No Education: Master's Degree or Higher Difficulty w/ Childcare or Family Care: No Living arrangements: with family Occupation/Education: retired Additional occupation/education comments: Teacher Gender identity (if verbalized by the patient): Female Sexual Orientation (if Verbalized by the Patient): Straight or Heterosexual Spiritual care concerns: No Agree to blood products: Yes Exam Narrative: GENERAL: Well-appearing, well-nourished, and in no acute distress. HEAD: Normocephalic, atraumatic. ENT: Mucous membranes moist. EXTREMITIES: Normal range of motion. No edema. Tenderness palpation right medial joint line of the knee. No effusion. Normal flexion extension at the knee. No reproducible tenderness to the thigh that she does have pain going and posterior thigh with flexion of the knee and hip. Back: No reproducible tenderness of the L-spine or SI regions. SKIN: Warm, dry, no rash. NEURO: Alert and oriented x3. PSYCH: Normal mood and affect. Course Course Emergency Course: Likely arthritis flare. Recommend RICE. No nsaid due to anticoagulation. F/u with PCP. Will also give muscle relaxer to take with tylenol. Vital Signs Vital signs: Vital Signs Temperature 97.8 F 01/01/25 10:36 Pulse Rate 70 01/01/25 10:36 Respiratory Rate 18 01/01/25 10:36 Blood Pressure 110/80 01/01/25 10:36 Pulse Oximetry 96 01/01/25 10:36 Temperature 97.8 F 01/01/25 10:36 Pulse Rate 70 01/01/25 10:36 Respiratory Rate 18 01/01/25 10:36 Blood Pressure 110/80 01/01/25 10:36 Pulse Oximetry 96 01/01/25 10:36 Medical Decision Making Vital Signs Vital Signs: Vital Signs Temperature 97.8 F 01/01/25 10:36 Pulse Rate 70 01/01/25 10:36 Respiratory Rate 18 01/01/25 10:36 Blood Pressure 110/80 01/01/25 10:36 Pulse Oximetry 96 01/01/25 10:36 Temperature 97.8 F 01/01/25 10:36 Pulse Rate 70 01/01/25 10:36 Respiratory Rate 18 01/01/25 10:36 Blood Pressure 110/80 01/01/25 10:36 Pulse Oximetry 96 01/01/25 10:36 Imaging Data Radiologist's impression: ITS Impressions Knee X-Ray 01/01/25 12:00 Impression: Mild tricompartmental degenerative change. Discharge Plan Discharge Clinical Impression: Knee pain Patient Disposition: Home Condition: Stable Instructions: Knee Pain (ED), P.R.I.C.E. Treatment (ED) Additional Instructions: Return to the ER if you have worsening pain, you suffer new injury, you have chest pain with shortness of breath, or you have additional concerns. Take tylenol for pain. You will be given a muscle relaxer to help with discomfort. Patient Language: Maltese Prescriptions: New tizanidine 2 mg capsule 2 mg PO Q8H PRN (Reason: muscle spasticity) Qty: 14 0RF No Action Eliquis 5 mg tablet 5 mg PO Q12HR Qty: 60 0RF Caltrate 600 plus D 600 mg-20 mcg (800 unit) tablet,chewable 1 tablet PO DAILY vitamin B complex [B Complex-Vitamin B12] Tablet 1 tablet PO DAILY cholecalciferol (vitamin D3) 25 mcg (1,000 unit) capsule 25 mcg PO DAILY metoprolol succinate 25 mg tablet extended release 24 hr 25 mg PO DAILY magnesium oxide 250 mg magnesium tablet 250 mg PO DAILY furosemide 20 mg tablet 40 mg PO DAILY potassium chloride [K-Tab] 20 mEq tablet extended release 20 meq PO DAILY Entresto 49-51 mg Tablet 1 tablet PO BID Zepbound 2.5 mg/0.5 mL pen injector 2.5 mg subcut WEEKLY Qty: 2 2RF Zepbound 5 mg/0.5 mL pen injector 5 mg subcut WEEKLY Qty: 2 6RF Rx Instructions: BMI 44 atorvastatin 20 mg tablet See Rx Instructions .ROUTE .COMPLEX Qty: 90 1RF Dose Instruction: TAKE 1 TABLET BY MOUTH EVERY DAY AT BEDTIME Rx Instructions: TAKE 1 TABLET BY MOUTH EVERY DAY AT BEDTIME Follow-up/Referrals: Kyleigh Read MD [Primary Care Provider] - 1 Week
[2025-01-01 13:11] VITALS: BP 120/85; PULSE 60; RESP 18; TEMP 36.6; O2SAT 98
--- OUTSIDE RECORDS SUMMARY | 2025-01-01 13:11 | XMS_ITS | Clinical Summary ---
Author Organization [facility] [place] [address] [facility] [address] Address [address] [place] [address] Care Team Providers Care Hides And Skins Colorer Name Role Phone Kyleigh Read MD Primary [...] HFrEF, euvolemic on exam Continue GDMT per drapery rod assembler Assessment & Plan (03/01/2023 10:55 AM CDT): [...] Description 12/25/2024 10:40 AM CDT Office Visit [facility] Orthopaedic Surgery [address] [facility] Advanced Medicine [address]th [place] [address] [place] [address] Ling Goodwin MD Other closed displaced fracture of proximal end of right humerus, initial encounter (Primary Dx); Follow-up exam 12/25/2024 10:12 AM CDT - 12/25/2024 11:59 PM CDT Hospital Encounter [facility] [address] [place] [address] Other closed displaced fracture of proximal end of right humerus, initial encounter Discharge Disposition: Discharge to home or self care 11/15/2024 11:30 AM CDT Office Visit [facility] Medical Group Cardiology [address] [facility] [address] [place] [address] Mac Acosta MD Atrial fibrillation and flutter (HCC) (Primary Dx); Cardiac sarcoidosis; Chronic systolic congestive heart failure (HCC); Frequent PVCs; NICM (nonischemic cardiomyopathy) (HCC); Morbid obesity with BMI of 40.0-44.9, adult (HCC); Hyperlipidemia, unspecified hyperlipidemia type 11/05/2024 Results Follow-Up [facility] Medical Group Cardiology [address] [place] [address] Debra Cancino NP 10/16/2024 Orders Only [facility] Orthopaedic Surgery [address] [facility] 6th [place] [address] [place] [id number] Ling Goodwin MD Other closed displaced fracture of proximal end of right humerus, initial encounter (Primary Dx) 10/07/2024 Telephone [facility] Medical Group Cardiology [address] [place] [address] Debra Cancino NP from Last [...] on file Legal Sex Female 12:40 PM DRESSMAKER OR TAILOR Gender Identity Female 01/25/2022 10:56 AM CDT Sexual Orientation Not on file Obstetrics History Last Filed Vital Signs Vital Sign Reading Time Taken Comments Blood Pressure 114/70 11/15/2024 11:38 AM CDT Pulse 77 11/15/2024 11:38 AM CDT Temperature 36.3 C (97.4 F) 08/30/2024 1:47 PM DRESSMAKER OR TAILOR Respiratory Rate 15 08/30/2024 1:47 PM DRESSMAKER OR TAILOR Oxygen Saturation 97% 11/15/2024 11:38 AM CDT [...] history exists Medical Devices Implanted Type Area Compounding Assistant Device Identifier Shelf Expiration Date Model / Serial / Lot [employer] Vascade Mvp 6-12fr Venous Closure [id number] - [id number] - [id number] Implanted:Qty: 1 on 01/25/2023 by Rohit Workman MD at [facility] Collagen Right: Femoral Vein [employer] 11/03/2024 800-612C- 10U / [id number] / [id number] [id number] [employer] Vascade Mvp 6-12fr Venous Closure [id number] - [id number] - [id number] Implanted:Qty: 1 on 01/25/2023 by Rohit Workman MD at [facility] Collagen Left: Femoral Vein [employer] 10/28/2024 800-612C- 10U / [id number] 02B / [id number] [id number] [employer] Vascade Mvp 6-12fr Venous Closure [id number] - [id number] - [id number] Implanted:Qty: 1 on 01/25/2023 by Rohit Workman MD at [facility] Collagen Left: Femoral Vein [employer] 10/28/2024 800-612C- 10U / [id number] 02B / [id number] 02B [employer] Vascade 6/7fr Bioabsorbable Vascular System Compression Collagen [id number] - [id number] Implanted:Qty: 1 on 07/06/2022 by Rohit Workman MD at [facility] Left: Femoral Vein [employer] 03/29/2024 700-580I- 05U / / [id number] 01A [employer] Vascade Mvp 6-12fr Venous Closure [id number] - [id number] Implanted:Qty: 1 on 07/06/2022 by Derek Day DO at [facility] Left: Femoral Vein [employer] 03/21/2024 800-612C- 10U / / [id number] 26C Description:rEF #800-612C [employer] Vascade Mvp 6-12fr Venous Closure [id number] - [id number] Implanted:Qty: 1 on 07/06/2022 by Derek Day DO at [facility] Right: Femoral Vein [employer] 03/21/2024 800-612C- 10U / / [id number] 26C Description:REF: 800-612C Procedures Procedure Name Priority Date/Time Associated Diagnosis Comments XR SHOULDER RIGHT 2 OR MORE VIEWS Routine 12/25/2024 10:25 AM CDT Other closed displaced fracture of proximal end of right humerus, initial encounter POCT LIPID PANEL Routine 11/15/2024 11:3 8 AM CDT Hyperlipidemia, unspecified hyperlipidemia type BASIC METABOLIC PANEL Routine 11/04/2024 11:12 AM DRESSMAKER OR TAILOR Chronic systolic congestive heart failure (HCC) BASIC METABOLIC PANEL Routine 10/04/2024 10:55 AM DRESSMAKER OR TAILOR Chronic systolic congestive heart failure (HCC) from [...] (ABNORMAL) Basic metabolic panel (11/04/2024 11:12 AM DRESSMAKER OR TAILOR) Glucose 102(H) 65 - 99 mg/dL [facility] Blood 11/04/2024 11:1 2 AM DRESSMAKER OR TAILOR 11/04/2024 11:13 AM DRESSMAKER OR TAILOR us Debra Cancino PURCHASING SPECIALIST LAB BLOOD ORDERABLES Annette l Result [facility] [address] [place] [address] * (ABNORMAL) Basic metabolic panel (10/04/2024 10:55 AM DRESSMAKER OR TAILOR) [facility] Glucose 93 65 - 139 mg/dL [facility] [...] [facility] Blood 10/04/2024 10:5 5 AM DRESSMAKER OR TAILOR 10/04/2024 10:55 AM DRESSMAKER OR TAILOR Narrative [facility] - 10/05/2024 4:00 AM DRESSMAKER OR TAILOR FASTING:NO FASTING: NO us Debra Cancino PURCHASING SPECIALIST LAB BLOOD ORDERABLES Annette l Result [facility] [employer] [address] [place] [address] from Last 3 Months Insurance [facility] MEDICARE [facility] MEDICARE [facility] [place] [address] [employer] MEDICARE Advance Directives For more information, please contact: [phone] * Full Code (Latest Code Status on File) Date Activated Date Inactivated Comments 01/25/2023 4:20 PM 01/26/2023 4:32 PM * Full Code Date Activated Date Inactivated Comments 07/06/2022 4:07 PM 07/07/2022 3:29 PM Care Teams Hides And Skins Colorer Relationship Specialty Start Date End Date Kyleigh Read MD PCP - General Family Medicine 12/17/21
--- OUTSIDE RECORDS SUMMARY | 2025-01-01 13:11 | XMS_ITS | Encounter Summary ---
Author Organization [facility] Healthcare Address [address] [place] [address] Care Team Providers Care Cash Poster Name Role Phone Kyleigh Read MD Primary Care Provider + Encounter Details Date Type Department Care Team (Late st Contact Info) Description 11/05/2024 Results Follow-Up [facility] Medical Group Cardiology [address] [facility] [address] [facility] [address] [place] [address] Debra Cancino NP [address] [facility] [address] [place] [address] Social History Tobacco Use Types [...] on file Legal Sex Female 12:40 PM TRAILER RENTAL CLERK Gender Identity Female 01/25/2022 10:56 AM CDT Sexual Orientation Not on file documented as of this encounter Plan of Treatment Not on file documented as of this encounter Visit Diagnoses Not on filedocumented in this encounter Care Teams Cash Poster Relationship Specialty Start Date End Date Kyleigh Read MD PCP - General Family Medicine 12/17/21 documented as of this encounter
--- OUTSIDE RECORDS SUMMARY | 2025-01-01 13:11 | XMS_ITS | Referral Summary ---
Author Organization [facility] [place] [address] [facility] [address] Address [address] [place] [address] Care Team Providers Care Esthetician/Owner Name Role Phone Kyleigh Read MD Primary Care Provider + Encounters Date Type Department Care Team Description 12/25/2024 10:12 AM CDT - 12/25/2024 11:59 PM CDT Hospital Encounter [facility] [address] [place] [address] Other closed displaced fracture of proximal end of right humerus, initial encounter Discharge Disposition: Discharge to home or self care 12/25/2024 10:40 AM CDT Office Visit [facility] Orthopaedic Surgery [address] [facility] Advanced Medicine 6th [place] [address] [place] [address] Ling Goodwin MD Other closed displaced fracture of proximal end of right humerus, initial encounter (Primary Dx); Follow-up exam 11/15/2024 11:30 AM CDT Office Visit [facility] Medical Group Cardiology [address] [facility] [address] [place] [address] Mac Acosta MD Atrial fibrillation and flutter (HCC) (Primary Dx); Cardiac sarcoidosis; Chronic systolic congestive heart failure (HCC); Frequent PVCs; NICM (nonischemic cardiomyopathy) (HCC); Morbid obesity with BMI of 40.0-44.9, adult (HCC); Hyperlipidemia, unspecified hyperlipidemia type 11/05/2024 Results Follow-Up [facility] Medical [facility] Cardiology [address] [place] [address] Debra Cancino NP 10/16/2024 Orders Only [facility] Orthopaedic Surgery [address] [facility] 6th [place] [address] [place] [address] Ling Goodwin MD Other closed displaced fracture of proximal end of right humerus, initial encounter (Primary Dx) 10/07/2024 Telephone [facility] Medical [facility] Cardiology [address] [place] [address] Debra Cancino NP from Last 3 Months [...] HFrEF, euvolemic on exam Continue GDMT per deputy treasurer Assessment & Plan (03/01/2023 10:55 AM CDT): [...] on file Legal Sex Female 12:40 PM STRIKE PLANNING APPLICATIONS Gender Identity Female 01/25/2022 10:56 AM CDT Sexual Orientation Not on file Last Filed Vital Signs Vital Sign Reading Time Taken Comments Blood Pressure 114/70 11/15/2024 11:38 AM CDT Pulse 77 11/15/2024 11:38 AM CDT Temperature 36.3 C (97.4 F) 08/30/2024 1:47 PM STRIKE PLANNING APPLICATIONS Respiratory Rate 15 08/30/2024 1:47 PM STRIKE PLANNING APPLICATIONS Oxygen Saturation 97% 11/15/2024 11:38 AM CDT Inhaled Oxygen Concentration - - Weight 111.1 kg (245 lb) 11/15/2024 11:38 AM CDT Height 160 cm (5' 3 ) 11/15/2024 11:38 AM CDT Body Mass Index 43.4 11/15/2024 11:38 AM CDT Plan of Treatment Not on file Medical Devices Implanted Type Area Fitter Type Bar And Segment Device Identifier Shelf Expiration Date Model / Serial / Lot [employer] Vascade Mvp 6-12fr Venous Closure [id number] - [id number] - [id number] Implanted:Qty: 1 on 01/25/2023 by Rohit Workman MD at [facility] Collagen Right: Femoral Vein [employer] 11/03/2024 800-612C- 10U / [id number] / [id number] 13A [employer] Vascade Mvp 6-12fr Venous Closure [id number] - [id number] - [id number] Implanted:Qty: 1 on 01/25/2023 by Rohit Workman MD at [facility] Collagen Left: Femoral Vein [employer] 10/28/2024 800-612C- 10U / [id number] 02B / [id number] 02B [employer] Vascade Mvp 6-12fr Venous Closure [id number] - [id number] - [id number] Implanted:Qty: 1 on 01/25/2023 by Rohit Workman MD at [facility] Collagen Left: Femoral Vein [employer] 10/28/2024 800-612C- 10U / [id number] 02B / [id number] 02B [employer] Vascade 6/7fr Bioabsorbable Vascular System Compression Collagen [id number] - [id number] Implanted:Qty: 1 on 07/06/2022 by Rohit Workman MD at [facility] Left: Femoral Vein [employer] 03/29/2024 700-580I- 05U / / [id number] 01A [employer] Vascade Mvp 6-12fr Venous Closure [id number] - [id number] Implanted:Qty: 1 on 07/06/2022 by Derek Day DO at [facility] Left: Femoral Vein [employer] 03/21/2024 800-612C- 10U / / [id number] 26C Description:rEF #[id number] [employer] Vascade Mvp 6-12fr Venous Closure [id number] - [id number] Implanted:Qty: 1 on 07/06/2022 by Derek Day DO at [facility] Right: Femoral Vein [employer] 03/21/2024 800-612C- 10U / / [id number] 26C Description:REF: 800-612C Procedures Procedure Name Priority Date/Time Associated Diagnosis Comments XR SHOULDER RIGHT 2 OR MORE VIEWS Routine 12/25/2024 10:25 AM CDT Other closed displaced fracture of proximal end of right humerus, initial encounter POCT LIPID PANEL Routine 11/15/2024 11:3 8 AM CDT Hyperlipidemia, unspecified hyperlipidemia type BASIC METABOLIC PANEL Routine 11/04/2024 11:12 AM STRIKE PLANNING APPLICATIONS Chronic systolic congestive heart failure (HCC) BASIC METABOLIC PANEL Routine 10/04/2024 10:55 AM STRIKE PLANNING APPLICATIONS Chronic systolic congestive heart failure (HCC) from [...] (ABNORMAL) Basic metabolic panel (11/04/2024 11:12 AM STRIKE PLANNING APPLICATIONS) Glucose 102(H) 65 - 99 mg/dL [facility] Blood 11/04/2024 11:1 2 AM STRIKE PLANNING APPLICATIONS 11/04/2024 11:13 AM STRIKE PLANNING APPLICATIONS Debra Cancino SPRAY PAINTER HELPER LAB BLOOD ORDERABLES Annette l Result [facility] [address] [place] [address] * (ABNORMAL) Basic metabolic panel (10/04/2024 10:55 AM STRIKE PLANNING APPLICATIONS) Pathologist [facility] Glucose 93 65 - 139 mg/dL [facility] [...] [facility] Blood 10/04/2024 10:5 5 AM STRIKE PLANNING APPLICATIONS 10/04/2024 10:55 AM STRIKE PLANNING APPLICATIONS Narrative [facility] - 10/05/2024 4:00 AM STRIKE PLANNING APPLICATIONS FASTING:NO FASTING: NO Debra Cancino NP LAB BLOOD ORDERABLES Annette l Result [facility] [address] [place] [address] from Last 3 Months Insurance [facility] MEDICARE [facility] MEDICARE [employer] MEDICARE [employer] [facility] Address: [facility] [id number] [place] [phone] Advance Directives For more information, please contact: [phone] * Full Code (Latest Code Status on File) Date Activated Date Inactivated Comments 01/25/2023 4:20 PM 01/26/2023 4:32 PM * Full Code Date Activated Date Inactivated Comments 07/06/2022 4:07 PM 07/07/2022 3:29 PM Care Teams Esthetician/Owner Relationship Specialty Start Date End Date Kyleigh Read MD PCP - General Family Medicine 12/17/21
== END 2025-01-01 13:12 | disposition home or self-care (01) ==
PROVIDERS: Emergency Provider Emergency Medicine; PCP Family Medicine
DX: M25.561 Pain in right knee (principal); I50.20 Unspecified systolic (congestive) heart failure; E55.9 Vitamin D deficiency, unspecified; Z87.891 Personal history of nicotine dependence; Z79.899 Other long term (current) drug therapy; Z79.01 Long term (current) use of anticoagulants
CPT/HCPCS: 73562; 99283

== ENCOUNTER 2025-01-09 14:28 | Outpatient (CLI) | payer MEDICARE, SELFPAY ==
--- NOTE | ~2025-01-09 | MM_ITS ---
EXAMINATION: MM screening philippe BI w kary HISTORY: Screening TECHNIQUE: Craniocaudal and mediolateral oblique 3-D tomosynthesis images were obtained and synthetic 2-D images were generated. CAD analysis was submitted and interpreted. COMPARISON: Comparison to multiple prior studies sequentially, with oldest reviewed study dated 04/18. BREAST PARENCHYMAL COMPOSITION: Not Dense: The breasts are almost entirely fatty. FINDINGS: There is no evidence of suspicious mass, calcification, or architectural distortion to sugg est malignancy in either breast. There has been no suspicious interval change. IMPRESSION: 1. No mammographic evidence of malignancy. 2. Recommend routine screening mammography in one year. BI-RADS Category 1: Negative Reviewed, dictated and finalized at location A.
--- OUTSIDE RECORDS SUMMARY | 2025-01-09 14:31 | XMS_ITS | Referral Summary ---
Author Organization [facility] [address] [facility] [address] Address [address] [place] [address] Care Team Providers Care Editorial Director Name Role Phone Kyleigh Read MD Primary Care Provider + Encounters Date Type Department Care Team Description 01/03/2025 Orders Only [facility] Orthopaedic Surgery [address] [place] [address] Advanced Medicine 6th [place] [address] [place] [address] Ling Goodwin MD Other closed displaced fracture of proximal end of right humerus, initial encounter (Primary Dx) 12/25/2024 10:12 AM CDT - 12/25/2024 11:59 PM CDT Hospital Encounter [facility] [address] [place] [address] Other closed displaced fracture of proximal end of right humerus, initial encounter Discharge Disposition: Discharge to home or self care 12/25/2024 10:40 AM CDT Office Visit [facility] Orthopaedic Surgery [address] [place] [address] Advanced Medicine 6th [place] [address] [place] [address] Ling Goodwin MD Other closed displaced fracture of proximal end of right humerus, initial encounter (Primary Dx); Follow-up exam 11/15/2024 11:30 AM CDT Office Visit [facility] Cardiology [address] [place] [address] Mac Acosta MD Atrial fibrillation and flutter (HCC) (Primary Dx); Cardiac sarcoidosis; Chronic systolic congestive heart failure (HCC); Frequent PVCs; NICM (nonischemic cardiomyopathy) (HCC); Morbid obesity with BMI of 40.0-44.9, adult (HCC); Hyperlipidemia, unspecified hyperlipidemia type 11/05/2024 Results Follow-Up [facility]iology [address] [place] [address] Debra Cancino NP 10/16/2024 Orders Only [facility] Orthopaedic Surgery [address] [facility] Medicine 6th [place] [address] [place] [address] Ling Goodwin MD Other closed displaced fracture of proximal end of right humerus, initial encounter (Primary Dx) from Last 3 Months Allergies Active Allergy [...] HFrEF, euvolemic on exam Continue GDMT per screw machine operator single spindle Assessment & Plan (03/01/2023 10:55 AM CDT): [...] on file Legal Sex Female 12:40 PM OPEN DIE INSPECTOR Gender Identity Female 01/25/2022 10:56 AM CDT Sexual Orientation Not on file Last Filed Vital Signs Vital Sign Reading Time Taken Comments Blood Pressure 114/70 11/15/2024 11:38 AM CDT Pulse 77 11/15/2024 11:38 AM CDT Temperature 36.3 C (97.4 F) 08/30/2024 1:47 PM OPEN DIE INSPECTOR Respiratory Rate 15 08/30/2024 1:47 PM OPEN DIE INSPECTOR Oxygen Saturation 97% 11/15/2024 11:38 AM CDT Inhaled Oxygen Concentration - - Weight 111.1 kg (245 lb) 11/15/2024 11:38 AM CDT Height 160 cm (5' 3 ) 11/15/2024 11:38 AM CDT Body Mass Index 43.4 11/15/2024 11:38 AM CDT Plan of Treatment Not on file Medical Devices Implanted Type Area Payroll Bookkeeper Device Identifier Shelf Expiration Date Model / Serial / Lot [employer] Vascade Mvp 6-12fr Venous Closure [id number] - [id number] - [id number] Implanted:Qty: 1 on 01/25/2023 by Rohit Workman MD at [facility] Collagen Right: Femoral Vein [employer] 11/03/2024 800-612C- 10U / [id number] / [id number] [id number] [employer] Vascade Mvp 6-12fr Venous Closure [id number] - [id number] - [id number] Implanted:Qty: 1 on 01/25/2023 by Rohit Workman MD at [facility] Collagen Left: Femoral Vein [employer] 10/28/2024 800-612C- 10U / [id number] [id number] / [id number] [id number] [employer] Vascade Mvp 6-12fr Venous Closure [id number] - [id number] - [id number] Implanted:Qty: 1 on 01/25/2023 by Rohit Workman MD at [facility] Collagen Left: Femoral Vein [employer] 10/28/2024 800-612C- 10U / [id number] 02B / [id number] 02B [employer] Vascade 6/7fr Bioabsorbable Vascular System Compression Collagen [id number] - [id number] Implanted:Qty: 1 on 07/06/2022 by Rohit Workman MD at [facility] Left: Femoral Vein [employer] 03/29/2024 700-580I- 05U / / [id number] 01A [employer] Vascade Mvp 6-12fr Venous Closure [id number] - [id number] Implanted:Qty: 1 on 07/06/2022 by Derek Day DO at [facility] Left: Femoral Vein [employer] 03/21/2024 800-612C- 10U / / [id number] 26C Description:rEF #800-612C [employer] Vascade Mvp 6-12fr Venous Closure [id number] - [id number] Implanted:Qty: 1 on 07/06/2022 by Derek Day DO at [facility] Right: Femoral Vein [employer] 03/21/2024 800-612C- 10U / / [id number] 26C Description:REF: 800-612C Procedures Procedure Name Priority Date/Time Associated Diagnosis Comments XR SHOULDER RIGHT 2 OR MORE VIEWS Routine 12/25/2024 10:25 AM CDT Other closed displaced fracture of proximal end of right humerus, initial encounter POCT LIPID PANEL Routine 11/15/2024 11:3 8 AM CDT Hyperlipidemia, unspecified hyperlipidemia type BASIC METABOLIC PANEL Routine 11/04/2024 11:12 AM OPEN DIE INSPECTOR Chronic systolic congestive heart failure (HCC) from [...] (ABNORMAL) Basic metabolic panel (11/04/2024 11:12 AM OPEN DIE INSPECTOR) Glucose 102(H) 65 - 99 mg/dL [facility] Blood 11/04/2024 11:1 2 AM OPEN DIE INSPECTOR 11/04/2024 11:13 AM OPEN DIE INSPECTOR us Debra Cancino NP LAB BLOOD ORDERABLES Annette l Result [facility] [address] [place] [address] from Last 3 Months Insurance AETNA MEDICARE AETNA MEDICARE [facility] MEDICARE [facility] MEDICARE Advance Directives For more information, please contact: [phone] * Full Code (Latest Code Status on File) Date Activated Date Inactivated Comments 01/25/2023 4:20 PM 01/26/2023 4:32 PM * Full Code Date Activated Date Inactivated Comments 07/06/2022 4:07 PM 07/07/2022 3:29 PM Care Teams Editorial Director Relationship Specialty Start Date End Date Kyleigh Read MD PCP - General Family Medicine 12/17/21
--- OUTSIDE RECORDS SUMMARY | 2025-01-09 14:31 | XMS_ITS | Clinical Summary ---
Author Organization [facility] [address] [facility] [address] Address [address] [place] [address] Care Team Providers Care Pug Mill Operator Name Role Phone Kyleigh Read MD [...] HFrEF, euvolemic on exam Continue GDMT per masking machine feeder Assessment & Plan (03/01/2023 10:55 AM CDT): [...] Department Care Team Description 01/03/2025 Orders Only [facility] Orthopaedic Surgery [address] [place] [address] Advanced Medicine 6th [place] [address] [place] [address] Ling Goodwin MD Other closed displaced fracture of proximal end of right humerus, initial encounter (Primary Dx) 12/25/2024 10:40 AM CDT Office Visit [facility] Orthopaedic Surgery [address] [place] [address] Advanced Medicine 6th [place] [address] [place] [address] Ling Goodwin MD Other closed displaced fracture of proximal end of right humerus, initial encounter (Primary Dx); Follow-up exam 12/25/2024 10:12 AM CDT - 12/25/2024 11:59 PM CDT Hospital Encounter [facility] [address] [place] [address] Other closed displaced fracture of proximal end of right humerus, initial encounter Discharge Disposition: Discharge to home or self care 11/15/2024 11:30 AM CDT Office Visit [facility] Card[facility] [address] [place] [address] Mac Acosta MD Atrial fibrillation and flutter (HCC) (Primary Dx); Cardiac sarcoidosis; Chronic systolic congestive heart failure (HCC); Frequent PVCs; NICM (nonischemic cardiomyopathy) (HCC); Morbid obesity with BMI of 40.0-44.9, adult (HCC); Hyperlipidemia, unspecified hyperlipidemia type 11/05/2024 Results Follow-Up [facility] [address] [place] [address] Debra Cancino NP 10/16/2024 Orders Only [facility] Orthopaedic Surgery [address] [facility] Medicine 6th [place] [address] [place] [address] Ling Goodwin MD Other closed displaced fracture of proximal end of right humerus, initial encounter (Primary Dx) from Last 3 Months Immunizations Immunization Administration [...] on file Legal Sex Female 12:40 PM CORRECTIVE AND MANUAL ARTS THERAPIST Gender Identity Female 01/25/2022 10:56 AM CDT Sexual Orientation Not on file Obstetrics History Last Filed Vital Signs Vital Sign Reading Time Taken Comments Blood Pressure 114/70 11/15/2024 11:38 AM CDT Pulse 77 11/15/2024 11:38 AM CDT Temperature 36.3 C (97.4 F) 08/30/2024 1:47 PM CORRECTIVE AND MANUAL ARTS THERAPIST Respiratory Rate 15 08/30/2024 1:47 PM CORRECTIVE AND MANUAL ARTS THERAPIST Oxygen Saturation 97% 11/15/2024 11:38 AM CDT [...] history exists Medical Devices Implanted Type Area Fuse Assembler Device Identifier Shelf Expiration Date Model / Serial / Lot [employer] Vascade Mvp 6-12fr Venous Closure [id number] - [id number] - [id number] Implanted:Qty: 1 on 01/25/2023 by Rohit Workman MD at [facility] Collagen Right: Femoral Vein [employer] 11/03/2024 800-612C- 10U / [id number] 13A / [id number] 13A [employer] Vascade Mvp 6-12fr Venous Closure [id number] - [id number] - [id number] Implanted:Qty: 1 on 01/25/2023 by Rohit Workman MD at [facility] Collagen Left: Femoral Vein [employer] 10/28/2024 800-612C- 10U / [id number] 02B / [id number] 02B [employer] Vascade Mvp 6-12fr Venous Closure [id number] - [id number] - [id number] Implanted:Qty: 1 on 01/25/2023 by Rohit Workman MD at [facility] Collagen Left: Femoral Vein [employer] 10/28/2024 800-612C- 10U / [id number] 02B / [id number] 02B [employer] Vascade 6/7fr Bioabsorbable Vascular System Compression Collagen [id number] - [id number] Implanted:Qty: 1 on 07/06/2022 by Rohit Workman MD at [facility] Left: Femoral Vein [employer] 03/29/2024 700-580I- 05U / / [id number] 01A [employer] Vascade Mvp 6-12fr Venous Closure [id number] - [id number] Implanted:Qty: 1 on 07/06/2022 by Derek Day DO at [facility] Left: Femoral Vein [employer] 03/21/2024 800-612C- 10U / / [id number] 26C Description:rEF #800-612C [employer] Vascade Mvp 6-12fr Venous Closure [id number] - [id number] Implanted:Qty: 1 on 07/06/2022 by Derek Day DO at [facility] Right: Femoral Vein [employer] 03/21/2024 800-612C- 10U / / [id number] 26C Description:REF: 800-612C Procedures Procedure Name Priority Date/Time Associated Diagnosis Comments XR SHOULDER RIGHT 2 OR MORE VIEWS Routine 12/25/2024 10:25 AM CDT Other closed displaced fracture of proximal end of right humerus, initial encounter POCT LIPID PANEL Routine 11/15/2024 11:3 8 AM CDT Hyperlipidemia, unspecified hyperlipidemia type BASIC METABOLIC PANEL Routine 11/04/2024 11:12 AM CORRECTIVE AND MANUAL ARTS THERAPIST Chronic systolic congestive heart failure (HCC) from [...] (ABNORMAL) Basic metabolic panel (11/04/2024 11:12 AM CORRECTIVE AND MANUAL ARTS THERAPIST) Glucose 102(H) 65 - 99 mg/dL [facility] 11/04/2024 11:1 2 AM CORRECTIVE AND MANUAL ARTS THERAPIST 11/04/2024 11:13 AM CORRECTIVE AND MANUAL ARTS THERAPIST us Debra Cancino NP LAB BLOOD ORDERABLES Annette l Result [facility] [address], [place] [address] from Last 3 Months Insurance AETNA MEDICARE AETNA MEDICARE [facility] MEDICARE [facility] MEDICARE Advance Directives For more information, please contact: [phone] * Full Code (Latest Code Status on File) Date Activated Date Inactivated Comments 01/25/2023 4:20 PM 01/26/2023 4:32 PM * Full Code Date Activated Date Inactivated Comments 07/06/2022 4:07 PM 07/07/2022 3:29 PM Care Teams Pug Mill Operator Relationship Specialty Start Date End Date Kyleigh Read MD PCP - General Family Medicine 12/17/21
== END 2025-01-09 14:29 | disposition home or self-care (01) ==
PROVIDERS: PCP Family Medicine; Visit Provider Family Medicine
DX: Z12.31 Encounter for screening mammogram for malignant neoplasm of breast (principal)
CPT/HCPCS: 77063; 77067

== ENCOUNTER 2025-01-26 09:59 | Emergency (ER) | payer MEDICARE, SELFPAY ==
--- NOTE | ~2025-01-26 | XR_ITS ---
CHEST RADIOGRAPH, PA AND LATERAL CLINICAL HISTORY: cough, SOB . COMPARISON: 07/12/2024 TECHNIQUE: PA and lateral views of the chest. FINDINGS Opacification is present along the right heart border, felt to be due to overlying soft tissues rathe r than intrinsic pulmonary disease. The remainder of the cardiomediastinal silhouette is otherwise unremarkable. The lungs are clear. IMPRESSION: No focal infiltrate or effusion. Reviewed, dictated and finalized at location A.
[2025-01-26 10:11] VITALS: BP 107/85; PULSE 103; RESP 16; TEMP 37.1; O2SAT 96
--- NOTE | 2025-01-26 10:23 | ED_ITS ---
HPI - URI/Sore Throat General Chief Complaint: Upper Respiratory Infection Stated Complaint: Cough/Headache Time Seen by Provider: 01/26/25 10:23 Source: patient Mode of arrival: ambulatory Limitations: no limitations History of Present Illness HPI Narrative: 69-year-old female presents with complaint of cough, chest congestion, fatigue for 2 days. Started Mucinex yesterday. Afebrile. Has headache today. Has not taking any btdc-wua-ymecmrv pain medications to treat headache. Reports mild sore throat with congestion. Had negative COVID testing yesterday. No chest pain or shortness of breath. All systems reviewed and negative except as noted above. Related Data Home Medications ?Medication ?Instructions ?Recorded ?Confirmed ?Last Taken ?Type calcium 600 mg (as carbonate)-vit 1 tablet PO DAILY 12/16/21 01/05/25 03/30/22 07:00 History D3 20 mcg (800 unit) chewable tablet (Caltrate plus D) cholecalciferol (vitamin D3) 25 25 mcg PO DAILY 12/16/21 01/05/25 03/30/22 07:00 History mcg (1,000 unit) capsule vitamin B complex (B 1 tablet PO DAILY 12/16/21 01/05/25 01/27/22 History Complex-Vitamin B12 tablet) metoprolol succinate 25 mg 25 mg PO DAILY 03/04/22 01/05/25 03/30/22 History tablet,extended release 24 hr 0700 sacubitril 49 mg-valsartan 51 mg 1 tablet PO BID 05/02/22 01/05/25 Unknown Hi story tablet (Entresto) magnesium oxide 250 mg PO DAILY 11/16/23 01/05/25 Unknown History furosemide 20 mg tablet 40 mg PO DAILY 10/22/24 01/05/25 Unknown History potassium chloride 20 mEq meq PO 01/03/25 01/05/25 Unknown History tablet,extended release(part/cryst) Allergies Allergy/AdvReac Type Severity Reaction Status Date / Time contact metal agent Allergy Severe Swelling Verified 01/05/25 18:24 orange Allergy Severe Fatigued Verified 01/05/25 18:24 amiodarone AdvReac Intermediate abnormal Verified 01/05/25 18:24 thyroid function Mold (Blue) Cheese AdvReac Unknown THROAT Uncoded 01/05/25 18:24 SWELLING Review of Systems Review of Systems: CONSTITUTIONAL: Denies fever, chills, or sweats. Reports fatigue. EYES: Denies visual changes, redness, or discharge. ENT: Reports rhinorrhea, congestion, sore throat. Denies otalgia. CARDIOVASCULAR: Denies chest pain, palpitations, or edema. RESPIRATORY: Reports cough. Denies dyspnea. GASTROINTESTINAL: Denies abdominal pain, nausea, vomiting, or diarrhea. GENITOURINARY: Denies dysuria or hematuria. SKIN: Denies rash or itching. MUSCULOSKELETAL: Denies back pain, joint pain, or myalgia. NEUROLOGIC: Denies headache, numbness, or weakness. PSYCHIATRIC: Denies anxiety or depression. All other systems reviewed are negative, except as documented in HPI. [facility] Past Medical History Medical History Tendonitis of shoulder, right Sleep disturbances Elbow pain, left Olecranon bursitis, left elbow History of cardioversion 5.. Successful uncomplicated DC cardioversion of atrial fibrillation restoring sinus rhythm using 200 joules x1 shock Abscess of left elbow Right bundle branch block Acute systolic (congestive) heart failure Fluid overload Foot fracture Elbow fracture Hand fracture Back fracture Vitamin D deficiency, unspecified Cystocele, midline Herpes zoster without complication Symptomatic menopausal or female climacteric states Surgical History Surgical History Hx of tonsillectomy (~1972) Family History Family History Mother Family history of congenital heart disease Hypertension Family history of cardiovascular disease Father Family history of cardiovascular disease Cerebrovascular accident, Onset Age: 47 Hypertension Grandparent Diabetes mellitus Sibling Hypertension Family history of cardiovascular disease Diabetes mellitus Emphysema lung Social History Social History Social History: Patient lives at home with her and is the primary caregiver for her . Her son and her daughter are her surrogate and she wishes to be a full code at this time. Smoking packs per day: 0.5 Smoking cigarettes per day: 10.0 Years smoked: 20 Smoking pack-years: 10.00 Smoking status: Former smoker Tobacco type: cigarettes Second hand tobacco smoke exposure: Yes Smoking end date: 09/04/10 Additional smoking assessment comments: smoke off and on, quit several times Alcohol intake: never Substance use: never Substance use type: does not use Do You Feel Safe in your Home?: No Lack of Transportation: YES Lack of Food: Never True Current Housing: I Have Housing Concerned About Future Housing: No Difficulty Paying Gas/Electric Bills: No Difficulty Paying for Meds: No Currently Unemployed: No Education: Master's Degree or Higher Difficulty w/ Childcare or Family Care: No Living arrangements: with family Occupation/Education: retired Additional occupation/education comments: Teacher Gender identity (if verbalized by the patient): Female Sexual Orientation (if Verbalized by the Patient): Straight or Heterosexual Spiritual care concerns: No Agree to blood products: Yes Comments At time of signature, agree with nursing past medical, surgical, social and family history. There is no relevant family history pertinent to the presenting complaint. Exam Narrative: GENERAL: This is a well-nourished, well-developed patient, in no apparent distress. HEAD: normocephalic, atraumatic. EYES: PERRL. Sclera clear/white. Vision is grossly intact. EARS: External ears normal, auditory canals clear and without drainage, TMs normal without perforation. Hearing grossly intact. NOSE: External nose normal with clear nasal drainage THROAT: Mucous membranes moist, posterior pharynx clear. NECK: Neck supple, non-tender without lymphadenopathy, masses or thyromegaly. CARDIOVASCULAR: Regular rate and rhythm without murmurs, gallops, or rubs. RESPIRATORY: Clear to auscultation. Breath sounds equal bilaterally. No wheezes, rales, or rhonchi. SKIN: warm, Dry, intact with no suspicious lesions or rash, good texture and turgor. NEURO: awake, alert, and oriented to person, place and time. There were no obvious focal neurologic abnormalities. EXTREMITIES: No joint tenderness, effusion, or edema noted. Course Course Level of Care: Express Care Visit Vital Signs Vital signs: Vital Signs Temperature 37.1 C 01/26/25 10:11 Pulse Rate 103 H 01/26/25 10:11 Respiratory Rate 16 01/26/25 10:11 Blood Pressure 107/85 01/26/25 10:11 Pulse Oximetry 96 01/26/25 10:11 Temperature 37.1 C 01/26/25 10:11 Pulse Rate 103 H 01/26/25 10:11 Respiratory Rate 16 01/26/25 10:11 Blood Pressure 107/85 01/26/25 10:11 Pulse Oximetry 96 01/26/25 10:11 Reviewed MDM - URI/Sore Throat MDM Narrative Medical decision making narrative: Chest x-ray normal. Negative home COVID test yesterday. No respiratory distress. Recommend kyfg-yqa-gxzhwmx medications to treat viral symptoms. Patient is alert, nontoxic. Imaging Data My impression: Agree with radiologist Radiologist's impression: CHEST RADIOGRAPH, PA AND LATERAL CLINICAL HISTORY: cough, SOB . COMPARISON: 07/12/2024 TECHNIQUE: PA and lateral views of the chest. FINDINGS Opacification is present along the right heart border, felt to be due to overlying soft tissues rather than intrinsic pulmonary disease. The remainder of the cardiomediastinal silhouette is otherwise unremarkable. The lungs are clear. IMPRESSION: No focal infiltrate or effusion. Discharge Plan Discharge Clinical Impression: Viral upper respiratory tract infection with cough Patient Disposition: Home Condition: Stable Instructions: Upper Respiratory Infection (ED) Additional Instructions: Your chest x-ray was normal today. Your Symptoms are viral and may last 10-14 days. Take medication as prescribed. Take wilb-ozh-myiovhx Mucinex as directed on packaging. Drink at least 64 oz water a day. Place cool mist humidifier in bedroom where you sleep. See your doctor if symptoms are not improving. Patient Language: Telugu Prescriptions: New benzonatate 200 mg capsule 200 mg PO TID PRN (Reason: cough) Qty: 20 0RF methylprednisolone [Medrol (Tristian)] 4 mg tablets,dose pack See Rx Instructions PO .COMPLEX Qty: 21 0RF Rx Instructions: orally per package directions No Action Eliquis 5 mg tablet 5 mg PO Q12HR Qty: 60 0RF potassium chloride 20 mEq tablet,ER particles/crystals PO Caltrate 600 plus D 600 mg-20 mcg (800 unit) tablet,chewable 1 tablet PO DAILY vitamin B complex [B Complex-Vitamin B12] Tablet 1 tablet PO DAILY cholecalciferol (vitamin D3) 25 mcg (1,000 unit) capsule 25 mcg PO DAILY metoprolol succinate 25 mg tablet extended release 24 hr 25 mg PO DAILY magnesium oxide 250 mg magnesium tablet 250 mg PO DAILY furosemide 20 mg tablet 40 mg PO DAILY Entresto 49-51 mg Tablet 1 tablet PO BID tizanidine 2 mg capsule 2 mg PO Q8H PRN (Reason: muscle spasticity) Qty: 14 0RF Zepbound 5 mg/0.5 mL pen injector 5 mg subcut WEEKLY Qty: 2 6RF Rx Instructions: BMI 44 atorvastatin 20 mg tablet See Rx Instructions .ROUTE .COMPLEX Qty: 90 1RF Dose Instruction: TAKE 1 TABLET BY MOUTH EVERY DAY AT BEDTIME Rx Instructions: TAKE 1 TABLET BY MOUTH EVERY DAY AT BEDTIME Follow-up/Referrals: Kyleigh Read MD [Primary Care Provider] - Time of Disposition: 11:08
== END 2025-01-26 11:10 | disposition home or self-care (01) ==
PROVIDERS: Emergency Provider Nurse Practitioner Family; PCP Family Medicine
DX: J06.9 Acute upper respiratory infection, unspecified (principal); R05.9 Cough, unspecified; Z87.891 Personal history of nicotine dependence; E55.9 Vitamin D deficiency, unspecified; I50.9 Heart failure, unspecified
CPT/HCPCS: 71046; 99213; G0463

== ENCOUNTER 2025-06-03 11:02 | Outpatient (CLI) | payer MEDICARE, SELFPAY ==
--- NOTE | ~2025-06-03 | DEXA_ITS ---
Bone Density Report Name: DARIAN CANTRELL Age: 69 Sex: Female Ethnicity: White Date of : 1955 Indication: postmenopausal; screening for osteoporosis; prior fracture; Referring Provider: JOHANNA POLO Study: Bone densitometry was performed. Exam Date: June 03, 2025 Accession number: [id number] Bone Density: Region BMD T-score Z-score Classification AP Spine(L1-L4) 1.298 2.3 4.5 Normal Femoral Neck (Left) 0.682 -1.5 0.4 Osteopenia Total Hip (Left) 0.838 -0.9 0.8 Normal Femoral Neck (Right) 0.679 -1.5 0.4 Osteopenia Total Hip (Right) 0.829 -0.9 0.7 Normal Total Hip Mean 0.834 -0.9 0.8 Normal World Health Organization criteria for BMD impression classify patients as: Normal (T-score at or above -1.0), Osteopenia (T-score between -1.0 and -2.5), or Osteoporosis (T-score at or below -2.5). 10-year Fracture Risk: FRAX not reported because: Prior hip or vertebral fracture Previous Exams: -- Region Exam Age BMD T-score BMD Change BMD Change Date g/cm2 vs Baseline vs Previous -- AP Spine (L1-L4) 06/03/2025 69 1.298 2.3 5.9%* 5.9%* 10/25/2022 67 1.225 1.6 Total Hip(Left) 06/03/2025 69 0.838 -0.9 -12.2%* -12.2%* 10/25/2022 67 0.954 0.1 Total Hip(Right) 06/03/2025 69 0.829 -0.9 -16.4%* -16.4%* 10/25/2022 67 0.992 0.4 -- *Denotes significance at 95% confidence level, LSC for AP Spine = 0.022 g/cm2, LSC for Total Hip = 0.027 g/cm2 Clinical Information Provided by Patient: Have had a previous hip or vertebral fracture Has had a low trauma fracture Has used the following medications: Vitamin D, Calcium Patient maximum height was 63 Menopause Age: 49 Drinks caffeinated beverages Onset of menses at age 14 Number of children 2 Impression: The patient has low bone mass, based on the Left Femoral Neck T-score. The patient has risk factors, including: previous fracture. The BMD for the Total Hip(Left) decreased, changing by -12.2% since the last DXA exam. The BMD for the Total Hip(Right) decreased, changing by -16.4% since the last DXA exam. Discussion: INCREASED RISK OF FRACTURE DUE TO HISTORY OF FRACTURE. The patient's previous fracture puts the patient at high risk of a future fracture. In untreated patients, the risk of osteoporotic fracture increases approximately two-fold for each 1.0 SD decrease in T-score. Low bone density is not the only risk factor for fracture; also consider factors such as patient's age, frailty or poor health, risk of falling, risk of injury, previous osteoporotic fracture, family history of osteoporosis, cigarette smoking, low body weight, etc. Not everyone with a low trauma fracture has osteoporosis; osteomalacia and other metabolic bone disorders should also be considered. Patients who have osteoporosis should be evaluated for specific diseases and conditions (secondary causes) that may cause or contribute to bone loss and fracture risk. National Osteoporosis Foundation (NOF) recommends pharmacologic intervention for patients with a prior hip or vertebral fracture regardless of BMD T-score. The patient should follow a healthful lifestyle (good nutrition with adequate calcium and vitamin D, and appropriate weight-bearing exercise). Follow-Up: Consider a repeat BMD and Vertebral Fracture Assessment (VFA) exam in 2 years or sooner if medically necessary, to reassess this patient's status. Reported by: EDDIE on 06/03/2025 11:34:00 AM. Reviewed, dictated and finalized at location A.
== END 2025-06-03 11:03 | disposition home or self-care (01) ==
LOC: MICIMG 11:03
PROVIDERS: PCP Family Medicine; Visit Provider Family Medicine
DX: M85.88 Other specified disorders of bone density and structure, other site (principal); Z78.0 Asymptomatic menopausal state; Z87.81 Personal history of (healed) traumatic fracture; Z13.820 Encounter for screening for osteoporosis
CPT/HCPCS: 77080

== ENCOUNTER 2025-06-19 09:55 | Outpatient (CLI) | payer MEDICARE, SELFPAY ==
--- NOTE | ~2025-06-19 | XR_ITS ---
XR lumbar spine min 4V Indication: Disease of spinal cord, no surg, no inj, pain x 2 weeks Comparison: None Findings: Grade 1 anterolisthesis of L3 on L4, remote compression fracture of L3 with loss of height 50%. Moderate loss of disc height throughout with severe loss of disc height at L5-S1. Soft tissues unremarkable Impression: No acute abnormality. Reviewed, dictated and finalized at location P. Impression: No acute abnormality.
== END 2025-06-19 09:56 | disposition home or self-care (01) ==
LOC: GOSHIMG 09:56
PROVIDERS: PCP Family Medicine; Visit Provider Family Medicine
DX: G95.9 Disease of spinal cord, unspecified (principal)
CPT/HCPCS: 72110

== ENCOUNTER 2025-08-07 12:35 | Outpatient (CLI) | payer MEDICARE, SELFPAY ==
--- NOTE | ~2025-08-07 | MR_ITS ---
EXAMINATION: MR lumbar spine wo con DATE: 08/07/2025 13:12 INDICATION: Right foot drop TECHNIQUE: Magnetic resonance imaging (MRI) of the lumbar spine was performed without intravenous contrast. Sequences included sagittal T2-weighted FSE, sagittal T2-weighted FS FSE, sagittal T1-weighted FSE, and axial T2-weighted FSE. COMPARISON: Radiographs dated 06/19/2025 and 03/28/2010 CT dated FINDINGS: 5 mm anterolisthesis L3 on L4, 3 mm anterolisthesis L4 on L5 and 2 mm retrolisthesis L5 on S1. Chronic L3 superior endplate compression fracture with 20% anterior vertebral body height loss. Remaining vertebral body heights are normal. T1 hyperintense fat saturating hemangiomas at T11, T12 and L3. Severe disc height loss with fibrofatty degenerative endplate changes at L5-S1. Marrow signal is otherwise unremarkable. Mild disc height loss at T11-T12, L1-L2, L3-L4 and L4-L5. The conus medullaris terminates at L1-L2. There is normal signal in the caudal spinal cord. Paravertebral soft tissues are unremarkable. The following disc levels are specifically discussed: T12-L1: Disc is minimally bulging. There is moderate bilateral facet joint osteoarthritis. There is mild left neural foraminal stenosis. There is no central canal stenosis. L1-L2: Disc is bulging. There is moderate left and severe right facet joint osteoarthritis. There is mild bilateral neural foraminal stenosis. There is mild central canal stenosis. L2-L3: Disc is bulging. There is severe bilateral facet joint osteoarthritis. There is mild bilateral neural foraminal stenosis. There is moderate central canal stenosis. L3-L4: Disc is bulging with superimposed annular fissure and small left subarticular zone disc extrusion with disc material extending up to 4 mm cephalad to the level of the inferior endplate of L3. There is severe bilateral facet joint osteoarthritis. There is moderate bilateral neural foraminal steno sis. There is severe central canal stenosis. L4-L5: Disc is bulging. There is severe bilateral facet joint osteoarthritis. There is mild left and mild to moderate right neural foraminal stenosis. There is moderate central canal stenosis. L5-S1: Disc is mildly bulging. There is severe bilateral facet joint osteoarthritis. There is moderate left and mild right neural foraminal stenosis. There is minimal central canal stenosis. IMPRESSION: 1. Mild lumbar and severe lumbosacral spondylosis most notable for severe central canal stenosis at L3-L4 resulting in part to 5 mm anterolisthesis of L3 on L4. Reviewed, dictated and finalized at location A. [employer] IMPRESSION: 1. Mild lumbar and severe lumbosacral spondylosis most notable for severe centr al canal stenosis at L3-L4 resulting in part to 5 mm anterolisthesis of L3 on L 4.
== END 2025-08-07 12:36 | disposition home or self-care (01) ==
LOC: MICIMG 12:36
PROVIDERS: PCP Family Medicine; Visit Provider Family Medicine
DX: M47.816 Spondylosis without myelopathy or radiculopathy, lumbar region (principal); M47.817 Spondylosis without myelopathy or radiculopathy, lumbosacral region; M48.061 Spinal stenosis, lumbar region without neurogenic claudication; M43.16 Spondylolisthesis, lumbar region; M21.371 Foot drop, right foot; M53.86 Other specified dorsopathies, lumbar region; G95.9 Disease of spinal cord, unspecified
CPT/HCPCS: 72148

== ENCOUNTER 2025-09-02 13:33 | Outpatient (CLI) | payer MEDICARE, SELFPAY ==
--- NOTE | ~2025-09-02 | XR_ITS ---
EXAMINATION: XR lumbar spine min 4V DATE: 09/02/2025 13:53 INDICATION: Lumbar spinal stenosis TECHNIQUE: Anteroposterior and lateral in neutral, flexion and extension views of the lumbar spine, and cone-down lateral view of the lumbosacral junction were obtained. COMPARISON: Lumbar spine radiographs dated 06/19/2025 and MRI dated 08/07/2025 FINDINGS: 7 degrees lumbar dextrocurvature. 3 mm anterolisthesis L2 on L3 which is unchanged with flexion and extension, 5-6 mm anterolisthesis L3 on L4 is unchanged with extension but increases to 7 mm with flexion and 5 mm anterolisthesis L4 on L5 which is unchanged with extension and which increased to 6 mm with flexion. Chronic L3 superior endplate compression fracture with 20% anterior vertebral body height loss. Remaining vertebral body heights are normal. Severe disc height loss at L5-S1 with prominent anterior endplate osteophytes. Moderate disc height loss at L3-L4 and L4-L5. Mild disc height loss at L1-L2 and L2-L3 as well as a few levels in the lower thoracic spine. Multilevel severe lumbar facet osteoarthritis. Mild osteoarthritis at the bilateral sacroiliac joints. IMPRESSION: 1. Mild to moderate lumbar and severe lumbosacral spondylosis. 2. Grade 1 anterolisthesis at L2-L3 through L4-L5 with minimal increase with flexion at L3-L4 and L4-L5. Reviewed, dictated and finalized at location A. [facility] [employer] IMPRESSION: 1. Mild to moderate lumbar and severe lumbosacral spondylosis. 2. Grade 1 anterolisthesis at L2-L3 through L4-L5 with minimal increase with fl exion at L3-L4 and L4-L5.
== END 2025-09-02 13:34 | disposition home or self-care (01) ==
LOC: GOSHIMG 13:34
PROVIDERS: PCP Family Medicine; Visit Provider Neurological Surgery
DX: M47.817 Spondylosis without myelopathy or radiculopathy, lumbosacral region (principal); M47.816 Spondylosis without myelopathy or radiculopathy, lumbar region; M43.16 Spondylolisthesis, lumbar region; M48.061 Spinal stenosis, lumbar region without neurogenic claudication
CPT/HCPCS: 72110